=== PATIENT | male | born 1980 | race Caucasian/White ===

== ENCOUNTER 2022-12-24 00:12 | Emergency (ER) | payer BC ==
--- OUTSIDE RECORDS SUMMARY | 2022-12-24 00:23 | XMS REPORT | Continuity of Care Document ---
:1980 Author Organization [facility] t Address [address] [facility] [address] [place] [address] Care Team Providers Name Role Phone OSVALDO KING Primary Care Physician Unavailable Osvaldo King Attending Clinician Unavailable Johanna King Attending Clinician Unavailable Raegan KHAN, Celina Sparks Attending Clinician Unavailable LEON MANN Attending Clinician Unavailable Manny Anand MD Attending Clinician Ifeoma Espinoza DO Attending Clinician VICKY FIGUEROA Attending Clinician Unavailable Daphnie Garcia LVN Attending Clinician MARITO PINZON Attending Clinician Unavailable Lam Corrigan Attending Clinician Ninfa Sherman MD Attending Clinician Marito Pinzon MD Attending Clinician LAM NAVARRO Attending Clinician Unavailable Vicky Figueroa MD Attending Clinician Doctor Unassigned, [place] Attending Clinician Unavailable JOHNATHAN WALKER Attending Clinician Unavailable JOHNATHAN AWLKER Attending Clinician Unavailable NOVA GOMEZ Attending Clinician Unavailable Gomez MD, Nova M Attending Clinician EsquivelArabella ANP, Tamika Attending Clinician [phone] LITO BEAUCHAMP Attending Clinician Unavailable Favian ALCANTAR, Alice Attending Clinician Pepe HERRON, [place] Attending Clinician Maria L HERRON, Yvrose Attending Clinician YVROSE LISA Attending Clinician Unavailable Nils TABARES, [place] Attending Clinician MERCED DISLA Attending Clinician Unavailable CASE FUCHS Attending Clinician Unavailable Akila Amaya MD Attending Clinician Case Fuchs MD Attending Clinician ORLIN SEBASTIAN Attending Clinician Unavailable 2, [facility] Attending Clinician Unavailable [facility], [facility] Main Attending Clinician Unavailable Mayte ALCANTAR, Charlie Santos Attending Clinician Jose Attending Clinician Unavailable Neo Islas DO Attending Clinician Barron ALCANTAR, Samaria R Attending Clinician Irena Myles MD Attending Clinician IRENA MYLES Attending Clinician Unavailable Whitney BARKER Attending Clinician Unavailable Whitney Max Attending Clinician [facility] Attending Clinician Unavailable Sydney ALCANTAR, Velma Attending Clinician JAMES CANO Attending Clinician Unavailable James Cano MD Attending Clinician JOHN CARRANZA K.H. Attending Clinician Unavailable John Carranza MD K.H. Attending Clinician , [facility] Echo Room 1 - Attending Clinician Unavailable Grisel Arguelles MD Attending Clinician NIKOS DIAZ Attending Clinician Unavailable Nikos Diaz MD Attending Clinician Unknown, Attending Attending Clinician Unavailable Reinier KHAN, Celina Attending Clinician JESSICA GARNER Attending Clinician Unavailable Winnie ALCANTAR, Daphnie Pepper Attending Clinician [phone] Jessica Garner MD Attending Clinician Katya Cleary MD Attending Clinician Shaan Hassan MD Attending Clinician IFEOMA ESPINOZA Admitting Clinician Unavailable Ifeoma Espinoza DO Admitting Clinician MARITO PINZON Admitting Clinician Unavailable Marito Pinzon MD Admitting Clinician NOVA GOMEZ Admitting Clinician Unavailable CASE FUCHS Admitting Clinician Unavailable Case Fuchs MD Admitting Clinician Jose Admitting Clinician Unavailable Whitney BARKER Admitting Clinician Unavailable YVROSE LISA Admitting Clinician Unavailable NIKOS DIAZ Admitting Clinician Unavailable JESSICA GARNER Admitting Clinician Unavailable Jessica Garner MD Admitting Clinician Shaan Hassan MD Admitting Clinician Payers Payer Name Policy Type Policy Number Effective Date Expiration Date S oscar WONG BCBS BLUE [id number] 2018 ADVANTAGE O 00:00:00 [employer] Blue 6 [id number] [facility] Problems Condition Condition Condition Status Onset Resolution Last Treating Co mments Source Name Details Category Date Date Treatment Clinician Date Mixed Mixed Disease Active Univers hyperlipid hyperlipid 03-27 it y of emia emia 00:00: [place] 00 Medical Branch Abdominal Abdominal Disease Active Uni vers pain, pain, 03-27 it[place] of unspecifie [place]spec[place] d d 00 Medical abdominal abdominal Bran ch location location Acute Acute Disease Active Univers pancreatit pancreatit 4-14 it y of is without is without 00:[place] necrosis necrosis 00 Medica l or or Branch infection, infection, unspecifie unspecifie d d Chronic Chronic Disease Active 2020-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 0-21 ity of pancreatit pancreatit 00:[place]: [place] is [place] 00 Medical Branch Vitamin D Vitamin D Disease Active 2020-07 Uni vers deficiency deficiency 0-07 it y of 00:00: [place] 00 Medical Branch Fatigue, Fatigue, Disease Active 2019-07 Unive rs unspecifie unspecifie 0-02 it y of d type d type 00:00: [place] 00 Medical Branch Herpes Herpes Disease Active 2020- Univers zoster zoster 7-02 ity of without without 00:00: [place] complicati complicati 00 Me dical on on Branch Pericardia Pericardia Disease Active 2020- U nivers l effusion l effusion 3-20 it y of 00:00: [place] 00 [facility] Branch [facility] Disease Active 2020- Unive rs discharge discharge 3-20 ity of follow-up follow-up 00:[place] 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 3-20 ity of zoster zoster 00:00: [place] 00 Medical Branch Incidental Incidental Disease Active 2020-0 U nivers lung lung 3-20 ity of nodule, > nodule, > 00:00[place] 3mm and < 3mm and < 00 Medi jory 8mm 8mm Branch Chest pain Chest pain Disease Active 2020-0 U nivers in adult in adult 3-14 ity of 00:00: [place] 00 Medical Branch Pain of Pain of Disease Active 2019- Univers upper upper 0-07 ity of abdomen abdomen 00:00: [place] 00 Medical Branch Biliary Biliary Disease Active 2019 Univers sludge sludge 0-07 ity of 00:00: [place] 00 Medical Branch Continuous Continuous Disease Active 2019- U nivers dependence dependence 0-07 it y of on on 00:00: [place] cigarette cigarette 00 Medi jory smoking smoking Branch Nicotine Nicotine Disease Active 2019- Unive rs dependence dependence 9-30 it y of with with 00:00: [place] current current 00 Medical use use Branch Biliary Biliary Disease Active 2019- Univers disease disease 9-30 ity of with with 00:00: [place] obstructio obstructio 00 Me dical n n Branch Drug-induc Drug-induc Disease Active 2019- U nivers ed ed 9-30 ity of constipati constipati 00:[place]: [place] on on Medical Branch Nicotine Nicotine Disease Active Unive rs dependence dependence 04-20 it y of with with 00:00: [place] current current 00 Medical use use Branch Acute Acute Disease Active Univers pancreatit pancreatit 04-01 it y of is without is without 00:00: [place] infection infection 00 Medi jory or or Branch necrosis, necrosis, unspecifie unspecifie d d pancreatit pancreatit is type is type Obesity Obesity Disease Active Univers (BMI (BMI 9-11 ity of 30-39.9) 30-39.9) 00:00: [place] 00 Medical Branch [id number] Elevated Problem Comm on cholestero Spirit [facility] Chronic Problem Common pancreatit pancreatit Sp anu is is - [facility] Gout Gout Problem Common Spirit [facility] Gastroesop GERD Problem Commo n hageal (gastroeso Spirit reflux phageal - [facility] disease reflux St disease) [facility] Hypertrigl Hypertrigl Problem C ommon yceridemia yceridemia Sp anu - [facility] Chronic Chronic Problem Common pain pain Spirit [facility] [id number] Moderate Problem Common major Spirit depression [facility] Allergies, Adverse Reactions, Alerts Allergy Allergy Status Severity Reaction(s) Onset Inactive Treating Comm ents Source Name Type Date Date Clinician MORPHINE DRUG Active Low ITCHING Univers (PF) 03-28 ity of 00:00: [place] Medical [place] Morphine Propensi Active Rash Univer s (Pf) ty to 03-28 ity of adverse 00:00: [place] reaction 00 Medical s Branch NO KNOWN Drug Active Univers ALLERGIE Class ity of S [facility] Social History Social Habit Start Date Stop Date Quantity Comments Source Sex Assigned At Common Sp anu - [facility] History of Passive smoker University of tobacco use [facility] Alcohol intake 2022-11-04 2022-11-04 Ex-drinker University of 00:00:00 00:00:00 (finding) [facility] Exposure to 2022-10-24 2022-11-03 Not sure [facility] SARS-CoV-2 00:00:00 16:59:00 [facility] (event) Branch Tobacco use and 2022-11-03 2022-11-03 Smokeless tobacco Un iversity of exposure 00:00:00 00:00:00 non-user [facility] Smoking Status Start Date Stop Date Source Light Tobacco Smoker Edis Díaz Smokes tobacco daily 2022-11-03 00:00:00 Univers ity of [facility] Medications Ordered Filled Start Stop Current Ordering Indication Dosage Frequency Signature Comments Components Source Medication Medication Date Date Medication? Clinician (SIG) Name Name FENTanyl PF Yes 50ug 50 mcg, Uni vers (SUBLIMAZE 4-16 Slow IV ity of (PF)) 14:24: Push, [place] injection 07 Q3HPRN, Medical 50 mcg Starting Branch on [place] 11/04/22 at 0924, Until Discontinu ed, Routine, Pain (scale 7-10) fenofibrate Yes 134mg 134 mg, Un fanny micronized 4-16 Oral, ity of (LOFIBRA) 14:00: DAILY, [place] capsule 134 00 First dose Me dical mg on [facility] 11/04/22 at 0900, Until Discontinu ed, Routine enoxaparin Yes 40mg 40 mg, Unive rs (LOVENOX) 4-16 Subcutaneo ity of injection 14:00: [place], DAILY, [place] 40 mg 00 First dose Medical on [facility] 11/04/22 at 0900, Until Discontinu ed, Routine D10W 0.45% 0 Yes 1000mL at 125 Uni vers NaCl (1/2 4-16 mL/hr, IV ity o f NS) IV 13:00: Infusion, [place] infusion 00 CONTINUOUS Medic al 1,000 mL , Starting Branc h on [place] 11/04/22 at 0800, Until Discontinu ed, Routine LOVAZA 0 Yes 2g 2 g, Oral, Unive rs (omega-3-ac 4-16 BID, First it y of id ethyl 13:00: dose on [place] esters) 00 [place] Medical capsule 2 g 11/04/22 at Br anch 0800, Until Discontinu ed, Routine HYDROcodone 0 2022- No 1{tbl} Take 1 U nivers -acetaminop 4-16 04-16 tablet by it y of hen 5-325 11:57: 00:00 mouth [place] mg tablet 41 :00 every 6 Medical (six) Branch hours as needed. Taken as needed for pancreatic pain HYDROmorpho 2022-0 2022- No 1mg 1 mg, Slow Univers ne 11-04 04-16 IV Push, ity of (DILAUDID) 11:30: 13:24 Q3HPRN, [place] as injection 1 00 :31 Starting Medi jory mg on [facility] 11/04/22 at 0630, Until [place] 11/04/22 at 0824, Routine, Pain (scale 7-10)
U se approved by (Faculty): INTENSIVE CARE UNIT insulin Yes .1U/kg/ 0.1 Univers regular in 4-16 h Units/kg/h ity of 0.9 % NaCl 10:15: r ?90.9 kg [place] (MYXREDLIN) 00 (9.09 Medical 100 mL/hr), IV Branch unit/100 mL Infusion, (1 unit/mL) CONTINUOUS RTU IV , Starting infusion on [place] 11/04/[address] insulin infusion at 0.1 u/kg/hr and keep fixed at that rate. Hold insulin infusion x 1 hour and NHO if BG < 140 mg/dL for instructio ns to increase dextrose fluids. Restart once BG >/= 140 mg/dL
glucagon Yes 1mg 1 mg, Univers (GLUCAGEN 11-04 Intramuscu ity of DIAGNOSTIC 09:14: lar, PRN, [place] KIT) 31 Starting Medical injection 1 on [facility] mg 11/04/22 at 0414, Until Discontinu ed, PILLO, Blood Glucose < or = 70 mg/dL and patient is NPO, unable to swallow or has mental changes. dextrose 50 0 Yes 25mL 25 mL, Univ ers % in water 16 Slow IV ity of (D50W) 09:14: Push, PRN, [place] injection 31 Starting Medica l 25 mL on [facility] 11/04/22 at 0414, Until Discontinu ed, PILLO, Blood Glucose < or = 70 mg/dL and patient is NPO, unable to swallow or has mental status changes. D10W 0.45% 2022-0 2023- No at 125 Univ ers NaCl 11-04-16 mL/hr, IV ity of (1/2NS) IV 08:00: 07:21 Infusion, [place] infusion 00 :00 ONCE, 1 Medical dose, On Branch [place] 11/04/22 at 0300 HYDROmorpho 2022- No 1mg 1 mg, Slow Univers ne 11-04 IV Push, ity of (DILAUDID) 07:30: 06:51 ONCE, 1 [place] as injection 1 00 :00 dose, On Medi jory mg Sun Branch 11/04/22 at 0230, Routine
Use approved by (Faculty): INTENSIVE CARE UNIT D5W 0.45% 2022- No 1000mL at 125 Uni vers NaCl 11-04 mL/hr, ity of (1/2NS) IV 05:15: 07:21 1,000 mL, [place] infusion 00 :00 IV Medical 1,000 mL Infusion, Branch ONCE, 1 dose, On [place] 11/04/22 at 0015, Routine insulin 2022- No .1U/kg/ 0.1 Univer s regular in 11-04 h Units/kg/h it y of 0.9 % NaCl 05:12: 09:18 r ?93 kg [place] (MYXREDLIN) 00 :23 (9.3 Medical 100 mL/hr), IV Branch unit/100 mL Infusion, (1 unit/mL) TITRATE, RTU IV Parameters infusion in Admin. Instr., Starting on [place] 11/04/22 at 0012
PL EASE USE NORMOGLYCE YAMILA
diphenhydrA Yes 25mg 25 mg, Univ ers MINE 11-04 Intravenou ity of (BENADRYL) 04:24: s, Q4HPRN, [place] injection 22 Starting Medica l 25 mg on Sat Branch 11/03/22 at 2324, Until Discontinu ed, Routine, Itching HYDROmorpho 2022- No 1mg 1 mg, Slow Univers ne 11-04 IV Push, ity of (DILAUDID) 04:24: 11:29 Q4HPRN, [place] as injection 1 14 :06 Starting Medi jory mg on [facility] Branch 11/03/22 at 2324, Until [place] 11/04/22 at 0629, Routine, Pain (scale 7-10)
U se approved by (Faculty): INTENS[facility] CARE UNIT ketorolac 2022-0 Yes 15mg 15 mg, Univer s (TORADOL) 11-04 Intramuscu ity of injection 04:17: lar, [place] 15 mg 35 Q6HPRN, Medical Starting Branch on 11/03/22 at 2317, Until Discontinu ed, Routine, Pain (scale 4-6) dextrose 2022-0 Yes 250mL 250 mL, IV Un fanny 10% (D10W) 11-04 Infusion, ity of bolus 04:12: PRN - SEE [place] infusion 08 INSTRUCTIO Medic al 250 mL NS, Branch Administer over 60 Minutes, Other, If blood glucose is < or = 70 mg/dL and patient is unable to swallow or has mental status changes, Starting on 11/03/22 at 2312
If blood glucose is < or = 70 mg/dL and patient is unable to swallow or has mental status changes (Give glucagon order if patient needs fluid restrictio n): IF IV access available: Dextrose 10%. 1. 125 mL (? bag) of D10W IV infusion - equivalent to 12.5 g dextrose 2. Blood glucose - draw blood glucose 15 minutes after D10W Administra tion. 3. If blood glucose is < 80 mg/dL, repeat.
glucagon 0 Yes 1mg 1 mg, Univers (GLUCAGEN 11-04 Intramuscu ity of DIAGNOSTIC 04:12: [place], PRN, [place] KIT) 00 Starting Medical injection 1 on Sat Branch mg 11/03/22 at 2312, Until Discontinu ed, PILLO, Blood Glucose < or = 70 mg/dL and patient is NPO, unable to swallow or has mental changes. ketorolac 0 2022- No 30mg 30 mg, Unive rs (TORADOL) 11-04 Slow IV ity of injection 03:00: 02:13 Push, [place] 30 mg 00 :00 ONCE, 1 Medical dose, On Branch 11/03/22 at 2200, PILLO FENTanyl PF 2022-0 2022- No 100ug 100 mcg, Univers (SUBLIMAZE 11-04 Slow IV ity o f (PF)) 01:45: 00:51 [place], [place] injection 00 :00 ONCE, 1 Medical 100 mcg dose, On Branch 11/03/22 at 2045, STAT iopamidol 2022- No [id number] 80mL 80 mL, U nivers (ISOVUE 11-04 Intravenou ity o f 370-500 mL) 01:05: 01:30 s, ONCE, 1 [place] injection 00 :00 dose, On Medica l 80 mL Sat Branch 11/03/22 at 2030, Routine FENTanyl PF 2022- No 75ug 75 mcg, Un fanny (SUBLIMAZE 11-04 Slow IV ity o f (PF)) 00:45: 23:51 [place], [place] injection 00 :00 ONCE, 1 Medical 75 mcg dose, On Branch 11/03/22 at 1945, Routine maalox:diph No 15mL 15 mL, Uni vers enhydrAMINE 11-04 Oral, ity of :lidocaine 00:00: 23:58 ONCE, 1 [place] as 2 % viscous 00 :00 dose, On Medi jory 1:1:1 Sat [place] ([facility] 11/03/22 at [facility]) 1900, IPLLO oral suspension 15 mL NaCl 0.9% 2022- No 1000mL at 999 Uni vers (NS) bolus 11-03-15 mL/hr, ity of infusion 23:15: 23:47 1,000 mL, [place] as 1,000 mL 00 :00 IV Medical Infusion, Branch ONCE, 1 dose, On 11/03/22 at 1815, STAT metoclopram 2022- No 10mg 10 mg, Uni vers heidi HCl 11-03 Slow IV ity of (REGLAN) 22:30: 22:40 Push, [place] injection 00 :00 ONCE, 1 Medical 10 mg dose, On Branch 11/03/22 at 1730, PILLO rosuvastati Yes 40mg 40 mg, Univ ers n (CRESTOR) 9-08 Oral, QHS, it y of tablet 40 02:00: First dose [place] mg 00 on Wed Medical 03/28/22 at Branch 2100, Until Discontinu ed, Routine morphine ER 2021-0 Yes 15mg 15 mg, Univ ers (MS CONTIN) 03-28 Oral, ity of 12 hr 20:30: Q12H, [place] tablet 15 00 First dose Medi jory mg on Sat [place] 03/28/22 at 1530, Until Discontinu ed, Routine lactated 2021-0 Yes 1000mL at 150 Unive rs ringers IV 9-07 mL/hr, ity of infusion 15:00: 1,000 mL, [place] 1,000 mL 00 IV Medical Infusion, [place] CONTINUOUS , Starting on Sat03/28/22 at 1000, Until Discontinu ed, Routine buPROPion 2021-0 Yes 100mg 100 mg, Univ ers (WELLBUTRIN 03-28 Oral, BID, it y of ) tablet 14:30: First dose [place] as 100 mg 00 on [facility] 03/28/22 at Branch 0930, Until Discontinu ed, Routine pantoprazol 2021-0 Yes 40mg 40 mg, Univ ers e 03-28 Oral, ity of (PROTONIX) 14:00: DAILY, [place] EC tablet 00 First dose Medi jory 40 mg on Sat [place] 03/28/22 at 0900, Until Discontinu ed, Routine nicotine 2021-0 Yes 1{patch 1 Patch, Un fanny (NICODERM) 03-28 } Topical, ity o f 21 mg/24 hr 14:00: Administer [place] patch 1 00 over 24 Medical Patch Hours, [place] DAILY, First dose on Sat03/28/22 at 0900, Until Discontinu ed, Routine fenofibrate 2021-0 Yes 134mg 134 mg, Un fanny micronized 03-28 Oral, ity of (LOFIBRA) 14:00: DAILY, [place] capsule 134 00 First dose Me dical mg on Sat [place] 03/28/22 at 0900, Until Discontinu ed, Routine ergocalcife 202-0 Yes [id number] 50,000 Un fanny rol 07 Units, ity of (vitamin 14:00: Oral, [place] d2) 00 QWEEKLY, Medical (CALCIFEROL First dose Br anch ) capsule on Sat 50,000 03/28/22 at Units 0900, Until Discontinu ed, Routine docusate 2021-0 Yes 100mg 100 mg, Unive rs (COLACE) 03-28 Oral, ity of capsule 100 14:00: DAILY, [place] mg 00 First dose Medical on Sat Branch 03/28/22 at 0900, Until Discontinu ed, Routine enoxaparin Yes 40mg 40 mg, Unive rs (LOVENOX) 03-28 Subcutaneo ity of injection 14:00: [place], DAILY, [place] 40 mg 00 First dose Medical on Sat Branch 03/28/22 at 0900, Until Discontinu ed, Routine diphenhydrA Yes 25mg 25 mg, Univ ers MINE 03-28 Oral, ity of (BENADRYL) 13:57: Q6HPRN, [place] tablet 25 47 Starting Medica l mg on Sat Branch 03/28/22 at 0857, Until Discontinu ed, Routine, Mild Rash, Itching FENTanyl PF Yes 50ug 50 mcg, Uni vers (SUBLIMAZE 03-28 Slow IV ity of (PF)) 13:57: Push, [place] injection 36 Q4HPRN, Medical 50 mcg Starting Branch on Sat03/28/22 at 0857, Until Discontinu ed, Routine, Pain (scale 7-10) lipase-prot 2021- No 1{capsu 1 capsule, Univers ease-amylas 03-28 le} Oral, TID it y of e 13:00: 12:59 MEALS, 9 [place] (PANCREAZE) 00 :00 doses, Medica l 16,800-56,8 First dose Br anch 00- 98,400 on Sat03/28/22 at capsule 1 0800, Last capsule dose on Sat03/30/22 at 1700, Routine methylpredn 2021- No 60mg 60 mg, Uni vers isolone sod 03-28 Intravenou i ty of succ 09:00: 08:12 s, ONCE, 1 [place] (SOLU-MEDRO 00 :00 dose, On Medi jory L) Sat03/28/22 Branch injection at 0400, 2 60 mg mL piperacilli 2021- No 3.375g 3.375 g, Univers n-tazobacta 03-28 IV ity of m (ZOSYN) 05:30: 05:29 Piggyback, [place] 3.375 g in 00 :00 Q8H ABX, 9 Med ical NaCl 0.9% doses, Branch (NS) 50 mL First dose MINI-BAG on Sat03/28/22 at 0030, Last dose on Sat03/30/22 at 1630, Administer over 4 Hours, 50 mL
Reas on for Anti-Infec tive: Documented Infection< br>Docu mented Infection Site: Abdominal< br>Duratio n of Therapy: 10 days insulin 2021- No 2U/h 2 Units/hr Uni vers regular in 03-28 (2 mL/hr), it y of 0.9 % NaCl 04:59: 11:58 IV [place] (MYXREDLIN) 19 :19 Infusion, Med ical 100 TITRATE, Branch unit/100 mL Parameters (1 unit/mL) in Admin. RTU IV Instr., infusion Starting on Sat03/27/22 at 2359, For 7 hours
P LEASE USE NORMOGLYCE YAMILA CALCULATOR &nbs p;For Patients WITHOUT ESRD: &nbs p;INITIA TION OF INSULIN DRIP:&nb sp; I f two consecutiv e blood glucose levels (BG) are at or above 180 mg/dL: begin continuous intravenou s infusion of regular Insulin (100 units/100 mL NS) at the following rate: as follows:&n bsp; 1 unit/hr (1 mL/hr.) if initial BG between 180 and 220 mg/dL OR 2 units/hr (2 mL/hr.) if initial BG above 220 mg/dL. &nbs p;Check BG at least every hour until three consecutiv e BG measuremen ts remain in the 140- 180 mg/dL range; BG monitoring may then change to every 2 hours if patient is otherwise stable. Go back to closer BG monitoring as soon as condition warrants. &nbs p; INSULIN RATE ADJUSTMENT INSTRUCTIO NS (to keep BG in the 140- 180 mg/dL range) &n bsp;FOR BLOOD GLUCOSE LESS THAN OR EQUAL THAN 70 MG/DL: Stop insulin infusion, notify ICU warehouse shift supervisor, and treat using hypoglycem ia protocol. Once BG &n bsp;greate r than 80 mg/dL start monitoring glucose every hour. Restart Insulin infusion at HALF of prior rate only when TWO consecutiv e BG levels 1 hour apart are at or above 180 mg/dL. &nbs p;FOR BLOOD GLUCOSE BETWEEN 71-139 MG/DL:&nbs p; St op insulin and continue to check BG every hour.&nbsp ; Res tart insulin infusion at HALF of prior rate once BG is above 140 mg/dL.&nbs p; FO R BLOOD GLUCOSE BETWEEN 140-180 MG/DL: Monitor BG hourly; may recheck BG in 2 hours if BG has been stable within this range for THREE consecutiv e readings.& nbsp;&nbsp ;If BG is stable (+/- 20 mg/dL change) at 140-180 mg/dL, no insulin rate change is needed.&nb sp; If BG hourly levels decreasing by more than 20 mg/dL: DECREASE insulin rate by 1.0 unit/hr. If BG hourly levels increasing by more than 20 mg/dL: INCREASE insulin rate by 0.5 unit/hr.&n bsp; FOR BLOOD GLUCOSE ABOVE 180 MG/DL: Monitor BG hourly. If BG falls by less than 40 mg/dL from previous measure, increase insulin rate by 1 unit an hour if BG is between 180 and 220 mg/dL and by 2 units an hour if BG is above 220 mg/dL. Recheck BG in 1 hour.&nbsp ; If BG falls by 40 mg/dL or more from previous measure, then no rate change is needed.&nb sp; N otify ICU Undertaker Assistant if BG remains above 220 mg/dL for longer than 4 hours despite treatment.
D5W 0.9% 2021- No IV Univers NaCl (NS) 1 03-28 Infusion, it y of L + KCL 20 04:15: 13:59 at 125 [place] mEq 00 :07 mL/hr, Medical CONTINUOUS Branch , Starting on Sat03/27/22 at 2315, Until Sat03/28/22 at 0859, Routine glucagon Yes 1mg 1 mg, Univers (GLUCAGEN 03-28 Intramuscu ity of DIAGNOSTIC 03:59: [place], PRN, [place] KIT) 19 Starting Medical injection 1 on e Branch mg 03/27/22 at 2259, Until Discontinu ed, PILLO, Blood Glucose < or = 70 mg/dL and patient is unable to swallow or has mental changes. dextrose 50 2021- Yes 25mL 25 mL, Univ ers % in water 03-28 Slow IV ity of (D50W) 03:59: Push, PRN, [place] injection 19 Starting Medica l 25 mL on e Branch 03/27/22 at 2259, Until Discontinu ed, PILLO, Blood Glucose < or = 70 mg/dL and patient is unable to swallow or has mental status changes. ondansetron Yes 4mg 4 mg, Slow Univers (ZOFRAN 03-28 IV Push, ity of (PF)) 03:56: Q6HPRN, [place] injection 4 38 Starting Medi jory mg on [facility] Branch 03/27/22 at 2256, Until Discontinu ed, Routine, Nausea and Vomiting (N/V) HYDROcodone 2021- No 1{tbl} 1 tablet, Univers -acetaminop 03-28 Oral, ity of hen (NORCO 03:56: 03:55 Q4HPRN, [place] as 5) 5-325 mg 25 :25 Starting Medi jory tablet 1 on [facility] tablet 03/27/22 at 2256, Until Maryann 03/29/22 at 2255, Routine, Pain (scale 4-6) morpHINE (4 2021-2021- No 4mg 4 mg, Slow Univers mg/mL) 03-28 IV Push, ity of injection 4 03:56: 13:59 Q4HPRN, [place] mg 11 :07 Starting Medical on Branch 03/27/22 at 2256, Until 03/28/22 at 0859, Routine, Pain (scale 7-10) acetaminoph 2021- Yes 650mg 650 mg, Un fanny en 03-28 Oral, ity of (TYLENOL) 03:55: Q6HPRN, [place] tablet 650 44 Starting Medic al mg on [facility] Branch 03/27/22 at 2255, Until Discontinu ed, Routine, Pain (scale 1-3) ondansetron 2021- No 4mg 4 mg, Slow Univers (ZOFRAN 03-28 IV Push, ity of (PF)) 01:01: 01:02 ONCE, 1 [place] injection 4 00 :00 dose, On Medi jory mg 03/27/22 Branch at 2014, PILLO morpHINE (4 2021- No 4mg 4 mg, Slow Univers mg/mL) 03-28 IV Push, ity of injection 4 01:01: 01:02 ONCE, 1 [place] mg 00 :00 dose, On Medical [facility] 03/27/22 Branch at 2014, STAT iopamidol 2021- No [id number] 65mL 65 mL, U nivers (ISOVUE 03-27 Intravenou ity o f 370-500 mL) 23:15: 23:15 s, ONCE, 1 [place] injection 00 :00 dose, On Medica l 65 mL 03/27/22 Branch at 1815, Routine morpHINE (4 2021- No 4mg 4 mg, Slow Univers mg/mL) 03-27 IV Push, ity of injection 4 22:15: 22:05 ONCE, 1 [place] mg 00 :[place] dose, On Medical [facility] 03/27/22 Branch at 1715, STAT ketorolac 2021- No 30mg 30 mg, Unive rs (TORADOL) 03-27 Slow IV ity of injection 21:45: 20:42 Push, [place] 30 mg 00 :00 ONCE, 1 Medical dose, On Branch [facility] 03/27/22 at 1645, PILLO ondansetron 2021- No 4mg 4 mg, Slow Univers (ZOFRAN 03-27 IV Push, ity of (PF)) 20:45: 20:42 ONCE, 1 [place] injection 4 00 :00 dose, On Medi jory mg [facility] 03/27/22 Branch at 1545, PILLO rosuvastati Yes [id number] 40mg Take 1 Univers n 40 mg 03-27 tablet by ity of tablet 00:00: mouth at [place] 00 bedtime. Medical Branch rosuvastati Yes [id number] 40mg Take 1 Univers n 40 mg 9-06 tablet by ity of tablet 00:00: mouth at [place] [address] bedtime. Medical Branch rosuvastati Yes [id number] 40mg Take 1 Univers n 40 mg 9-06 tablet by ity of tablet 00:00: mouth at [place] 00 bedtime. Medical Branch rosuvastati 2022- No [id number] 40mg Take 1 Univers n 40 mg 9-06 04-16 tablet by ity of tablet 00:00: 00:00 mouth at [place] 00 :00 bedtime. Medical Branch icosapent Yes [id number] TAKE 2 U nivers ethyL 1 7-30 CAPSULES ity of gram 00:00: BY MOUTH [place] capsule 00 TWICE Medical DAILY WITH Branch FOOD. SWALLOW WHOLE AND DO NOT CHEW OR OPEN OR DISSOLVE OR CRUSH icosapent Yes [id number] TAKE 2 U nivers ethyL 1 7-30 CAPSULES ity of gram 00:00: BY MOUTH [place] capsule 00 TWICE Medical DAILY WITH Branch FOOD. SWALLOW WHOLE AND DO NOT CHEW OR OPEN OR DISSOLVE OR CRUSH icosapent Yes [id number] TAKE 2 U nivers ethyL 1 7-30 CAPSULES ity of gram 00:00: BY MOUTH [place] capsule 00 TWICE Medical DAILY WITH Branch FOOD. SWALLOW WHOLE AND DO NOT CHEW OR OPEN OR DISSOLVE OR CRUSH icosapent 2022- No [id number] TAKE 2 Univers ethyL 1 7-30 04-16 CAPSULES ity of gram 00:00: 00:00 BY MOUTH [place] capsule 00 :00 TWICE Medical DAILY WITH Branch FOOD. SWALLOW WHOLE AND DO NOT CHEW OR OPEN OR DISSOLVE OR CRUSH Econazole Econazole 2021- No 1{appli BID Econazole Nitrate 1 % Nitrate 1 % 01-23 cation} Nitrate 1 00:00: 00:00 % 00 :00 Acetaminoph Acetaminoph 2021- No 1{table TID Acetaminop en-Codeine en-Codeine 01-05 t_as_ne hen-Codein 300-30 MG 300-30 MG 00:00: 00:00 eded} e 300-30 00 :00 MG DULoxetine DULoxetine 2022-0 No 1{capsu QD DULoxetine HCl 20 MG HCl 20 MG 6-15 le} HCl 20 MG 00:00: 00 DULoxetine DULoxetine 2021-0 No 1{capsu QD DULoxetine HCl 20 MG HCl 20 MG 6-15 le} HCl 20 MG 00:00: 00 DULoxetine DULoxetine 2021-0 No 1{capsu QD DULoxetine HCl 20 MG HCl 20 MG 6-15 le} HCl 20 MG 00:00: 00 DULoxetine DULoxetine 2021-0 No 1{capsu QD DULoxetine HCl 20 MG HCl 20 MG 6-15 le} HCl 20 MG 00:00: 00 Acetaminoph Acetaminoph 2021-0 202- No 1{table TID Acetaminop en-Codeine en-Codeine 12-21 t_as_ne hen-Codein 300-30 MG 300-30 MG 00:00: 00:00 eded} e 300-30 00 :00 MG Acetaminoph Acetaminoph 202- No 1{table TID Acetaminop en-Codeine en-Codeine 12-21 t_as_ne hen-Codein 300-30 MG 300-30 MG 00:00: 00:00 eded} e 300-30 00 :00 MG ergocalcife 2020-07 Yes [id number] Take 1 Univers rol, 0-07 capsule by ity of vitamin d2, 00:00: mouth [place] 1,250 mcg 00 weekly. Medical (50,000 Branch unit) capsule ergocalcife 2020-07 Yes [id number] Take 1 Univers rol, 0-07 capsule by ity of vitamin d2, 00:00: mouth [place] 1,250 mcg 00 weekly. Medical (50,000 Branch unit) capsule ergocalcife 2020-07 Yes [id number] Take 1 Univers rol, 0-07 capsule by ity of vitamin d2, 00:00: mouth [place] 1,250 mcg 00 weekly. Medical (50,000 Branch unit) capsule ergocalcife 2020-07 Yes [id number] Take 1 Univers rol, 0-07 capsule by ity of vitamin d2, 00:00: mouth [place] 1,250 mcg 00 weekly. Medical (50,000 Branch unit) capsule ergocalcife 2020-07- No [id number] Take 1 Univers rol, 0-07 04-16 capsule by ity of vitamin d2, 00:00: 00:00 [place] 1,250 [place]cg 00 :00 weekly. Medical (50,000 Branch unit) capsule buPROPion Yes [id number] 100mg Take 1 Univers SR 9-29 tablet by ity of (WELLBUTRIN 00:00: mouth 2 [place] SR) 100 mg 00 (two) Medical SR tablet times Branch daily. lipase-prot Yes [id number] 3000U Take 1 Univers ease-amylas 9-29 capsule by it y of e (CREON) 00:00: mouth 3 [place] 3,000-9,500 00 (three) Medic al - 15,000 times Branch unit daily with capsule meals as needed (Abdominal pain). pantoprazol Yes [id number] 40mg Take 1 Univers e 40 mg EC 9-29 tablet by ity of tablet 00:00: mouth [place] 00 daily. Medical Branch fenofibrate Yes [id number] 134mg Take 1 Univers micronized 9-29 capsule by ity of 134 mg 00:00: mouth [place] capsule 00 daily. Medical Branch nicotine 14 Yes [id number] 1{patch Apply 1 Univers mg/24 hr 9-29 } Patch to ity of patch 00:00: area(s) [place] 00 every 24 Medical (twenty-fo Branch ur) hours. Apply 21mg patch daily x 6 weeks; then apply 14mf patch daily x 2 weeks; then apply 7mg patch daily x 2 weeks. Stop smoking on initiation of therapy nicotine 21 Yes [id number] 1{patch Apply 1 Univers mg/24 hr 9-29 } Patch to ity of patch 00:00: area(s) [place] 00 daily. Medical Apply 21mg Branch patch daily x 6 weeks; then apply 14mg patch daily x 2 weeks; then apply 7mg patch daily x 2 weeks. Stop smoking on initiation of therapy nicotine 7 Yes [id number] 1{patch Apply 1 Univers mg/24 hr 9-29 } Patch to ity of patch 00:00: area(s) [place] 00 every 24 Medical (twenty-fo Branch ur) hours. Apply 21mg patch daily x 6 weeks; then apply 14mg patch daily x 2 weeks; then apply 7mg patch daily x 2 weeks. Stop smoking on initiation of therapy buPROPion Yes [id number] 100mg Take 1 Univers SR 9-29 tablet by ity of (WELLBUTRIN 00:00: mouth 2 [place] SR) 100 mg 00 (two) Medical SR tablet times Branch daily. lipase-prot Yes [id number] 3000U Take 1 Univers ease-amylas 9-29 capsule by it y of e (CREON) 00:00: mouth 3 [place] 3,000-9,500 00 (three) Medic al - 15,000 times Branch unit daily with capsule meals as needed (Abdominal pain). pantoprazol Yes [id number] 40mg Take 1 Univers e 40 mg EC 9-29 tablet by ity of tablet 00:00: mouth [place] 00 daily. Medical Branch fenofibrate Yes [id number] 134mg Take 1 Univers micronized 9-29 capsule by ity of 134 mg 00:00: mouth [place] capsule 00 daily. Medical Branch nicotine 21 Yes [id number] 1{patch Apply 1 Univers mg/24 hr 9-29 } Patch to ity of patch 00:00: area(s) [place] 00 daily. Medical Apply 21mg Branch patch daily x 6 weeks; then apply 14mg patch daily x 2 weeks; then apply 7mg patch daily x 2 weeks. Stop smoking on initiation of therapy buPROPion Yes [id number] 100mg Take 1 Univers SR 9-29 tablet by ity of (WELLBUTRIN 00:00: mouth 2 [place] SR) 100 mg 00 (two) Medical SR tablet times Branch daily. lipase-prot Yes [id number] 3000U Take 1 Univers ease-amylas 9-29 capsule by it y of e (CREON) 00:00: mouth 3 [place] 3,000-9,500 00 (three) Medic al - 15,000 times Branch unit daily with capsule meals as needed (Abdominal pain). pantoprazol Yes [id number] 40mg Take 1 Univers e 40 mg EC 9-29 tablet by ity of tablet 00:00: mouth [place] 00 daily. Medical Branch fenofibrate Yes [id number] 134mg Take 1 Univers micronized 9-29 capsule by ity of 134 mg 00:00: mouth [place] capsule 00 daily. Medical Branch nicotine 21 Yes [id number] 1{patch Apply 1 Univers mg/24 hr 9-29 } Patch to ity of patch 00:00: area(s) [place] 00 daily. Medical Apply 21mg Branch patch daily x 6 weeks; then apply 14mg patch daily x 2 weeks; then apply 7mg patch daily x 2 weeks. Stop smoking on initiation of therapy buPROPion Yes [id number] 100mg Take 1 Univers SR 9-29 tablet by ity of (WELLBUTRIN 00:00: mouth 2 [place] SR) 100 mg 00 (two) Medical SR tablet times Branch daily. lipase-prot Yes [id number] 3000U Take 1 Univers ease-amylas 9-29 capsule by it y of e (CREON) 00:00: mouth 3 [place] 3,000-9,500 00 (three) Medic al - 15,000 times Branch unit daily with capsule meals as needed (Abdominal pain). pantoprazol Yes [id number] 40mg Take 1 Univers e 40 mg EC 9-29 tablet by ity of tablet 00:00: mouth [place] 00 daily. Medical Branch fenofibrate Yes [id number] 134mg Take 1 Univers micronized 9-29 capsule by ity of 134 mg 00:00: mouth [place] capsule 00 daily. Medical Branch nicotine 21 Yes [id number] 1{patch Apply 1 Univers mg/24 hr 9-29 } Patch to ity of patch 00:00: area(s) [place] 00 daily. Medical Apply 21mg Branch patch daily x 6 weeks; then apply 14mg patch daily x 2 weeks; then apply 7mg patch daily x 2 weeks. Stop smoking on initiation of therapy buPROPion 2022- No [id number] 100mg Take 1 Univers SR 9-29 04-16 tablet by ity of (WELLBUTRIN 00:00: 00:00 mouth 2 [place] SR) 100 mg 00 :00 (two) Medical SR tablet times Branch daily. lipase-prot 2022- No [id number] 3000U Take 1 Univers ease-amylas 9-29 04-16 capsule by i ty of e (CREON) 00:00: 00:00 mouth 3 [place] 3,000-9,500 00 :00 (three) Medic al - 15,000 times Branch unit daily with capsule meals as needed (Abdominal pain). pantoprazol 2022- No [id number] 40mg Take 1 Univers e 40 mg EC 04-19 tablet by ity of tablet 00:00: 00:00 mouth [place] 00 :00 daily. Medical Branch fenofibrate 2022- No [id number] 134mg Take 1 Univers micronized 04-19 capsule by it y of 134 mg 00:00: 00:00 mouth [place] capsule 00 :00 daily. Medical Branch nicotine 21 2022- No [id number] 1{patch Apply 1 Univers mg/24 hr 04-19 } Patch to ity of patch 00:00: 00:00 [facility](s) [place] 00 :00 daily. Medical Apply 21mg Branch patch daily x 6 weeks; then apply 14mg patch daily x 2 weeks; then apply 7mg patch daily x 2 weeks. Stop smoking on initiation of therapy atorvastati 2021- No [id number] 80mg Take 1 Univers n 80 mg 04-19 tablet by ity of tablet 00:00: 00:00 mouth at [place] 00 :00 bedtime. Medical Branch nicotine 14 2021- No [id number] 1{patch Apply 1 Univers mg/24 hr 04-19 } Patch to ity of patch 00:00: 00:00 [facility](s) [place] 00 :00 every 24 Medical (twenty-fo Branch ur) hours. Apply 21mg patch daily x 6 weeks; then apply 14mf patch daily x 2 weeks; then apply 7mg patch daily x 2 weeks. Stop smoking on initiation of therapy nicotine 7 2021- No [id number] 1{patch Apply 1 Univers mg/24 hr 04-19 } Patch to ity of patch 00:00: 00:00 [facility](s) [place] 00 :00 every 24 Medical (twenty-fo Branch ur) hours. Apply 21mg patch daily x 6 weeks; then apply 14mg patch daily x 2 weeks; then apply 7mg patch daily x 2 weeks. Stop smoking on initiation of therapy ibuprofen ibuprofen No 1 TID ibuprofen [place] 800 mg 800 mg 800 mg da tablet Take tablet Take tablet Medical 1 tablet 3 1 tablet 3 Take 1 G roup times a day times a day tablet 3 by oral by oral times a route. route. day by oral route. Icosapent Icosapent No 2{capsu BID Icosapent Ethyl 1 GM Ethyl 1 GM les_wit Ethyl 1 GM h_meals } Creon Creon No TID Creon [id number] [phone] UNIT UNIT UNIT DULoxetine DULoxetine No 1{capsu QD DULoxetine HCl 20 MG HCl 20 MG le} HCl 20 MG Fenofibrate Fenofibrate No 1{capsu QD Fenofibrat 134 MG 134 MG le_with e 134 MG _a_meal } Icosapent Icosapent No 2{capsu BID Icosapent Ethyl 1 GM Ethyl 1 GM les_wit Ethyl 1 GM h_meals } Atorvastati Atorvastati No 1{table QD Atorvastat n Calcium n Calcium t} in Calcium 80 MG 80 MG 80 MG Pantoprazol Pantoprazol No 1{table QD Pantoprazo e Sodium 40 e Sodium 40 t} le Sodium MG MG 40 MG Atorvastati Atorvastati No 1{table QD Atorvastat n Calcium n Calcium t} in Calcium 80 MG 80 MG 80 MG Pantoprazol Pantoprazol No 1{table QD Pantoprazo e Sodium 40 e Sodium 40 t} le Sodium MG MG 40 MG Fenofibrate Fenofibrate No 1{capsu QD Fenofibrat 134 MG 134 MG le_with e 134 MG _a_meal } silver silver No silver [place] sulfadiazin sulfadiazin sulfadiazi da e 1 % e 1 % ne 1 % Medical topical topical topical Group cream APPLY cream APPLY cream A 1/16 INCH A 1/16 INCH APPLY A (1.5 MM) (1.5 MM) 1/16 INCH THICK LAYER THICK LAYER (1.5 MM) TO ENTIRE TO ENTIRE THICK BURN AREA BURN AREA LAYER TO BY BY ENTIRE TOPICALROUT TOPICALROUT BURN AREA E 2 TIMES E 2 TIMES BY PER DAY PER DAY TOPICALROU TE 2 TIMES PER DAY Icosapent Icosapent No 2{capsu BID Icosapent Ethyl 1 GM Ethyl 1 GM les_wit Ethyl 1 GM h_meals } Creon Creon No TID Creon [phone] UNIT UNIT UNIT DULoxetine DULoxetine No 1{capsu QD DULoxetine HCl 20 MG HCl 20 MG le} HCl 20 MG Atorvastati Atorvastati No 1{table QD Atorvastat n Calcium n Calcium t} in Calcium 80 MG 80 MG 80 MG Pantoprazol Pantoprazol No 1{table QD Pantoprazo e Sodium 40 e Sodium 40 t} le Sodium MG MG 40 MG Fenofibrate Fenofibrate No 1{capsu QD Fenofibrat 134 MG 134 MG le_with e 134 MG _a_meal } Icosapent Icosapent No 2{capsu BID Icosapent Ethyl 1 GM Ethyl 1 GM les_wit Ethyl 1 GM h_meals } Creon Creon No TID Creon [phone] UNIT UNIT UNIT DULoxetine DULoxetine No 1{capsu QD DULoxetine HCl 20 MG HCl 20 MG le} HCl 20 MG Atorvastati Atorvastati No 1{table QD Atorvastat n Calcium n Calcium t} in Calcium 80 MG 80 MG 80 MG Pantoprazol Pantoprazol No 1{table QD Pantoprazo e Sodium 40 e Sodium 40 t} le Sodium MG MG 40 MG Fenofibrate Fenofibrate No 1{capsu QD Fenofibrat 134 MG 134 MG le_with e 134 MG _a_meal } Icosapent Icosapent No 2{capsu BID Icosapent Ethyl 1 GM Ethyl 1 GM les_wit Ethyl 1 GM h_meals } Creon Creon No TID Creon [phone] UNIT UNIT UNIT DULoxetine DULoxetine No 1{capsu QD DULoxetine HCl 20 MG HCl 20 MG le} HCl 20 MG Pantoprazol Pantoprazol No 1{table QD Pantoprazo e Sodium 40 e Sodium 40 t} le Sodium MG MG 40 MG DULoxetine DULoxetine No 1{capsu QD DULoxetine HCl 40 MG HCl 40 MG le} HCl 40 MG Creon Creon No TID Creon [phone] UNIT UNIT UNIT Icosapent Icosapent No 2{capsu BID Icosapent Ethyl 1 GM Ethyl 1 GM les_wit Ethyl 1 GM h_meals } Fenofibrate Fenofibrate No 1{capsu QD Fenofibrat 134 MG 134 MG le_with e 134 MG _a_meal } Atorvastati Atorvastati No 1{table QD Atorvastat n Calcium n Calcium t} in Calcium 80 MG 80 MG 80 MG Atorvastati Atorvastati No 1{table QD Atorvastat n Calcium n Calcium t} in Calcium 80 MG 80 MG 80 MG Pantoprazol Pantoprazol No 1{table QD Pantoprazo e Sodium 40 e Sodium 40 t} le Sodium MG MG 40 MG Creon Creon No Creon [phone] UNIT UNIT UNIT Fenofibrate Fenofibrate No 1{capsu QD Fenofibrat 134 MG 134 MG le_with e 134 MG _a_meal } Pantoprazol Pantoprazol No 1{table QD Pantoprazo e Sodium 40 e Sodium 40 t} le Sodium MG MG 40 MG Fenofibrate Fenofibrate No 1{capsu QD Fenofibrat 134 MG 134 MG le_with e 134 MG _a_meal } Creon Creon No Creon [phone] UNIT UNIT UNIT Atorvastati Atorvastati No 1{table QD Atorvastat n Calcium n Calcium t} in Calcium 80 MG 80 MG 80 MG Pantoprazol Pantoprazol No 1{table QD Pantoprazo e Sodium 40 e Sodium 40 t} le Sodium MG MG 40 MG Fenofibrate Fenofibrate No 1{capsu QD Fenofibrat 134 MG 134 MG le_with e 134 MG _a_meal } Creon Creon No Creon [phone] UNIT UNIT UNIT Atorvastati Atorvastati No 1{table QD Atorvastat n Calcium n Calcium t} in Calcium 80 MG 80 MG 80 MG Pantoprazol Pantoprazol No 1{table QD Pantoprazo e Sodium 40 e Sodium 40 t} le Sodium MG MG 40 MG Fenofibrate Fenofibrate No 1{capsu QD Fenofibrat 134 MG 134 MG le_with e 134 MG _a_meal } Creon Creon No Creon [phone] UNIT UNIT UNIT Atorvastati Atorvastati No 1{table QD Atorvastat n Calcium n Calcium t} in Calcium 80 MG 80 MG 80 MG Creon Creon No Creon [phone] UNIT UNIT UNIT Pantoprazol Pantoprazol No 1{table QD Pantoprazo e Sodium 40 e Sodium 40 t} le Sodium MG MG 40 MG Icosapent Icosapent No 2{capsu BID Icosapent Ethyl 1 GM Ethyl 1 GM les_wit Ethyl 1 GM h_meals } Fenofibrate Fenofibrate No 1{capsu QD Fenofibrat 134 MG 134 MG le_with e 134 MG _a_meal } Atorvastati Atorvastati No 1{table QD Atorvastat n Calcium n Calcium t} in Calcium 80 MG 80 MG 80 MG Creon Creon No Creon [phone] UNIT UNIT UNIT Pantoprazol Pantoprazol No 1{table QD Pantoprazo e Sodium 40 e Sodium 40 t} le Sodium MG MG 40 MG Icosapent Icosapent No 2{capsu BID Icosapent Ethyl 1 GM Ethyl 1 GM les_wit Ethyl 1 GM h_meals } Fenofibrate Fenofibrate No 1{capsu QD Fenofibrat 134 MG 134 MG le_with e 134 MG _a_meal } Atorvastati Atorvastati No 1{table QD Atorvastat n Calcium n Calcium t} in Calcium 80 MG 80 MG 80 MG fenofibrate fenofibrate No fenofibrat [facility] Creon Creon No Creon [phone] UNIT UNIT UNIT Pantoprazol Pantoprazol No 1{table QD Pantoprazo e Sodium 40 e Sodium 40 t} le Sodium MG MG 40 MG Icosapent Icosapent No 2{capsu BID Icosapent Ethyl 1 GM Ethyl 1 GM les_wit Ethyl 1 GM h_meals } Fenofibrate Fenofibrate No 1{capsu QD Fenofibrat 134 MG 134 MG le_with e 134 MG _a_meal } Atorvastati Atorvastati No 1{table QD Atorvastat n Calcium n Calcium t} in Calcium 80 MG 80 MG 80 MG Fenofibrate Fenofibrate No 1{capsu QD Fenofibrat 134 MG 134 MG le_with e 134 MG _a_meal } Pantoprazol Pantoprazol No 1{table QD Pantoprazo e Sodium 40 e Sodium 40 t} le Sodium MG MG 40 MG Atorvastati Atorvastati No 1{table QD Atorvastat n Calcium n Calcium t} in Calcium 80 MG 80 MG 80 MG Creon Creon No Creon [phone] UNIT UNIT UNIT Immunizations Ordered Filled Immunization Date Status Comments [facility] e Immunization Name Name Pneumococcal 2019-04-05 Completed [place] o f Polysaccharide, 00:00:00 [place] Med ical PPSV23 (PNEUMOVAX) Branch Pneumococcal 2019-04-05 Completed [place] o f Polysaccharide, 00:00:00 [place] Med ical PPSV23 (PNEUMOVAX) Branch Pneumococcal 2019-04-05 Completed [place] o f Polysaccharide, 00:00:00 [place] Med ical PPSV23 (PNEUMOVAX) Branch Pneumococcal 2019-04-05 Completed [place] o f Polysaccharide, 00:00:00 [place] Med ical PPSV23 (PNEUMOVAX) Branch Pneumococcal 2019-04-05 Completed [place] o f Polysaccharide, 00:00:00 [place] Med ical PPSV23 (PNEUMOVAX) Branch Pneumococcal 2019-04-05 Completed [place] o f Polysaccharide, 00:00:00 [place] Med ical PPSV23 (PNEUMOVAX) Branch Vital Signs Vital Name Observation Time Observation Value Comments Source Systolic blood 2022-11-04 15:00:00 111 [facility] Diastolic blood 2022-11-04 15:00:00 87 mm[Hg] [facility] Heart rate 2022-11-04 15:00:00 75 /min [facility] Respiratory rate 2022-11-04 15:00:00 20 /min [facility] Oxygen saturation in 2022-11-04 15:00:00 94 /min [facility] Arterial blood by [facility] [place] [facility] Pulse oximetry Branch Body temperature 2022-11-04 12:03:00 35.89 [place] [facility] Body weight 2022-11-04 09:06:00 90.946 kg [facility] BMI 2022-11-04 09:06:00 29.61 kg/m2 [facility] Body height 2022-11-03 22:01:00 175.3 cm [facility] height 2022-05-16 14:00:00 69 [in_i] [facility] weight 2022-05-16 14:00:00 205 [lb_av] [facility] bmi 2022-05-16 14:00:00 30.27 kg/m2 [facility] - [facility] Systolic blood 2022-03-29 15:00:00 107 mm[Hg] Univer sity of pressure [facility] Diastolic blood 2022-03-29 15:00:00 65 mm[Hg] Unive rsity of [facility] Heart rate 2022-03-29 15:00:00 68 /min Universi ty of [facility] Respiratory rate 2022-03-29 15:00:00 13 /min Univ ersity of [facility] Oxygen saturation in 2022-03-29 15:00:00 97 /min University of Arterial blood by [facility] [place] [facility] Pulse oximetry Branch Body temperature 2022-03-29 14:36:00 36.28 [place] Univ ersity of [facility] Body weight 2022-03-29 08:34:00 91.989 kg Universi ty of [facility] BMI 2022-03-29 08:34:00 29.95 kg/m2 Universi ty of [facility] Body height 2022-03-28 01:50:00 175.3 cm [facility] [place] [facility] [place] Systolic blood 2022-03-27 14:31:00 131 mm[Hg] Univer sity of [facility] Diastolic blood 2022-03-27 14:31:00 85 mm[Hg] Unive rsity of pressure [facility] Heart rate 2022-03-27 14:31:00 81 /min Universi ty of [facility] Body height 2022-03-27 14:31:00 175.3 cm Universi ty of [facility] Body weight 2022-03-27 14:31:00 92.534 kg [facility] [place] [facility] [place] BMI 2022-03-27 14:31:00 30.13 kg/m2 Universi ty of [facility] Oxygen saturation in 2022-03-27 14:31:00 96 /min University of Arterial blood by [facility] [place] [facility] Pulse oximetry Branch height 2022-01-03 15:00:00 69.00 [in_i] [facility] weight 2022-01-03 15:00:00 203.6 [lb_av] Common [facility] temperature 2022-01-03 15:00:00 98.3 [degF] [facility] bmi 2022-01-03 15:00:00 30.06 kg/m2 [facility] oximetry 2022-01-03 15:00:00 98 % [facility] respiratory rate 2022-01-03 15:00:00 16 /min Comm on [facility] blood pressure 2022-01-03 15:00:00 136 mm[Hg] Common [facility] - systolic [facility] blood pressure 2022-01-03 15:00:00 78 mm[Hg] [facility] - diastolic [facility] height 2021-12-13 09:20:00 69.00 [in_i] [facility] weight 2021-12-13 09:20:00 207.8 [lb_av] [facility] temperature 2021-12-13 09:20:00 97.5 [degF] [facility] bmi 2021-12-13 09:20:00 30.68 kg/m2 [facility] oximetry 2021-12-13 09:20:00 98 % [facility] respiratory rate 2021-12-13 09:20:00 17 /min Comm on [facility] blood pressure 2021-12-13 09:20:00 132 mm[Hg] Common [facility] systolic [facility] blood pressure 2021-12-13 09:20:00 77 mm[Hg] Common [facility] diastolic [facility] Body Weight 2021-02-09 00:00:00 3344 [oz_av] [facility] BP Diastolic 2021-02-09 00:00:00 83 mm[Hg] [facility] BP Systolic 2021-02-09 00:00:00 127 mm[Hg] [facility] Procedures Procedure Date / Time Performing Clinician Source Performed POCT GLUCOSE (AUTOMATED) 2022-11-04 14:31:00 Leon Mann [facility] POCT GLUCOSE (AUTOMATED) 2022-11-04 13:37:00 Leon Mann [place] [facility] POCT GLUCOSE (AUTOMATED) 2022-11-04 13:20:00 Winosme Mannhosh [place] [facility] POCT GLUCOSE (AUTOMATED) 2022-11-04 12:28:00 Leon Mann [place] [facility] POCT GLUCOSE (AUTOMATED) 2022-11-04 12:01:00 Leon Mann [place] [facility] POCT GLUCOSE (AUTOMATED) 2022-11-04 10:28:00 Leon Mann [place] [facility] GLYCOSYLATED HEMOGLOBIN 2022-11-04 10:24:00 Johnathan [facility] (A1C) [facility] Branch TRIGLYCERIDES 2022-11-04 10:23:00 Johnathan [facility] BASIC METABOLIC PANEL 2022-11-04 10:23:00 Johnathan [facility] (NA, K, CL, CO2, GLUCOSE, Medica l Branch BUN, CREATININE, CA) POCT GLUCOSE (AUTOMATED) 2022-11-04 09:40:00 Leon Mann [place] [facility] POCT GLUCOSE (AUTOMATED) 2022-11-04 08:01:00 Leon Mann [place] [facility] POCT GLUCOSE (AUTOMATED) 2022-11-04 06:55:00 Leon Mann [place] [facility] POCT GLUCOSE (AUTOMATED) 2022-11-04 06:05:00 Leon Mann [place] [facility] POCT GLUCOSE (AUTOMATED) 2022-11-04 05:08:00 Leon Mann [place] [facility] CT ABDOMEN PELVIS W 2022-11-04 01:18:30 Manny Anand [facility] CONTRAST Medical Branch LIPASE 2022-11-03 22:38:00 Manny Anand [facility] COMP. METABOLIC PANEL 2022-11-03 22:38:00 Manny Anand [facility] ([id number]) [facility] LIPID PANEL (03050)(TOTAL 2022-11-03 22:38:00 Manny Anand [facility] CHOLESTEROL, [facility] Branch TRIGLYCERIDES, HDL) ETHANOL 2022-11-03 22:38:00 Manny Anand [place] [facility] CBC WITH DIFF 2022-11-03 22:38:00 Manny Anand [facility] URINALYSIS 2022-11-03 22:38:00 Manny Anand [facility] LOW-DENSITY LIPOPROTEIN, 2022-11-03 22:38:00 Manny Anand [facility] DIRECT [facility] URINE DRUG (IMMUNOASSAY) 2022-11-03 22:38:00 Manny Anand [facility] DRUG [facility] nch SCREEN W/O REFLEX CONSENT/REFUSAL FOR 2022-11-03 21:53:03 Doctor Unassigned, [facility] DIAGNOSIS AND TREATMENT [place] [facility] POCT GLUCOSE (AUTOMATED) 2022-03-29 01:28:00 Ninfa Sherman [facility] LIPASE 2022-03-28 15:06:00 Ninfa Sherman [facility] MAGNESIUM 2022-03-28 15:06:00 Ninfa Sherman [facility] BASIC METABOLIC PANEL 2022-03-28 15:06:00 Ninfa Sherman [facility] (NA, K, CL, CO2, GLUCOSE, Medica l Branch BUN, CREATININE, CA) LIPID PANEL (85014)(TOTAL 2022-03-28 15:06:00 Ninfa Sherman [facility] CHOLESTEROL, [facility] TRIGLYCERIDES, HDL) POCT GLUCOSE (AUTOMATED) 2022-03-28 14:12:00 Ninfa Sherman [facility] POCT GLUCOSE (AUTOMATED) 2022-03-28 13:26:00 [facility]UCOSE (AUTOMATED) 2022-03-28 11:59:00 Ninfa Sherman [facility] POCT GLUCOSE (AUTOMATED) 2022-03-28 11:09:00 Ninfa Sherman [facility] POCT GLUCOSE (AUTOMATED) 2022-03-28 10:01:00 Ninfa Sherman [facility] CBC WITH DIFF 2022-03-28 09:05:00 Ninfa Sherman [facility] POCT GLUCOSE (AUTOMATED) 2022-03-28 09:04:00 Ninfa Sherman [facility] POCT GLUCOSE (AUTOMATED) 2022-03-28 07:58:00 Ninfa Sherman [facility] POCT GLUCOSE (AUTOMATED) 2022-03-28 06:53:00 Ninfa Sherman [facility] POCT GLUCOSE (AUTOMATED) 2022-03-28 06:02:00 Ninfa Sherman [facility] POCT GLUCOSE (AUTOMATED) 2022-03-28 04:12:00 Ninfa Sherman [facility] COVID-19 (ID NOW RAPID 2022-03-28 00:53:00 Lam Navarro [facility] TESTING) Medical Branch LAB ONLY COVID 2022-03-28 00:53:00 Lam Navarro [facility] CT ABDOMEN PELVIS W 2022-03-27 22:21:13 Lam Navarro [facility] CONTRAST Medical Branch AMYLASE 2022-03-27 20:18:00 Lam Navarro [facility] LIPASE 2022-03-27 20:18:00 Lam Navarro [facility] COMP. METABOLIC PANEL 2022-03-27 20:18:00 Lam Navarro [facility] ([id number]) Medical Branch LIPID PANEL (29955)(TOTAL 2022-03-27 20:18:00 Marito Pinzon [facility] CHOLESTEROL, [facility] TRIGLYCERIDES, HDL) CBC WITH DIFF 2022-03-27 20:18:00 Lam Navarro [facility] URINALYSIS 2022-03-27 20:18:00 Lam Navarro [facility] LOW-DENSITY LIPOPROTEIN, 2022-03-27 20:18:00 Marito Pinzon [facility] [place] CONSENT/REFUSAL FOR 2022-03-27 19:44:35 Doctor Unassigned, [facility] DIAGNOSIS AND TREATMENT [place] [facility] POCT HEMOGLOBIN A1C TEST 2022-03-27 14:56:00 HenryVicky Dixie [facility] REFERRAL- 2022-03-19 05:01:00 Doctor Unassalaina, [facility] REQUEST/RESPONSE [place] [facility] [place] Plan of Care Planned Activity Planned Date Details Comments Source Instructions Edis ramsey Group Encounters Start End Encounter Admission Attending Care Care Encounter Source Date/Time Date/Time Type Type Clinicians Facility Department ID 2022-11-01 Outpatient King, STLMLC STLMLC [id number] Common 11:26:01 Osvaldo [facility] 2022-09-04 Outpatient King, STLMLC STLMLC [id number] Common 08:18:00 Osvaldo [address] [facility] 2022-03-19 Outpatient King, STLMLC STLMLC [id number] Common 12:21:01 Osvaldo [facility] 2022-03-01 Outpatient King, STLMLC STLMLC [id number] Common 14:06:03 Osvaldo [facility] 2022-01-04 Outpatient King, STLMLC STLMLC [id number] Common 15:05:02 Osvaldo [facility] 2022-01-03 Outpatient King, STLMLC STLMLC [id number] Common 11:07:02 Osvaldo [facility] 2021-12-28 Outpatient King, STLMLC STLMLC [id number] Common 13:01:02 Avnee [facility] 2021-12-25 Outpatient King, STLMLC STLMLC [id number] Common 16:52:01 Avnee [facility] 2021-12-19 Outpatient King, STLMLC STLMLC [id number] Common 12:00:04 Avnee [facility] 2021-12-13 Outpatient King, STLMLC STLMLC [id number] Common 08:21:02 Avnee [facility] - [facility] 2021-05-22 Emergency [facility] [id number] Univers 16:16:24 ity of [facility] 2021-05-20 Emergency [facility] [id number] Univers 13:03:51 ity of [facility] 2021-05-20 Emergency [facility] [id number] Univers 01:22:26 ity of [facility] 2021-05-18 Emergency [facility] [id number] Univers 20:47:26 ity of [facility] 2021-05-18 Emergency [facility] [id number] Univers 14:22:20 ity of [facility] 2021-05-18 Emergency [facility] [id number] Univers 13:55:04 ity of [facility] 2022-11-06 2022-11-06 Transition PELON Carlin 1.2.840.114 [id number] Univers 00:00:00 00:00:00 of Care Celina MOSHER 350.1.13.10 i ty of [place] 4.2.7.2.686 [facility] [id number] [facility] 403 Branch 2022-11-03 2022-11-04 Inpatient X JOHNATHAN [facility] [id number] Univers 17:02:00 11:57:00 LEON nash o f [facility] 2022-11-03 2022-11-04 [facility] Manny Anand [facility] 1.2.840.1 [id number] Univers 17:02:00 11:57:00 Encounter Leon Mann [id number] ity of Ifeoma Espinoza 4.2.7.2.686 [facility] [id number] [facility] 080 Branch 2022-09-25 2022-09-25 Outpatient Chelsea FIGUEROA [facility] [id number] Univers 14:00:00 14:00:00 VICKY ity of [facility] 2022-05-16 2022-05-16 OFFICE STLMLC STLMLC [id number] Co mmon 00:00:00 00:00:00 VISIT EST Spir it PT LEVEL 3 - [facility] 2022-05-07 2022-05-07 (TEL) STLMLC STLC [id number] Co mmon 00:00:00 00:00:00 Spirit - [facility] 2022-03-30 2022-03-30 Transition PELON Garcia 1.2.840.114 [id number] Univers 00:00:00 00:00:00 of Care Daphnie MOSHER 350.1.13.10 ity of [place] [id number] [facility] 403 Branch 2022-03-27 2022-03-29 [facility] JULIO CESAR [id number] Univers 14:42:00 11:08:00 [facility] 2022-03-27 2022-03-29 Hospital Lam Navarro [facility] 1.2.840.11 [id number] Univers 14:42:00 11:08:00 Encounter Ninfa Sherman 350.1.13. 10 ity of Marito Pinzon 4.2.7.2.686 [facility] [id number] [facility] 080 Branch 2022-03-27 2022-03-27 Emergency X DION [facility] ERT [id number] Univers 14:42:00 14:42:00 [facility] 2022-03-27 2022-03-27 [facility] [id number] Univers 09:30:00 10:22:22 [facility] 2022-03-27 2022-03-27 Office [facility] 1.2.840.114 [id number] Univers 09:30:00 10:22:22 Visit [facility] 350.1.13.10 it y of [place] 4.2.7.2.686 Gopal as JUSTIN?BLEA [id number] Mn melanie ORTIZ [address] [place] [address] MEDICAL OFFICE BUILDING 2022-03-20 2022-03-20 [facility] [id number] Univers 14:00:00 14:00:00 [facility] 2022-03-19 2022-03-19 Orders Doctor RIP 1.2.840.114 [id number] Univers 00:00:00 00:00:00 Only Unassigned, REJI 350.1.13.10 ity of [place] [facility] 4.2.7.2.686 Gopal as [phone] [facility] 009 Branch 2022-03-09 2022-03-09 (TEL) STLMLC STLMLC [id number] Co mmon 00:00:00 00:00:00 [facility] 2022-03-08 2022-03-08 OFFICE STLMLC STLMLC [id number] Co mmon 00:00:00 00:00:00 VISIT EST Spir it PT LEVEL 3 [facility] 2022-02-01 2022-02-01 Outpatient R JOHNATHAN WALKER [facility] 1 [id number] Univers 14:00:00 14:00:00 JOHNATHAN WALKER [facility] 2022-01-23 2022-01-23 OFFICE STLMLC STLMLC [id number] Co mmon 00:00:00 00:00:00 VISIT EST Spir it PT LEVEL 3 [facility] 2022-01-16 2022-01-16 Outpatient R PATRICIA [facility] [id number] Univers 16:06:47 23:59:00 NOVA ity [facility] 2022-01-16 2022-01-16 [facility] 1.2.840.114 [id number] Univers 16:06:47 23:59:00 Encounter Nova LARA 350.1.13.10 ity of [place] 4.2.7.2.686 [facility] [id number] [facility] 801 Branch 2022-01-16 2022-01-16 Orders Doctor RIP 1.2.840.114 [id number] Univers 00:00:00 00:00:00 Only Unassigned, REJI 350.1.13.10 it[place] of [place] [facility] 4.2.7.2.686 Gopal as [id number] [facility] 009 Branch 2022-01-05 2022-01-05 (TEL) STLMLC STLMLC [id number] Co mmon 00:00:00 00:00:00 [facility] 2022-01-04 2022-01-04 (TEL) STLMLC STLMLC [id number] Co mmon 00:00:00 00:00:00 [facility] 2022-01-03 2022-01-03 OFFICE STLMLC STLMLC [id number] Co mmon 00:00:00 00:00:00 VISIT EST Spir it PT LEVEL 3 - [facility] 2022-01-03 2022-01-03 (TEL) STLMLC STLMLC [id number] Co mmon 00:00:00 00:00:00 [facility] 2021-12-21 2021-12-21 (TEL) STLMLC STLMLC [id number] Co mmon 00:00:00 00:00:00 [facility] 2021-12-15 2021-12-15 (TEL) STLMLC STLMLC [id number] Co mmon 00:00:00 00:00:00 [facility] 2021-12-14 2021-12-14 (TEL) STLMLC STLMLC [id number] Co mmon 00:00:00 00:00:00 [facility] 2021-12-13 2021-12-13 OFFICE STLMLC STLMLC [id number] Co mmon 00:00:00 00:00:00 VISIT NEW Spir it PT LEVEL 4 - [facility] 2021-12-08 2021-12-08 [facility] 1.2.840.114 [id number] Univers 00:00:00 00:00:00 ise, SPECIAL[facility].1.13.10 [facility] 4.2.7.2.686 [facility] AT [phone] [address] 2021-12-07 2021-12-07 Outpatient Chelsea BEAUCHAMP [facility] [id number] Univers 16:30:00 16:30:00 LITO nash [facility] 2021-12-07 2021-12-07 Transition PELON Carlin 1.2.840.114 [id number] Univers 00:00:00 00:00:00 of Care Celina GARCIAY 350.1.13.10 i ty of [place] [id number] [facility] 403 Branch 2021-12-04 2021-12-06 [facility] Alice Ballesteros [facility] 1.2.840. 114 [id number] Univers 18:19:00 12:34:00 Encounter Israel Cantu 350.1.13.10 ity of Marito Pinzon [facility] 4.2.7.2.686 [facility] [id number] [facility] 080 Branch 2021-11-22 2021-11-22 Telephone [facility] 1.2.840.114 [id number] Univers 00:00:00 00:00:00 Yvrose LARA 350.1.13.10 i ty of [facility] 4..7.2.[place] [phone] [address] 2021-11-21 2021-11-21 Outpatient R [facility] [id number] Univers 13:00:00 13:00:00 YVROSE nash of [facility] 2021-11-16 2021-11-16 Telephone [facility] 1.2.840.114 [id number] Univers 00:00:00 00:00:00 Yvrose LARA 350.1.13.10 i ty of [place] [phone] Mn dicoh NAL [address] [place] [address] 2021-11-09 2021-11-09 Telephone [facility] 1.2.840.114 [id number] Univers 00:00:00 00:00:00 Merced LARA 350.1.13.10 ity of [place] [phone] Mn dical NAL [address] [place] [address] 2021-11-09 2021-11-09 Telephone [facility] 1.2.840.114 [id number] Univers 00:00:00 00:00:00 Merced LARA 350.1.13.10 ity of [place] 4.2.7.2.[place] [phone] Mn dical NAL 044 [facility] 2021-11-07 2021-11-07 Outpatient R SHAY DISLAADRIANA [facility] [id number] Univers 08:30:00 09:06:20 FAN [facility]ac[facility]Bela [facility] 2021-11-07 2021-11-07 Office Nils [facility] 1.2.840.114 [id number] Univers 08:30:00 09:06:20 Visit Merced LARA 350.1.13.10 ity of [facility] 4.2.7.2.686 [place] [id number] Mn dicoh NAL 044 [facility] 2021-11-06 2021-11-06 Transition Jose ROBERTCheri 1.2.840.114 [id number] Univers 00:00:00 00:00:00 of Care Daphnie MOSHER 350.1.13.10 ity of [place].2.[place] [id number] [facility] 403 Branch 2021-11-02 2021-11-03 Inpatient X JEF [facility] [id number] Univers 01:58:00 12:36:00 [facility] 2021-11-02 2021-11-03 Hospital Navarro Lam [facility] 1.2.840.11 [id number] Univers 01:58:00 12:36:00 Encounter Akila Amaya S JANE 350.1.13.1 0 ity of Case FuchsDANYELLE 4.2.7.2.686 [facility] [id number] [facility] 080 Branch 2021-08-16 2021-08-16 Outpatient R MARIA L [facility] [id number] Univers 16:00:00 16:00:00 [facility] 2021-06-27 2021-06-27 Outpatient R ROMULO [facility] [id number] Univers 15:00:00 15:00:00 ORLIN ity of [facility] 2021-06-08 2021-06-08 Orders Doctor RIP 1.2.840.114 [id number] Univers 00:00:00 00:00:00 Only Unassigned, REJI 350.1.13.10 ity of [place] [facility] 4.2.7.2.686 Gopal as [id number] [facility] 009 [place] 2021-05-12 2021-05-12 [facility] 1.2.840.114 [id number] Univers 10:00:00 23:59:00 Encounter Yvrose Lara 350.1.13.10 ity of [place].2.[place] [phone] [facility] 801 [place] 2021-05-12 2021-05-12 Outpatient R [facility] [id number] Univers 00:00:00 00:00:00 YVROSE nash [facility] 2021-05-11 2021-05-11 Warp Clamper 2, Adc Lab [facility] 1.2.840.114 [id number] Univers 16:05:35 16:20:35 Visit Yrvose Lisa 350.1.13.10 ity of [place].2.[place] [phone] Mn dical nal 353 [facility] 2021-05-11 2021-05-11 Outpatient R [facility] [id number] Univers 15:00:00 16:05:47 YVROSE nash [facility] 2021-05-11 2021-05-11 Office [facility] 1.2.840.114 [id number] Univers 14:48:22 16:05:47 Visit Yvrose LARA 350.1.13.10 i ty of [place] 4.2.7.2.[place] [phone] Mn dical NAL 044 [facility] 2021-05-08 2021-05-08 Telephone [facility] 1.2.840.114 [id number] Univers 00:00:00 00:00:00 Yvrose Lara 350.1.13.10 i ty of [place].7.2.[place] [phone] Mn dical nal 044 [facility] 2021-04-27 2021-04-27 [facility] 1.2.840.114 [id number] Univers 16:51:04 23:59:00 Encounter Yvrose Lara 350.1.13.10 ity of [place] 4.2.7.2.686 [place] [phone] [address] 2021-04-27 2021-04-27 [facility] [id number] Univers 09:40:00 09:40:00 YVROSE nash [facility] 2021-04-27 2021-04-27 [facility] 1.2.840.114 [id number] [facility] 08:13:23 08:33:23 ne Visit Yvrose Lara 350.1.13.10 ity [facility] 4.2.7.2.686 [place] [phone] Mn dical nal 044 [facility] 2021-04-25 2021-04-25 Outpatient R [facility] [id number] Univers 00:00:00 00:00:00 YVROSE saad [facility] 2021-04-19 2021-04-19 Warp Clamper Misty, [facility] Lab Main [facility] 1.2.8 40.114 [id number] Univers 12:17:42 12:32:42 Visit Yvrose Lisa 350.1.13.10 ity [facility] 4.2.7.2.[place] [phone] Mn dical nal 353 [facility] 2021-04-19 2021-04-19 [facility] 1.2.840.114 [id number] Univers 08:21:57 10:35:17 ne Visit Yvrose Lara 350.1.13.10 ity of [place] 4.2.7.2.[place] [id number] Mn dical nal 044 [facility] 2021-04-19 2021-04-19 Outpatient R [facility] [id number] Univers 08:00:00 08:00:00 YVROSE nash [facility] 2021-04-19 2021-04-19 Telephone Maria [facility] 1.2.840.114 [id number] [facility] 00:00:00 00:00:00 [facility] 350.1.13.10 it y of [place] 4.2.7.2.686 Gopal as Justin?Blea [id number] Mn dical [address] Medical Office Building 2021-03-07 2021-03-07 Emergency [facility] 1.2.840.114 [id number] [facility] 18:09:00 18:10:00 Charlie Lara 350.1.13.10 ity of [place] 4.2.7.2.686 [place] [phone] [address] 2021-02-09 2021-02-09 Terrie Norman_Clifford [facility] [place] [facility] [id number] 21 [place] 00:00:00 00:00:00 Jeanmaria alejandra Randall 0722 félix Norman [facility] Medical COOKING SHOW HOST: [address], [place] [address] , Ph. 2020-10-06 2020-10-06 Patient [facility] 1.2.840.114 [id number] Univers 00:00:00 00:00:00 [facility] 350.1.13.10 i ty of [facility] 4.2.7.2.686 [place] [id number] Mn sanchez[address] 2020-07-27 2020-07-27 Outpatient [facility] [id number] [facility] 13:20:00 13:20:00 YVROSE nash [facility] 2020-07-13 2020-07-13 Emergency [facility] 1.2.982.195 [id number] [facility] 17:28:00 18:56:00 Samaria Lara 350.1.13.10 i ty of [place] 4.2.7.2.686 [place] [phone] [address] 2020-06-01 2020-06-01 Outpatient R [facility] [id number] Univers 18:00:00 18:00:00 ity of [facility] 2020-05-18 2020-05-18 Office Shameka [facility] 1.2.840.114 [id number] Univers 12:41:47 13:11:47 Visit [facility] 350.1.13.10 it y of Nic Lara 4.2.7.2.686 Gopal as Professio [phone] [facility] 044 [place] Office [facility] 2020-05-18 2020-05-18 Outpatient R SHAMEKA [facility] [id number] Univers 13:00:00 13:00:00 IRENA ity [facility] 2020-05-17 2020-05-17 Emergency X Whitney BARKER [facility] ERT [id number] Univers 14:10:00 17:08:00 ity of [facility] 2020-05-17 2020-05-17 Emergency Whitney Barker [facility] 1.2.840.114 [id number] Univers 14:10:00 17:08:00 Tamika [place] 350.1.13.10 i ty of [place] 4.2.7.2.686 [place] [id number] [address] 2020-05-17 2020-05-17 Urgent Provider, [facility] 1.2.840.114 [id number] Univers 12:44:42 13:55:10 Care Sydney [facility] 350.1.13.10 ity of [place] 4.2.7.2.686 Gopal as Professio [phone] [facility] 044 [place] Office [facility] 2020-05-17 2020-05-17 Outpatient R [facility] [id number] Univers 13:20:00 13:20:00 ity of [facility] 2020-05-17 2020-05-17 Outpatient R [facility] [id number] Univers 13:20:00 13:20:00 ity of [facility] 2020-05-10 2020-05-10 [facility] [id number] Univers 10:30:00 10:30:00 [facility] 2020-05-09 2020-05-09 Telephone Maria L [facility] 1.2.840.114 [id number] Univers 00:00:00 00:00:00 Yvrose Lara 350.1.13.10 i ty of [place] 4.[place].7.2.[place] [phone] Mn dical nal 044 [facility] 2020-05-09 2020-05-09 Telephone [facility] 1.2.039.424 [id number] Univers 00:00:00 00:00:00 James BERMUDEZ 350.1.13.10 ity A[place].2.7.2.686 [place] [phone] [facility] AND [address] [facility] 2020-04-28 2020-04-28 Outpatient R TERE [facility] [id number] Univers 11:00:00 11:00:00 SENDIL ity [facility] 2020-04-28 2020-04-28 Telephone [facility] 1.2.005.606 [id number] Univers 00:00:00 00:00:00 Sendil Sam Lara 350.1.13.10 ity [place] 4.2.7.2.[place] [phone] Mn dical nal 059 [facility] 2020-04-25 2020-04-25 Outpatient R [facility] [id number] Univers 10:15:00 10:15:00 ity of [facility] 2020-04-25 2020-04-25 Warp Clamper 2, Adc Lab [facility] 1.2.840.114 [id number] Univers 09:48:38 10:03:38 Visit Yvrose Lisa 350.1.13.10 ity [place] 4.2.[place].2.686 [place] [phone] Mn dical nal 353 [facility] 2020-04-22 2020-04-22 Outpatient R MARIA L [facility] [id number] Univers 09:00:00 09:00:00 YVROSE itchriss [facility] 2020-04-22 2020-04-22 Telemedici Maria [facility] 1.2.840.114 [id number] Univers 08:14:42 08:34:42 ne Visit Yvrose Lara 350.1.13.10 ity of [place] 4.[place].2.[place] [phone] [address] 2020-02-04 2020-02-04 Telephone [facility] 1.2.840.114 [id number] Univers 00:00:00 00:00:00 Yvrose Lara 350.1.13.10 i ty of [place] 4.[place].2.[place] [phone] [address] 2020-02-03 2020-02-03 Outpatient R [facility] [id number] Univers 07:49:33 23:59:00 YVROSE nash [facility] 2020-02-03 2020-02-03 [facility] 1.2.840.114 [id number] Univers 07:49:00 23:59:00 Encounter Yvrose Lara [id number] [id number] [phone] [address] 2020-02-03 2020-02-03 Outpatient R [facility] [id number] Univers 00:00:00 00:00:00 YVROSE nash [facility] 2020-01-21 2020-01-21 [facility] [id number] Univers 12:13:59 12:43:38 Visit Yvrose Lara [id number] [id number] [phone] [address] 2020-01-21 2020-01-21 Outpatient R [facility] [id number] Univers 12:40:00 12:40:00 YVROSE nash [facility] 2019-12-23 2019-12-29 Laboratory Pc, Adc Echo Room 1 - [facility] 1 .2.840.114 [id number] Univers 14:51:12 08:06:18 Only Grisel Arguelles [id number] [id number] [phone] Mn dical nal [address] 2019-12-23 2019-12-23 Outpatient R [facility] [id number] Univers 15:00:00 15:00:00 ity of [facility] 2019-12-22 2019-12-22 [facility] [facility] [id number] Univers 09:30:00 09:30:00 SENDIL ity of [facility] 2019-12-11 2019-12-11 Telephone [facility] 1.2.840.114 [id number] Univers 00:00:00 00:00:00 [facility] [id number] it y of [place] 4.2.7.2.686 [facility] Professio [phone] [address] Office Building One 2019-12-01 2019-12-02 Emergency X GUIDO [facility] ERT [id number] Univers 21:07:33 00:17:00 NIKOS ity [facility] 2019-12-01 2019-12-02 [facility] [id number] Univers 21:07:33 00:17:00 Nikos Lara 350.1.13.10 i ty of [place] 4.2.7.2.686 [facility] [phone] [facility] 084 Branch 2019-10-09 2019-11-19 [facility]ici [facility] 1.2.840.114 [id number] Univers 09:01:20 10:45:42 ne Visit Yvrose Lara 350.1.13.10 ity of [place] 4.2.7.2.68[facility] Professio [phone] Mn dical nal [address] [facility] 2019-10-29 2019-10-29 Telephone [facility] 1.2.840.114 [id number] Univers 00:00:00 00:00:00 [facility] 350.1.13.10 ity of [place] 4.2.7.2.686 [facility] [phone] [facility] Primary & 059 Branch Specialty Care 2019-10-26 2019-10-26 Telephone [facility] [id number] Univers 00:00:00 00:00:00 James BERMUDEZ 350.1.13.10 ity [place] [phone] [facility] AND CRUZ 011 Branch DIABETES CLINIC 2019-10-22 2019-10-22 Refseven [facility] 1.2.840.114 [id number] Univers 00:00:00 00:00:00 Yvrose Lara 350.1.13.10 [place] ty [place] [phone] Mn dical formerly [facility] 044 [facility] 2019-10-22 2019-10-22 Refill Sapna Lisa 1.2.840.114 [id number] Univers 00:00:00 00:00:00 Yvrose Robles 350.1.13.10 it y of [facility] 4.2.7.2.686 Gopal as [phone] [facility] 092 Branch 2019-10-16 2019-10-16 Telephone [facility] [id number] Univers 00:00:00 00:00:00 James BERMUDEZ 350.1.13.10 ity [place] [phone] [facility] [address] DIABETES CLINIC 2019-10-14 2019-10-14 [facility] [id number] Univers 09:00:00 09:00:00 JAMES ity [facility] 2019-10-14 2019-10-14 Telemedici [facility] 1.2.840.114 [id number] Univers 08:08:41 08:38:41 ne Visit James BERMUDEZ 350.1.13.10 ity [place] [phone] [facility] [address] DIABETES CLINIC 2019-10-14 2019-10-14 Telephone [facility] [id number] Univers 00:00:00 00:00:00 James KNOTTPEC 350.1.13.10 ity [place] [phone] [facility] [place] [address] Branch DIABETES CLINIC 2019-10-09 2019-10-09 Outpatient R SONYACHARANDELMA [facility] [id number] Univers 09:20:00 09:20:00 PETER ity of [facility] 2019-10-06 2019-10-06 Transition [place] 1.2.840.114 [id number] Univers 00:00:00 00:00:00 of Care Celina Mosher 350.1.13.10 it y of [place].2.[place] [phone] [facility] 403 Branch 2019-10-03 2019-10-05 Outpatient X KOLBY [facility] [id number] Univers 09:42:25 15:24:00 JESSICA shepherdy o f [facility] 2019-10-03 2019-10-05 Emergency Daphnie Zhou 1 .2.840.114 [id number] Univers 09:42:25 15:24:00 Jessica Garner 350.1.13.10 ity of [facility] 4.2.7.2.686 Gopal as [phone] [facility] 0[address] Branch 2019-09-30 2019-09-30 Emergency Whitney Barker [facility] 1.2.840.114 [id number] Univers 16:49:23 18:17:00 Tamika Lara 350.1.13.10 i ty of [place].2.[place] [phone] [facility] 084 Branch 2019-09-30 2019-09-30 Orders Doctor RIP 1.2.840.114 [id number] Univers 00:00:00 00:00:00 Only Unassigned, REJI 350.1.13.10 ity of [place] [facility] 4.2.7.2.686 Gopal as [phone] [facility] 009 Branch 2019-04-08 2019-04-08 Telephone Evin [facility] 1.2.840.114 [id number] Univers 00:00:00 00:00:00 Katya Lara 350.1.13.10 i ty of [place] [phone] Mn dical nal [address] Building 2019 2019 Transition [place] 1.2.840.114 [id number] Univers 00:00:00 00:00:00 of Care Daphnie Mosher 350.1.13.10 ity of [place] [phone] [facility] 403 Branch 2019-04-01 2019-04-05 [facility] Akila Amaya [facility] 1.2.840. 114 [id number] [facility] 04:01:42 11:59:00 Encounter Shaan Hassan 350.1.13.10 ity of [place] 4.2.7.2.686 [facility] [phone] [facility] [address] Results Test Description Test Time Test Comments Results Result Comments Source LOW-DENSITY LIPOPROTEIN, DIRECT 2022-11-04 16:56:14 Test Item Value Reference Range Interpretation Comme nts dLDL Chol (test code = 52683-3) 61 mg/dL <=130 Lab Interpretation (test code = 67090-2) Normal [facility] GLUCOSE (AUTOMATED)2022-11-04 14:32:40 Test Item Value Reference Range Interpretation Comments POCT GLU (test code = 8468517444) 95 mg/dL 70-110 Lab Interpretation (test code = Normal 09862-6) [facility] GLUCOSE (AUTOMATED)2022-11-04 13:38:56 Test Item Value Reference Range Interpretation Comments POCT GLU (test code = 7885704144) 121 mg/dL 70-110 H Lab Interpretation (test code = Abnormal 12084-1) [facility] GLUCOSE (AUTOMATED)2022-11-04 13:22:32 Test Item Value Reference Range Interpretation Comments POCT GLU (test code = 4805095645) 67 mg/dL 70-110 L Lab Interpretation (test code = Abnormal 42089-8) [facility] GLUCOSE (AUTOMATED)2022-11-04 12:29:17 Test Item Value Reference Range Interpretation Comments POCT GLU (test code = 7944705018) 174 mg/dL 70-110 H Lab Interpretation (test code = Abnormal 62851-1) [facility] GLUCOSE (AUTOMATED)2022-11-04 12:03:42 Test Item Value Reference Range Interpretation Comments POCT GLU (test code = 8512007999) 59 mg/dL 70-110 L Lab Interpretation (test code = Abnormal 82311-6) [facility] GLUCOSE (AUTOMATED)2022-11-04 10:30:11 Test Item Value Reference Range Interpretation Comments POCT GLU (test code = 7619714015) 69 mg/dL 70-110 L Lab Interpretation (test code = Abnormal 37690-8) [facility] GLUCOSE (AUTOMATED)2022-11-04 09:41:51 Test Item Value Reference Range Interpretation Comments POCT GLU (test code = 4968937534) 105 mg/dL 70-110 Lab Interpretation (test code = Normal 41284-8) [facility] GLUCOSE (AUTOMATED)2022-11-04 08:02:21 Test Item Value Reference Range Interpretation Comments POCT GLU (test code = 2736620711) 56 mg/dL 70-110 L Lab Interpretation (test code = Abnormal 22466-7) [facility] GLUCOSE (AUTOMATED)2022-11-04 06:56:54 Test Item Value Reference Range Interpretation Comments POCT GLU (test code = 0757868004) 84 mg/dL 70-110 Lab Interpretation (test code = Normal 72947-9) [facility] GLUCOSE (AUTOMATED)2022-11-04 06:06:41 Test Item Value Reference Range Interpretation Comments POCT GLU (test code = 5262624594) 123 mg/dL 70-110 H Lab Interpretation (test code = Abnormal 10581-8) [facility] GLUCOSE (AUTOMATED)2022-11-04 05:09:45 Test Item Value Reference Range Interpretation Comments POCT GLU (test code = 5126896127) 92 mg/dL 70-110 Lab Interpretation (test code = Normal 10350-1) [facility]10)(TOTAL CHOLESTEROL, TRIGLYCERIDES, HDL)2022-11-04 04:00:19 Test Item Value Reference Range Interpretation Comments CHOL (test code = 296 mg/dL 120-200 H 8643116546) HDL (test code = 27 mg/dL >=40 L 2166570833) HDLC RATIO (test code = 11.0 <=5.0 H 3173396356) TRIG (test code = 1526 mg/dL 30-170 H 4300968766) LDL CHOL (test code = Unable to calculate 72466-7) LDL due to elev ated triglyceride le daniele greater than 40 0 mg/dL. VLDL (test code = Unable to calculate 1661862802) VLDL due to asha vated triglyceride le daniele greater than 71 0 mg/dL. Lab Interpretation Abnormal (test code = 80556-8) [facility] 23:23:05 ALCOHOL<10mg/dL11/03/2022 6:23 PM [facility]<10 Axjvzqav85-755 Toxic>100 Depression of RADIO OFFICER>400 [facility]ABOLIC PANEL (06003) 2022-11-03 23:17:48 Test Item Value Reference Range Interpretation Comments NA (test code = 140 mmol/L 135-145 0987100501) K (test code = 4.4 mmol/L 3.5-5.0 0091139152) CL (test code = 106 mmol/L 98-108 6791430527) CO2 TOTAL (test code = 23 mmol/L 23-31 4612376274) AGAP (test code = 11 2-16 5679804655) BUN (test code = 13 mg/dL 7-23 8724182182) GLUCOSE (test code = 118 mg/dL 70-110 H 0578492489) CREATININE (test code = 0.65 mg/dL 0.60-1.25 6931607306) TOTAL BILI (test code = 0.9 mg/dL 0.1-1.4 1220326661) CALCIUM (test code = 9.4 mg/dL 8.6-10.6 0347884795) T PROTEIN (test code = 7.6 g/dL 6.3-8.2 0628723212) ALBUMIN (test code = 4.4 g/dL 3.5-5.0 6271980102) ALK PHOS (test code = 92 U/L 34-122 6543442394) ALTv (test code = 30 U/L 5-50 1742-6) AST(SGOT) (test code = 26 U/L 13-40 7392995047) eGFR (test code = 134.1 mL/min/1.73m2 2037633817) ALIREZA (test code = ALIREZA) Association of Glomerular Filtration Rate (GFR) and Staging of Kidney Disease* + --+ --+ ------+| GFR (mL/min/1.73 m2) ?| With Kidney Damage ?| ?Without Kidney Damage+ --------+ --------+ +| ?>90 ?| ?Stage one ?| ? Normal ?+ ---+ ---+ -------+| ?60-89 ?| ?Stage two ?| ? Decreased GFR ? + --+ --+ ------+| ?30-59 ?| ?Stage three ?| ? Stage three ? + --+ --+ ------+| ?15-29 ?| ?Stage four ? | ? Stage four ?+ ---+ ---+ -------+| ?<15 (or dialysis) ? ?| ?Stage five ? | ? Stage five ?+ ---+ ---+ -------+ *Each stage assumes the associated GFR level has been in effect for at least three months. ?Stages 1 to 5, with or without kidney disease, indicate chronic kidney disease. Notes: Determination of stages one and two (with eGFR >59mL/min/1.73 m2) requires estimation of kidney damage for at least three months as defined by structural or functional abnormalities of the kidney, manifested by either:Pathological abnormalities or Markers of kidney damage (including abnormalities in the composition of the blood or urine or abnormalities in imaging tests). Lab Interpretation Abnormal (test code = 06319-6) [facility] 23:17:28 Test Item Value Reference Range Interpretation Comments LIPASE (test code = 8834141971) 176 U/L 0-220 Lab Interpretation (test code = Normal 19598-0) [facility] WITH [id number] 22:53:24 Test Item Value Reference Range Interpretation Comments WBC (test code = 10.57 See_Comment [Automated 7562-2) message] The sy stem which generated this result transmitted reference range : 4.20 - 10.70 10*3/?L. The reference range was not used to interpret this result as normal/abnormal . RBC (test code = 4.75 See_Comment [Automated 069-1) message] The sy stem which generated this result transmitted reference range : 4.26 - 5.52 10*6/?L. The reference range was not used to interpret this result as normal/abnormal . HGB (test code = 15.5 g/dL 12.2-16.4 718-7) HCT (test code = 44.5 % 38.4-49.3 4544-3) MCV (test code = 93.7 fL 81.7-95.6 787-2) MCH (test code = 32.6 pg 26.1-32.7 785-6) MCHC (test code = 34.8 g/dL 31.2-35.0 786-4) RDW-SD (test code = 45.3 fL 38.5-51.6 24391-5) RDW-CV (test code = 13.2 % 12.1-15.4 788-0) PLT (test code = 290 See_Comment [Automated 777-3) message] The sy stem which generated this result transmitted reference range : 150 - 328 10*3/ ?L. The reference r kelvin was not used to interpret this result as normal/abnormal . MPV (test code = 9.9 fL 9.8-13.0 35620-9) NRBC/100 WBC (test 0.0 See_Comment [Automat ed code = 8391705468) message] The system which generated this result transmitted reference range : 0.0 - 10.0 /100 WBCs. The refer ence range was not u sed to interpret th is result as normal/abnormal . NRBC x10^3 (test code See_Comment [Auto mated = 8561480987) message] The s ystem which generated this result transmitted reference range : 10*3/?L. The reference range was not used to interpret this result as normal/abnormal . GRAN MAT (NEUT) % 59.9 % (test code = 770-8) IMM GRAN % (test code 0.90 % = 9612773178) LYMPH % (test code = 29.6 % 736-9) MONO % (test code = 6.1 % 5905-5) EOS % (test code = 3.0 % 713-8) BASO % (test code = 0.5 % 706-2) GRAN MAT x10^3(ANC) 6.33 10*3/uL 1.99-6.95 (test code = 5542596219) IMM GRAN x10^3 (test 0.09 10*3/uL 0.00-0.06 H code = 1130937168) LYMPH x10^3 (test code 3.13 10*3/uL 1.09-3.23 = 731-0) MONO x10^3 (test code 0.65 10*3/uL 0.36-1.02 = 742-7) EOS x10^3 (test code = 0.32 10*3/uL 0.06-0.53 711-2) BASO x10^3 (test code 0.05 10*3/uL 0.01-0.09 = 704-7) Lab Interpretation Abnormal (test code = 25388-0) [facility]2022-03-29 01:44:51 Test Item Value Reference Range Interpretation Comments POCT GLU (test code = 4468620844) 127 mg/dL 70-110 H Lab Interpretation (test code = Abnormal 74939-9) [facility] PAN[facility] (68871)(TOTAL CHOLESTEROL, TRIGLYCERIDES, HDL)2022-03-28 15:24:23 Test Item Value Reference Range Interpretation Comments CHOL (test code = 257 mg/dL 120-200 H 7936866353) HDL (test code = 30 mg/dL See_Comment L [Automated message] 2330421198) The system Ping4 generated this result transmit kami reference range : >=40. The refer ence range was not u sed to interpret th is result as normal/abnormal . HDLC RATIO (test code = See_Comment H [Au tomated message] 6370750190) The system Ping[employer] generated this result transmit kami reference range : <=5.0. The refe rence range was not u sed to interpret th is result as normal/abnormal . TRIG (test code = 393 mg/dL 30-170 H 4346853799) LDL CHOL (test code = 148 mg/dL See_Comment [Auto mated message] 18079-4) The system Ping[employer] generated this result transmit kami reference range : <=160. The refe rence range was not u sed to interpret th is result as normal/abnormal . VLDL (test code = 79 mg/dL 5-60 H 7042538436) Lab Interpretation (test Abnormal code = 57084-7) [facility] HospitalMagnesium [id number] 15:24:03 Test Item Value Reference Range Interpretation Comments MAGNESIUM (test code = 4378864132) 1.7 mg/dL 1.7-2.4 Lab Interpretation (test code = Normal 01924-5) [facility] (NA, K, CL, CO2, GLUCOSE, BUN, CREATININE, CA)2022-03-28 15:24:03 Test Item Value Reference Range Interpretation Comments NA (test code = 139 mmol/L 135-145 0758206444) K (test code = 4.4 mmol/L 3.5-5 4010025576) CL (test code = 108 mmol/L 98-108 0744761211) CO2 TOTAL (test code = 24 mmol/L 23-31 5386623658) AGAP (test code = 2-16 3999257921) BUN (test code = 16 mg/dL 7-23 0897196348) GLUCOSE (test code = 151 mg/dL 70-110 H 2093566865) CREATININE (test code = 0.74 mg/dL 0.6-1.25 1508351964) CALCIUM (test code = 8.9 mg/dL 8.6-10.6 1478753873) eGFR (test code = mL/min/1.73m2 4169889100) ALIREZA (test code = ALIREZA) Association of Glomerular Filtration Rate (GFR) and Staging of Kidney Disease* + --+ --+ ------+| GFR (mL/min/1.73 m2) ?| With Kidney Damage ?| ?Without Kidney Damage+ --------+ --------+ +| ?>90 ?| ?Stage one ?| ? Normal ?+ ---+ ---+ -------+| ?60-89 ?| ?Stage two ?| ? Decreased GFR ? + --+ --+ ------+| ?30-59 ?| ?Stage three ?| ? Stage three ? + --+ --+ ------+| ?15-29 ?| ?Stage four ? | ? Stage four ?+ ---+ ---+ -------+| ?<15 (or dialysis) ? ?| ?Stage five ? | ? Stage five ?+ ---+ ---+ -------+ *Each stage assumes the associated GFR level has been in effect for at least three months. ?Stages 1 to 5, with or without kidney disease, indicate chronic kidney disease. Notes: Determination of stages one and two (with eGFR >59mL/min/1.73 m2) requires estimation of kidney damage for at least three months as defined by structural or functional abnormalities of the kidney, manifested by either:Pathological abnormalities or Markers of kidney damage (including abnormalities in the composition of the blood or urine or abnormalities in imaging tests). Lab Interpretation Abnormal (test code = 29607-2) [facility] 15:23:03 Test Item Value Reference Range Interpretation Comments LIPASE (test code = 0957105243) 542 U/L 0-220 H Lab Interpretation (test code = Abnormal 15061-2) [facility] GLUCOSE (AUTOMATED)2022-03-28 14:14:53 Test Item Value Reference Range Interpretation Comments POCT GLU (test code = 3138272364) 158 mg/dL 70-110 H Lab Interpretation (test code = Abnormal 46993-5) [facility] GLUCOSE (AUTOMATED)2022-03-28 13:30:12 Test Item Value Reference Range Interpretation Comments POCT GLU (test code = 2378464279) 142 mg/dL 70-110 H Lab Interpretation (test code = Abnormal 39954-2) [facility] GLUCOSE (AUTOMATED)2022-03-28 12:03:24 Test Item Value Reference Range Interpretation Comments POCT GLU (test code = 5660487344) 126 mg/dL 70-110 H Lab Interpretation (test code = Abnormal 22261-8) [facility] GLUCOSE (AUTOMATED)2022-03-28 12:01:22 Test Item Value Reference Range Interpretation Comments POCT GLU (test code = 8847394205) 153 mg/dL 70-110 H Lab Interpretation (test code = Abnormal 34743-6) [facility] GLUCOSE (AUTOMATED)2022-03-28 10:06:41 Test Item Value Reference Range Interpretation Comments POCT GLU (test code = 6306492548) 129 mg/dL 70-110 H Lab Interpretation (test code = Abnormal 32369-8) [facility] GLUCOSE (AUTOMATED)2022-03-28 09:19:53 Test Item Value Reference Range Interpretation Comments POCT GLU (test code = 4930304922) 96 mg/dL 70-110 Lab Interpretation (test code = Normal 25259-4) [facility] GLUCOSE (AUTOMATED)2022-03-28 09:07:06 Test Item Value Reference Range Interpretation Comments POCT GLU (test code = 7030914497) 100 mg/dL 70-110 Lab Interpretation (test code = Normal 79721-2) [facility] GLUCOSE (AUTOMATED)2022-03-28 08:03:00 Test Item Value Reference Range Interpretation Comments POCT GLU (test code = 3828724779) 84 mg/dL 70-110 Lab Interpretation (test code = Normal 54090-6) [facility]ITY LIPOPROTEIN, [id number] 07:07:47 Test Item Value Reference Range Interpretation Comments dLDL Chol (test code = 121 mg/dL See_Comment [Aut omated message] 46907-9) The system Ping4 generated this result transmit kami reference range : <=130. The refe rence range was not u sed to interpret th is result as normal/abnormal . Lab Interpretation (test Normal code = 79540-1) [facility] GLUCOSE (AUTOMATED)2022-03-28 06:55:56 Test Item Value Reference Range Interpretation Comments POCT GLU (test code = 3543733065) 85 mg/dL 70-110 Lab Interpretation (test code = Normal 46893-8) [facility] GLUCOSE (AUTOMATED)2022-03-28 04:19:10 Test Item Value Reference Range Interpretation Comments POCT GLU (test code = 3927619594) 108 mg/dL 70-110 Lab Interpretation (test code = Normal 46210-0) [facility] PAN[facility] (09354)(TOTAL CHOLESTEROL, TRIGLYCERIDES, HDL)2022-03-27 23:43:53 Test Item Value Reference Range Interpretation Comments CHOL (test code = 314 mg/dL 120-200 H 6334702230) HDL (test code = 30 mg/dL See_Comment L [Automated message] 1479875328) The system Ping4 generated this result transmitted ref erence range: >=40. Th e reference range was not used to int erpret this result as normal/abnormal . HDLC RATIO (test code = See_Comment H [Au tomated message] 4378780978) The system [facility] [place] generated this result transmitted ref erence range: <=5.0. T he reference range was not used to int erpret this result as normal/abnormal . TRIG (test code = 804 mg/dL 30-170 H 8765549793) LDL CHOL (test code = Unable to calculate 79602-3) LDL due to elev ated triglyceride le daniele greater than 40 0 mg/dL. VLDL (test code = Unable to calculate 9088316116) VLDL due to asha vated triglyceride le daniele greater than 71 0 mg/dL. Lab Interpretation Abnormal (test code = 97874-1) [facility] WITH [id number] 21:40:45 Test Item Value Reference Range Interpretation Comments WBC (test code = See_Comment H [Automated 6092-2) message] The system which generated this result transmit kami reference range : 4.20 - 10.70 10*3/?L. The reference range was not used to interpret this result as normal/abnormal . RBC (test code = See_Comment [Automated 989-8) message] The system which generated this result transmit kami reference range : 4.26 - 5.52 10*6/?L. The reference range was not used to interpret this result as normal/abnormal . HGB (test code = 16.0 g/dL 12.2-16.4 718-7) HCT (test code = 46.8 % 38.4-49.3 4544-3) MCV (test code = 90.3 fL 81.7-95.6 787-2) MCH (test code = 30.9 pg 26.1-32.7 785-6) MCHC (test code = 34.2 g/dL 31.2-35 786-4) RDW-SD (test code = 43.5 fL 38.5-51.6 09256-8) RDW-CV (test code = 13.0 % 12.1-15.4 788-0) PLT (test code = See_Comment [Automated 777-3) message] The system which generated this result transmit kami reference range : 150 - 328 10*3/ ?L. The reference range was not u sed to interpret th is result as normal/abnormal . MPV (test code = 10.2 fL 9.8-13 02435-1) NRBC/100 WBC (test See_Comment [Automat ed code = 6296673394) message] The system which generated this result transmit kami reference range : 0.0 - 10.0 /100 WBCs. The reference range was not used to interpret this result as normal/abnormal . NRBC x10^3 (test code See_Comment [Auto mated = 6211071079) message] The system which generated this result transmit kami reference range : 10*3/?L. The reference range was not used to interpret this result as normal/abnormal . GRAN MAT (NEUT) % 63.3 % (test code = 770-8) IMM GRAN % (test code 0.60 % = 6914913008) LYMPH % (test code = 27.7 % 736-9) MONO % (test code = 6.5 % 5905-5) EOS % (test code = 1.5 % 713-8) BASO % (test code = 0.4 % 706-2) GRAN MAT x10^3(ANC) 10.15 10*3/uL 1.99-6.95 H (test code = 4016092581) IMM GRAN x10^3 (test 0.10 10*3/uL 0-0.06 H code = 8609565424) LYMPH x10^3 (test code 4.44 10*3/uL 1.09-3.23 H = 731-0) MONO x10^3 (test code 1.05 10*3/uL 0.36-1.02 H = 742-7) EOS x10^3 (test code = 0.24 10*3/uL 0.06-0.53 711-2) BASO x10^3 (test code 0.07 10*3/uL 0.01-0.09 = 704-7) Lab Interpretation Abnormal (test code = 06938-2) [facility] 21:28:41 Test Item Value Reference Range Interpretation Comments ZULAY (test code = 6071160463) 129 U/L 35-110 H Lab Interpretation (test code = Abnormal 14546-7) [facility]OLIC PAN[facility] (39992)2022-03-27 20:58:34 Test Item Value Reference Range Interpretation Comments NA (test code = 140 mmol/L 135-145 2547311591) K (test code = 4.0 mmol/L 3.5-5 2585745271) CL (test code = 108 mmol/L 98-108 4633419263) CO2 TOTAL (test code = 20 mmol/L 23-31 L 3895344278) AGAP (test code = 2-16 1764003374) BUN (test code = 14 mg/dL 7-23 3030402283) GLUCOSE (test code = 120 mg/dL 70-110 H 5414272353) CREATININE (test code = 0.86 mg/dL 0.6-1.25 7393779505) TOTAL BILI (test code = 1.0 mg/dL 0.1-1.5 6969291653) CALCIUM (test code = 9.9 mg/dL 8.6-10.6 8859203817) T PROTEIN (test code = 7.9 g/dL 6.3-8.2 1981905536) ALBUMIN (test code = 5.0 g/dL 3.5-5 9773121248) ALK PHOS (test code = 90 U/L 34-122 9683753076) ALTv (test code = 33 U/L 5-50 1742-6) AST(SGOT) (test code = 26 U/L 13-40 1344884239) eGFR (test code = mL/min/1.73m2 8527271289) ALIREZA (test code = ALIREZA) Association of Glomerular Filtration Rate (GFR) and Staging of Kidney Disease* + --+ --+ ------+| GFR (mL/min/1.73 m2) ?| With Kidney Damage ?| ?Without Kidney Damage+ --------+ --------+ +| ?>90 ?| ?Stage one ?| ? Normal ?+ ---+ ---+ -------+| ?60-89 ?| ?Stage two ?| ? Decreased GFR ? + --+ --+ ------+| ?30-59 ?| ?Stage three ?| ? Stage three ? + --+ --+ ------+| ?15-29 ?| ?Stage four ? | ? Stage four ?+ ---+ ---+ -------+| ?<15 (or dialysis) ? ?| ?Stage five ? | ? Stage five ?+ ---+ ---+ -------+ *Each stage assumes the associated GFR level has been in effect for at least three months. ?Stages 1 to 5, with or without kidney disease, indicate chronic kidney disease. Notes: Determination of stages one and two (with eGFR >59mL/min/1.73 m2) requires estimation of kidney damage for at least three months as defined by structural or functional abnormalities of the kidney, manifested by either:Pathological abnormalities or Markers of kidney damage (including abnormalities in the composition of the blood or urine or abnormalities in imaging tests). Lab Interpretation Abnormal (test code = 91235-3) [facility] Test Item Value Reference Range Interpretation Comments LIPASE (test code = 0425091750) 1142 U/L 0-220 H Lab Interpretation (test code = Abnormal 03721-9) [facility] [id number] 14:56:00 Test Item Value Reference Range Interpretation Comments POCT HBA1C (test code = 4548-4) 5.7 % 4-6 [facility]"
[2022-12-24 01:02] LABS: Absolute Lymphocytes (CBC) 2.9 K/uL (0.7-4.9); Hematocrit 44.5 % (39.6-49.0); Lymphocytes % 14.2 % (15.3-44.8); MCV 93.2 fL (80-100); MPV 8.4 fL (7.6-11.3); RBC Red Blood Cell Count 4.78 M/uL (4.33-5.43)
[2022-12-24] MEDS ORDERED: FAMOTIDINE 20 MG/2 ML VIAL IV ONE (01:22)
[2022-12-24] MEDS ORDERED: HALOPERIDOL LACT 5 MG/ML INJ ONE (01:22)
[2022-12-24] MEDS ORDERED: NA CHLORIDE 0.9% 1,000 ML ONE (01:22)
[2022-12-24] MEDS ORDERED: SIMETHICONE 80 MG TAB ONE (01:22)
[2022-12-24 01:46] LABS: ALT/SGPT 44 U/L (16-61); Albumin 3.8 g/dL (3.4-5.0); Alkaline Phosphatase 113 U/L (45-117); BUN Blood Urea Nitrogen 12 mg/dL (7-18); Bicarbonate 24 mEq/L (21-32); Bilirubin Total 0.4 mg/dL (0.2-1.0); Glomerular Filtration Rate 109 ml/min (=/>90); Glucose Level 125 mg/dL (74-106); Lipase 46 U/L (13-75); Protein, Total 7.8 g/dL (6.4-8.2); Sodium Level 138 mEq/L (136-145)
[2022-12-24 01:49] LABS: AST/SGOT 34 U/L (15-37); Potassium 4.4 mEq/L (3.5-5.1)
[2022-12-24 01:57] LABS: HDL Cholesterol 20 mg/dL (40-60)
[2022-12-24 02:09] LABS: LDL, Direct 75 mg/dL (100-129)
[2022-12-24] MEDS ORDERED: MORPHINE 4 MG/ML SYR ONE (02:47)
--- NOTE | 2022-12-24 03:35 | ER ---
Nurse's Notes [facility] Name: Danielito Sue Age: 42 yrs Sex: Male : 1980 Arrival Date: 12/24/2022 Time: 00:12 Bed 20 Private MD: Diagnosis: Abdominal pain, Generalized;Abdominal pain, unspecified Presentation: 12/24 00:30 Chief complaint: Patient states: States "my Pancrease is acting up again", c/o upper ll3 abdominal pain and nausea. Coronavirus screen: Vaccine status: Patient reports being unvaccinated. At this time, the client does not indicate any symptoms associated with coronavirus-19. Ebola Screen: No symptoms or risks identified at this time. Initial Sepsis Screen: Does the patient meet any 2 criteria? No. Patient's initial sepsis screen is negative. Does the patient have a suspected source of infection? No. Patient's initial sepsis screen is negative. Risk Assessment: Do you want to hurt yourself or someone else? Patient reports no desire to harm self or others. Onset of symptoms was December 23, 2022 at 12:00. 00:30 Method Of Arrival: Ambulatory ll3 00:30 Acuity: YUDITH 3 ll3 Triage Assessment: 00:34 General: Appears uncomfortable, Behavior is calm, cooperative. Pain: Complains of pain ll3 in right upper quadrant and left upper quadrant Pain does not radiate. Pain currently is 6 out of 10 on a pain scale. Pain began 1200 Is continuous. Neuro: Level of Consciousness is awake, alert, obeys commands, Oriented to person, place, time, situation. GI: Abdomen is round non-distended, Reports upper abdominal pain, nausea. Derm: Skin is pink, warm \\T\\ dry. Historical: - Allergies: 00:34 No Known Allergies; ll3 - Home Meds: 00:34 fenofibrate oral [Active]; Amitriptyline Oral [Active]; pantoprazole oral [Active]; ll3 01:33 atorvastatin oral [Active]; Creon oral [Active]; icosapent ethyl oral [Active]; ll3 - PSHx: 00:34 Appendectomy; Cholecystectomy; ll3 - Immunization history:: Client reports having NOT received the Covid vaccine. - Social history:: Smoking status: Patient reports the use of cigarette tobacco products, smokes one-half pack cigarettes per day. Screenin:[address] [facility] ED Fall Risk Assessment (Adult) History of falling in the last 3 months, ll3 including since admission No falls in past 3 months (0 pts) Confusion or Disorientation No (0 pts) Intoxicated or Sedated No (0 pts) Impaired Gait No (0 pts) Mobility Assist Device Used No (0 pt) Altered Elimination No (0 pt) Score/Fall Risk Level 0 - 2 = Low Risk Oriented to surroundings, Maintained a safe environment, Educated pt \\T\\ family on fall prevention, incl call for assistance when getting out of bed. Abuse screen: Denies threats or abuse. Denies injuries from another. Nutritional screening: No deficits noted. Tuberculosis screening: No symptoms or risk factors identified. Assessment: 00:34 General: See triage assessment. ll3 01:30 Reassessment: No changes from previously documented assessment. Patient and/or family ll3 updated on plan of care and expected duration. Pain level reassessed. Patient is alert, oriented x 3, equal unlabored respirations, skin warm/dry/pink. 02:40 Reassessment: No changes from previously documented assessment. Patient and/or family ll3 updated on plan of care and expected duration. Pain level reassessed. Patient is alert, oriented x 3, equal unlabored respirations, skin warm/dry/pink. C/o abdominal pain 6/10, ERP notified. Vital Signs: 00:30 BP 151 / 101; Pulse 82; Resp 17; Temp 98.2(O); Pulse Ox 100% on R/A; Weight 92.99 kg ll3 (R); Height 5 ft. 9 in. (R); Pain 6/10; 01:30 BP 134 / 85; Pulse 80; Resp 15; Pulse Ox 98% on R/A; ll3 03:06 BP 123 / 86; Pulse 76; Resp 13; Pulse Ox 99% on R/A; ll3 00:30 Body Mass Index 30.27 (92.99 kg, 175.26 cm) ll3 00:30 Pain Scale: Adult ll3 ED Course: 00:22 Patient arrived in ED. ag3 00:34 Triage completed. ll3 00:34 Arm band placed on Patient placed in an exam room, on a stretcher, on pulse oximetry. ll3 00:35 Xiomara Ramires FNP-C is PHCP. snw 00:35 Ezequiel Weinberg MD is Attending Physician. snw 00:57 CBC with Diff Sent. bc6 00:57 CMP Sent. bc6 01:01 Inserted saline lock: 20 gauge in right antecubital area, using aseptic technique. bc6 01:52 Patient has correct armband on for positive identification. Bed in low position. Call ll3 light in reach. Side rails up X 1. 01:52 No provider procedures requiring assistance completed. ll3 02:32 CT Abd/Pelvis - IV Contrast Only In Process Unspecified. EDMS 02:57 Add On-Lab Sent. sb4 03:46 IV discontinued, intact, bleeding controlled, No redness/swelling at site. Pressure ll3 dressing applied. Administered Medications: 01:24 Drug: Simethicone PO 240 mg Route: PO; ll3 02:38 Follow up: Response: No adverse reaction; No change in condition ll3 01:25 Drug: Haloperidol IVP 2.5 mg/50 mL 2.5 mg Route: IVP; Site: right antecubital; ll3 02:38 Follow up: Response: No adverse reaction; No change in condition ll3 01:25 Drug: NS 0.9% IV 1000 ml Route: IV; Rate: 1 bolus; Site: right antecubital; ll3 01:25 Drug: Famotidine IVP 20 mg Route: IVP; Site: right antecubital; ll3 02:38 Follow up: Response: No adverse reaction; No change in condition ll3 02:43 Drug: morphine IVP or IV 4 mg Route: IVP; Infused Over: 4 mins; Site: right antecubital;ll3 03:46 Follow up: Response: No adverse reaction; Marked relief of symptoms ll3 Medication: 03:46 VIS not applicable for this client. ll3 Outcome: 03:34 Discharge ordered by . kdr 03:46 Discharged to home ambulatory. ll3 03:46 Condition: stable 03:46 Discharge instructions given to patient, Instructed on discharge instructions, follow up and referral plans. Demonstrated understanding of instructions, follow-up care. 03:47 Patient left the ED. ll3 Signatures: Dispatcher [employer] EDMI Ezequiel Weinberg MD MD kdr Waters, Shelly, FNP-C CAROUSEL ATTENDANT-Emilw Osiris Johnson ag3 Linh Ulloa, RN RN ll3 Kelly Crane, RAÚL PAHeraclioC sb4 Kandice Molina bc6
--- NOTE | 2022-12-24 03:35 | EDPHYS ---
Physician Documentation [facility] Name: Danielito Sue Age: 42 yrs Sex: Male : 1980 Arrival Date: 12/24/2022 Time: 00:12 Bed 20 Private MD: ED Physician Ezequiel Weinberg HPI: 12/24 00:44 This 42 yrs old Male presents to ER via Ambulatory with complaints of Abdominal Pain. snw 00:44 The patient presents with abdominal pain in the upper abdomen. Onset: The snw symptoms/episode began/occurred suddenly, yesterday, at 14:00. The symptoms do not radiate. Associated signs and symptoms: Pertinent positives: anorexia, nausea. The symptoms are described as constant, shooting. Severity of pain: At its worst the pain was incapacitating. The patient has experienced similar episodes in the past, chronically, chronic pancreatitis, pt states he usually takes his regular medications and the pain is gone in 2 hours. Medications did nothing to help yesterday. The patient has not recently seen a physician. Historical: - Allergies: 00:34 No Known Allergies; ll3 - Home Meds: 00:34 fenofibrate oral [Active]; Amitriptyline Oral [Active]; pantoprazole oral [Active]; ll3 01:33 atorvastatin oral [Active]; Creon oral [Active]; icosapent ethyl oral [Active]; ll3 - PSHx: 00:34 Appendectomy; Cholecystectomy; ll3 - Immunization history:: Client reports having NOT received the Covid vaccine. - Social history:: Smoking status: Patient reports the use of cigarette tobacco products, smokes one-half pack cigarettes per day. ROS: 00:43 Constitutional: Negative for fever, chills, and weight loss, Eyes: Negative for injury, snw pain, redness, and discharge, ENT: Negative for injury, pain, and discharge, Neck: Negative for injury, pain, and swelling, Cardiovascular: Negative for chest pain, palpitations, and edema, Respiratory: Negative for shortness of breath, cough, wheezing, and pleuritic chest pain, Back: Negative for injury and pain, : Negative for injury, bleeding, discharge, and swelling, MS/Extremity: Negative for injury and deformity, Skin: Negative for injury, rash, and discoloration, Neuro: Negative for headache, weakness, numbness, tingling, and seizure, Psych: Negative for depression, anxiety, suicide ideation, homicidal ideation, and hallucinations. 00:43 Abdomen/GI: Positive for abdominal pain, of the "band around my upper abdomen, I have chronic pancreatitis". Exam: 00:42 Constitutional: This is a well developed, well nourished patient who is awake, alert, snw and in no acute distress. Head/Face: Normocephalic, atraumatic. Eyes: Pupils equal round and reactive to light, extra-ocular motions intact. Lids and lashes normal. Conjunctiva and sclera are non-icteric and not injected. Cornea within normal limits. Periorbital areas with no swelling, redness, or edema. ENT: Nares patent. No nasal discharge, no septal abnormalities noted. Tympanic membranes are normal and external auditory canals are clear. Oropharynx with no redness, swelling, or masses, exudates, or evidence of obstruction, uvula midline. Mucous membranes moist. Neck: Trachea midline, no thyromegaly or masses palpated, and no cervical lymphadenopathy. Supple, full range of motion without nuchal rigidity, or vertebral point tenderness. No Meningismus. Chest/axilla: Normal chest wall appearance and motion. Nontender with no deformity. No lesions are appreciated. Cardiovascular: Regular rate and rhythm with a normal S1 and S2. No gallops, murmurs, or rubs. Normal PMI, no JVD. No pulse deficits. Respiratory: Lungs have equal breath sounds bilaterally, clear to auscultation and percussion. No rales, rhonchi or wheezes noted. No increased work of breathing, no retractions or nasal flaring. Back: No spinal tenderness. No costovertebral tenderness. Full range of motion. Skin: Warm, dry with normal turgor. Normal color with no rashes, no lesions, and no evidence of cellulitis. MS/ Extremity: Pulses equal, no cyanosis. Neurovascular intact. Full, normal range of motion. Neuro: Awake and alert, GCS 15, oriented to person, place, time, and situation. Cranial nerves II-XII grossly intact. Motor strength 5/5 in all extremities. Sensory grossly intact. Cerebellar exam normal. Normal gait. Psych: Awake, alert, with orientation to person, place and time. Behavior, mood, and affect are within normal limits. 00:42 Abdomen/GI: Inspection: abdomen appears normal, Bowel sounds: normal, Palpation: moderate abdominal tenderness, in the right upper quadrant and left upper quadrant. Vital Signs: 00:30 BP 151 / 101; Pulse 82; Resp 17; Temp 98.2(O); Pulse Ox 100% on R/A; Weight 92.99 kg ll3 (R); Height 5 ft. 9 in. (R); Pain 6/10; 01:30 BP 134 / 85; Pulse 80; Resp 15; Pulse Ox 98% on R/A; ll3 03:06 BP 123 / 86; Pulse 76; Resp 13; Pulse Ox 99% on R/A; ll3 00:30 Body Mass Index 30.27 (92.99 kg, 175.26 cm) ll3 00:30 Pain Scale: Adult ll3 MDM: 00:37 Patient medically screened. snw 01:29 Differential diagnosis: gastroesophageal reflux disease, pancreatitis, Perf. Gastric snw Ulcer. 02:10 Data reviewed: vital signs, nurses notes, lab test result(s). I considered the snw following discharge prescriptions or medication management in the emergency department Medications were administered in the Emergency Department. See MAR. Counseling: I had a detailed discussion with the patient and/or guardian regarding: the historical points, exam findings, and any diagnostic results supporting the discharge/admit diagnosis, lab results. Awaiting: CT scan results. Transition of care: After a detail discussion of the patient's case, care is transferred to Ezequiel Weinberg MD. 12/24 00:42 Order name: CBC with Diff; Complete Time: 01:22 snw 12/24 03:26 Interpretation: Abnormal. kdr 12/24 00:42 Order name: CMP; Complete Time: 02:10 snw 12/24 00:42 Order name: Lipase; Complete Time: 02:10 snw 12/24 01:22 Order name: Add On-Lab; Complete Time: 02:57 snw 12/24 01:47 Order name: Lipid Profile; Complete Time: 02:10 EDMS 12/24 02:00 Order name: LDL, Direct; Complete Time: 02:10 EDMS 12/24 00:42 Order name: CT Abd/Pelvis - IV Contrast Only snw 12/24 00:42 Order name: IV Saline Lock; Complete Time: 00:57 snw 12/24 00:42 Order name: Labs collected and sent; Complete Time: 00:57 snw Administered Medications: 01:24 Drug: Simethicone PO 240 mg Route: PO; ll3 02:38 Follow up: Response: No adverse reaction; No change in condition ll3 01:25 Drug: Haloperidol IVP 2.5 mg/50 mL 2.5 mg Route: IVP; Site: right antecubital; ll3 02:38 Follow up: Response: No adverse reaction; No change in condition ll3 01:25 Drug: NS 0.9% IV 1000 ml Route: IV; Rate: 1 bolus; Site: right antecubital; ll3 01:25 Drug: Famotidine IVP 20 mg Route: IVP; Site: right antecubital; ll3 02:38 Follow up: Response: No adverse reaction; No change in condition 3 02:43 Drug: morphine IVP or IV 4 mg Route: IVP; Infused Over: 4 mins; Site: right antecubital;3 03:46 Follow up: Response: No adverse reaction; Marked relief of symptoms ll3 Disposition Summary: 12/24/22 03:34 Discharge Ordered Location: Home kdr Problem: an acute exacerbation kdr Symptoms: have improved kdr Condition: Stable kdr Diagnosis - Abdominal pain, Generalized kdr - Abdominal pain, unspecified kdr Followup: kdr - With: Private Physician - When: 2 - 3 days - Reason: If symptoms return, Further diagnostic work-up, Recheck today's complaints, Continuance of care, Re-evaluation by your physician Discharge Instructions: - Discharge Summary Sheet kdr - Abdominal Pain, Adult, [id number] kdr Forms: - Medication Reconciliation Form kdr - Thank You Letter kdr Signatures: Dispatcher [employer] [facility] Ezequiel Weinberg MD MD kdr Xiomara Ramires, SHOE PARTS CASER-C SHOE PARTS CASER-Linh Small RN RN ll3 Kelly Crane PA-C PAHeraclioC sb4
[2022-12-24 04:07] VITALS: TEMP 98.2
[2022-12-24 04:14] VITALS: BP 123/86; O2SAT 99
--- NOTE | 2022-12-24 16:19 | RAD REPORT ---
EXAM DESCRIPTION: CT - Abdomen Pelvis W Contrast - 12/24/2022 6:41 am CLINICAL HISTORY: The patient is 42 years old and is Male; ABD PAIN [facility] MAIN TECHNIQUE: Axial computed tomography images of the abdomen and pelvis with intravenous contrast. S agittal and coronal reformatted images were created and reviewed. This CT exam was performed using one or more of the following dose reduction techniques: automated exposure control, adjustment of t he mA and/or kV according to patient size, and/or use of iterative reconstruction technique. COMPARISON: No relevant prior studies available. FINDINGS: LUNG BASES: Unremarkable. No mass. No consolidation. ABDOMEN: LIVER: Mild hepatomegaly with hepatic steatosis. GALLBLADDER AND BILE DUCTS: Cholecystectomy. No ductal dilation. PANCREAS: Unremarkable. No mass. No ductal dilation. SPLEEN: Unremarkable. No splenomegaly. ADRENALS: Unremarkable. No mass. KIDNEYS AND URETERS: Tiny nonobstructive intrarenal stone in the superior pole of the left kidney. STOMACH AND BOWEL: Unremarkable. No obstruction. No mucosal thickening. PELVIS: APPENDIX: Presumed appendectomy, with surgical clips noted about the cecum. BLADDER: Unremarkable. No mass. REPRODUCTIVE: Unremarkable as visualized. ABDOMEN and PELVIS: INTRAPERITONEAL SPACE: Unremarkable. No free air. No significant fluid collection. BONES/JOINTS: No acute fracture. No dislocation. SOFT TISSUES: Unremarkable. VASCULATURE: Unremarkable. No abdominal aortic aneurysm. LYMPH NODES: Unremarkable. No enlarged lymph nodes. IMPRESSION: 1. No acute abnormality within the abdomen or pelvis. 2. Mild hepatomegaly with hepatic steatosis. 3. Tiny nonobstructive intrarenal stone in the superior pole of the left kidney. 4. Cholecystectomy and appendectomy. Electronically signed by: Ankit Wilkerson MD 12/24/2022 2:47 AM CDT Due to temporary technical issues with the PACS/Fluency reporting system, reports are being signed by the in house radiologist without review as a courtesy to ensure prompt reporting. The interpreting r adiologist is fully responsible for the content of the report.
== END 2022-12-24 03:47 | disposition home or self-care (01) ==
LOC: ER 00:12
DX: R10.84 Generalized abdominal pain (principal); F17.210 Nicotine dependence, cigarettes, uncomplicated
CPT/HCPCS: 85025; 36415; 83721; 80061; 83690; 80053; 74177; 96375; 96374; 99284; Q9967; J1630; J7030

== ENCOUNTER 2023-11-19 00:07 | Emergency (ER) | payer OTHER ==
--- OUTSIDE RECORDS SUMMARY | 2023-11-19 00:20 | XMS REPORT | Continuity of Care Document ---
Author Name Unknown Address [address] [facility] [address] [place] [address] [facility] Address [address] [facility] [address] [place] [address] Care Team Providers Care Web Consultant Name Role Phone Diana Vergara MD Primary Care Physician Diana Vergara Attending Clinician Unavailable Johanna Vergara Attending Clinician Unavailable CAMILA BROUSSARD Attending Clinician Unavailable CAMILA BROUSSARD Attending Clinician Unavailable Kurt KHAN, Margaret Horton Attending Clinician [phone] IFEOMA ESPINOZA Attending Clinician Unavailable Isidro Amaya MD Attending Clinician [phone] Ifeoma Espinoza DO Attending Clinician [phone] Case Fuchs MD Attending Clinician [phone] Ceasar Galan DO Attending Clinician [phone] Celina Carlin RN Attending Clinician Unavail able LEON EALRY Attending Clinician Unavailable Manny Anand MD Attending Clinician [phone] VICKY FIGUEROA Attending Clinician Unavailable Daphnie Garcia LVN Attending Clinician [phone] MARITO PINZON Attending Clinician Unavailable Lam Corrigan S Attending Clinician [phone] Lane HERRON, Ninfa Erickson Attending Clinician [phone] Marito Pinzon MD Attending Clinician [phone] LAM NAVARRO S Attending Clinician Unavailable Henry HERRON, Vicky Attending Clinician [phone] Doctor Unassigned, Dahlen Attending Clinician U navailable AARON, JOHNATHAN Attending Clinician Unavailable AARON, JOHNATHAN Attending Clinician Unavailable NOVA GOMEZ M Attending Clinician Unavailabl e Willa HERRON, Nova Horton Attending Clinician [phone] Tamika Tello Attending Clinician LITO BEAUCHAMP Attending Clinician Unavailable Alice Claire Attending Clinician [phone] Israel Cantu MD Attending Clinician [phone] Yvrose Lisa MD Attending Clinician [phone] YVROSE LISA Attending Clinician Unavailable Merced Disla NP Attending Clinician [phone] MERCED DISLA Attending Clinician Unavailab CASE Castañeda Attending Clinician Unavailable ORLIN SEBASTIAN Attending Clinician Unavailabl e 2, [facility] Attending Clinician Unavailable Pob, [facility] Main Attending Clinician Unavailabl e Mayte ALCANTAR, Charlie Santos Attending Clinician [phone] Jose Attending Clinician Unavailable Neo Islas DO Attending Clinician [phone] Barron ALCANTAR, Samaria Tran Attending Clinician [phone] Irena Myles MD Attending Clinician + [phone] IRENA MYLES Attending Clinician Whitney Bragg Attending Clinician Unavailable Whitney Max Attending Clinician [phone] Provider, [facility] Attending Clinician Un available Velma Swenson Attending Clinician [phone] JAMES CANO Attending Clinician Unavailmendy Cano MD, James Vallecillo Attending Clinician JOHN CARRANZA Attending Clinician Unavailmendy Carranza MD, John Vargas Attending Clinician + [phone] , [facility] Room 1 - Attending Clinician Ekaterina Arguelles MD, Saulchantal Attending Clinician [phone] NIKOS DIAZ Attending Clinician Unavailable Nikos Diaz MD Attending Clinician [phone] Unknown, Attending Attending Clinician Unavailab vane Hills RN, Celina Attending Clinician [phone] JESSICA GARNER Attending Clinician Unavailable Daphnie Hudson Attending Clinician + Jessica Garner MD Attending Clinician [phone] Katya Cleary MD Attending Clinician [phone] Shaan Hassan MD Attending Clinician [phone] CASE FUCHS Admitting Clinician Unavailable Case Fuchs MD Admitting Clinician [phone] IFEOMA ESPINOZA Admitting Clinician Unavailable Ifeoma Espinoza DO Admitting Clinician [phone] MARITO PINZON Admitting Clinician Unavailable Marito Pinzon MD Admitting Clinician [phone] NOVA GOMEZ Admitting Clinician Unavailkevin Garcia Admitting Clinician Unavailable Whitney BARKER Admitting Clinician Unavailable YVROSE LISA Admitting Clinician Unavailable NIKOS DIAZ Admitting Clinician Unavailable JESSICA GARNER Admitting Clinician Unavailable Jessica Garner MD Admitting Clinician [phone] Shaan Hassan MD Admitting Clinician [phone] Payers Payer Name Policy Type Policy Number Effective Date Expirati on Date Source HIM [facility] BLUE ADVANTAGE [facility] [id number] 2018 00:00:00 [employer] GENERIC [id number] 2023 00:00:00 [employer] [place] [address] [id number] [facility] Blue Cross Blue Shield O 6 [id number] [facility] Problems Condition Name Condition Details Condition Category Status Onset Date Resolution Date Last Treatment Date Treating Clinician Comments Source Mixed hyperlipid emia Mixed hyperlipid emia Disease Active 03-27 00:00: 00 [facility] Abdominal pain, unspecifie d abdominal location Abdominal pain, unspecifie d abdominal location Disease Active 03-27 00:00: 00 [facility] Acute pancreatit is without necrosis or infection, unspecifie d Acute pancreatit is without necrosis or infection, unspecifie d Disease Active 4-14 00:00: 00 [facility] Chronic recurrent pancreatit is Chronic recurrent pancreatit is Disease Active 2020-07 0-21 00:00: 00 [facility] Vitamin D deficiency Vitamin D deficiency Disease Active 2020-07 0- 00:00: 00 [facility] Fatigue, unspecifie d type Fatigue, unspecifie d type Disease Active 2019-07 0-02 00:00: 00 [facility] Herpes zoster without complicati on Herpes zoster without complicati on Disease Active 7-02 00:00: 00 [facility] Pericardia l effusion Pericardia l effusion Disease Active 3-20 00:00: 00 [facility] Hospital discharge follow-up Hospital discharge follow-up Disease Active 3-20 00:00: 00 [facility] Trigeminal herpes zoster Trigeminal herpes zoster Disease Active 3-20 00:00: 00 [facility] Incidental lung nodule, > 3mm and < 8mm Incidental lung nodule, > 3mm and < 8mm Disease Active 3-20 00:00: 00 [facility] Chest pain in adult Chest pain in adult Disease Active 3-14 00:00: 00 [facility] Pain of upper abdomen Pain of upper abdomen Disease Active 2018-07 0-07 00:00: 00 [facility] Biliary sludge Biliary sludge Disease Active 2018-07 0-07 00:00: 00 [facility] Continuous dependence on cigarette smoking Continuous dependence on cigarette smoking Disease Active 2018-07 00:00: 00 [facility] Nicotine dependence with current use Nicotine dependence with current use Disease Active 04-20 00:00: 00 [facility] Biliary disease with obstructio n Biliary disease with obstructio n Disease Active 04-20 00:00: 00 [facility] Drug-induc ed constipati on Drug-induc ed constipati on Disease Active 04-20 00:00: 00 [facility] Nicotine dependence with current use Nicotine dependence with current use Disease Active 04-20 00:00: 00 [facility] Acute pancreatit is without infection or necrosis, unspecifie d pancreatit is type Acute pancreatit is without infection or necrosis, unspecifie d pancreatit is type Disease Active 04-01 00:00: 00 [facility] Obesity (BMI 30-39.9) Obesity (BMI 30-39.9) Disease Active 04-01 00:00: 00 [facility] [id number] Elevated cholestero l with elevated triglyceri yao Problem [facility] [id number] PTSD (post-trau matic stress disorder) Problem [facility] [id number] Primary insomnia Problem [facility] Chronic pancreatit is Chronic pancreatit is Problem [facility] Gout Gout Problem [facility] Gastroesop hageal reflux disease GERD (gastroeso phageal reflux disease) Problem [facility] Hypertrigl yceridemia Hypertrigl yceridemia Problem [facility] Chronic pain Chronic pain Problem [facility] [id number] Moderate major depression Problem [facility] Allergies, Adverse Reactions, Alerts Allergy Name Allergy Type Status Severity Reaction(s) Onset Date Inactive Date Treating Clinician Comments Source MORPHINE (PF) DRUG Active Low ITCHING 03-28 00:00: 00 [facility] Morphine (Pf) Propensi ty to adverse reaction s Active Rash 03-28 00:00: 00 [facility] NO KNOWN ALLERGIE S Drug Class Active [facility] Social History Social Habit Start Date Stop Date Quantity Comments Source History of tobacco use Passive smoker [facility] Alcohol intake 2023-11-18 00:00:00 2023-11-18 00:00:00 Ex-drinker (finding) [facility] Cigarettes smoked current (pack per day) - Reported 2023-04-22 00:00:00 2023-04-22 00:00:00 [facility] Cigarette pack-years 2023-04-22 00:00:00 2023-04-22 00:00:00 [facility] Tobacco use and exposure 2023-04-22 00:00:00 2023-04-22 00:00:00 Smokeless tobacco non-user [facility] Exposure to SARS-CoV-2 (event) 2022-10-24 00:00:00 2022-11-03 16:59:00 Not sure [facility] History of Social function 2020-02-22 00:00:00 2020-02-22 00:00:00 [facility] Smoking Status Start Date Stop Date Source Light Tobacco Smoker [facility] Never Smoker [facility] Smokes tobacco daily 2023-04-22 00:00:00 [facility] Medications Ordered Medication Name Filled Medication Name Start Date Stop Date Current Medication? Ordering Clinician Indication Dosage Frequency Signature (SIG) Comments Components Source ketorolac (TORADOL) injection 15 mg 11-18 00:30: 00 11-18 00:09 :00 No 15mg 15 mg, Slow IV Push, ONCE, 1 dose, On Sat11/18/23 at 1930, PILLO [facility] iopamidol (ISOVUE 370-500 mL) injection 80 mL 11-18 00:00: 00 11-18 00:00 :00 No [id number] 80mL 80 mL, Intravenou s, ONCE, 1 dose, On Sat11/18/23 at 1900, Routine [facility] NaCl 0.9% (NS) bolus infusion 1,000 mL 11-17 22:30: 00 11-18 00:20 :00 No 1000mL at 999 mL/hr, 1,000 mL, IV Infusion, ONCE, 1 dose, On Sat11/18/23 at 1730, PILLO [facility] ondansetron 4 mg disintegrat ing tablet 11-17 00:00: 00 11-30 04:59 :00 Yes [id number] 4mg Take 1 tablet by mouth every 8 (eight) hours as needed for Nausea and Vomiting (N/V) for up to 12 days. [facility] Ambien 10 MG Ambien 10 MG 10-22 00:00: 00 No 1{table t_at_be dtime_a s_neede d} QD Ambien 10 MG Ambien 5 MG Ambien 5 MG 10-09 00:00: 00 No 1{table t_at_be dtime_a s_neede d} QD Ambien 5 MG Ambien 5 MG Ambien 5 MG 10-09 00:00: 00 No 1{table t_at_be dtime_a s_neede d} QD Ambien 5 MG traZODone HCl 50 MG traZODone HCl 50 MG -11 00:00: 00 No 1{table t_at_be dtime_a s_neede d} QD traZODone HCl 50 MG traZODone HCl 50 MG traZODone HCl 50 MG 3-11 00:00: 00 No 1{table t_at_be dtime_a s_neede d} QD traZODone HCl 50 MG traZODone HCl 50 MG traZODone HCl 50 MG 2023- 3-11 00:00: 00 No 1{table t_at_be dtime_a s_neede d} QD traZODone HCl 50 MG LOVAZA (omega-3-ac id ethyl esters) capsule 2 g 2 15:30: 00 Yes 2g 2 g, Oral, DAILY, First dose on Sat08/28/23 at 0930, Until Discontinu ed, Routine [facility] sennosides (SENOKOT) tablet 8.6 mg 08-28 15:00: 00 Yes 8.6mg 8.6 mg, Oral, DAILY, First dose on Sat08/28/23 at 0900, Until Discontinu ed, Routine [facility] docusate (COLACE) capsule 100 mg 08-28 15:00: 00 Yes 100mg 100 mg, Oral, DAILY, First dose on Sat08/28/23 at 0900, Until Discontinu ed, Routine [facility] FENOFIBRATE ORAL 08-28 13:46: 04 Yes 1{capsu le} Take 1 capsule by mouth in the morning. [facility] lipase/prot ease/amylas e (CREON ORAL) 08-28 13:46: 04 Yes 2{capsu le} Take 2 capsules by mouth in the morning and 2 capsules at noon and 2 capsules in the evening. Take with meals. [facility] atorvastati n calcium (ATORVASTAT IN ORAL) 08-28 13:46: 04 Yes 80mg Take 80 mg by mouth at bedtime. [facility] pantoprazol e (PROTONIX) 40 mg EC tablet 08-28 13:46: 04 Yes 40mg Take 1 tablet by mouth in the morning. [facility] icosapent ethyL 1 gram capsule 08-28 13:46: 04 Yes 1g Take 1 capsule by mouth in the morning and 1 capsule in the evening. [facility] atorvastati n (LIPITOR) tablet 80 mg 08-28 03:00: 00 Yes 80mg 80 mg, Oral, QHS, First dose on Sat08/27/23 at 2100, Until Discontinu ed [facility] enoxaparin (LOVENOX) injection 40 mg 08-27 23:00: 00 Yes 40mg 40 mg, Subcutaneo us, DAILY, First dose on Sat08/27/23 at 1700, Until Discontinu ed, Routine [facility] morpHINE 30 mg/30 mL (fixed dose) [employer] injection 08-27 18:30: 00 Yes Patient Bolus Dose: 0.5 mg
Lock out Interval: 10 Minutes
Basal Rate: 0 mg/hr
F our Hour Dose Limit: 10 mg
Intr avenous, 30 mL, CONTINUOUS , Starting on Sat08/27/23 at 1230, Until Discontinu ed [facility] D10W 0.45% NaCl (1/2 NS) IV infusion 1,000 mL 08-27 17:30: 00 08-28 15:15 :36 No 1000mL at 200 mL/hr, IV Infusion, CONTINUOUS , Starting on Sat08/27/23 at 1130, Until Sat08/28/23 at 0915, Routine [facility] naloxone (NARCAN) injection 0.4 mg 08-27 17:21: 59 Yes .4mg 0.4 mg, Slow IV Push, PRN, Starting on Sat08/27/23 at 1121, Until Discontinu ed, Routine, Sedation/R espiratory Depression [facility] FENTanyl 1000 mcg/100 mL 0.9% NaCl [employer] 08-27 15:30: 00 08-27 17:22 :51 No Patient Bolus Dose: 10 mcg
Loc kout Interval: 7 Minutes
Basal Rate: 0 mcg/hr
Four Hour Dose Limit: 120 mcg
IV Infusion, 100 mL, CONTINUOUS , Starting on Sat08/27/23 at 0930, Until Sat08/27/23 at 1122 [facility] pantoprazol e (PROTONIX) EC tablet 40 mg 08-27 15:00: 00 Yes 40mg 40 mg, Oral, DAILY, First dose on Sat08/27/23 at 0900, Until Discontinu ed, Routine [facility] fenofibrate micronized (LOFIBRA) capsule 134 mg 08-27 15:00: 00 Yes 134mg 134 mg, Oral, DAILY, First dose on Sat08/27/23 at 0900, Until Discontinu ed [facility] D10W 0.45% NaCl (1/2 NS) IV infusion 1,000 mL 08-27 14:30: 00 08-27 17:23 :13 No 1000mL at 150 mL/hr, IV Infusion, CONTINUOUS , Starting on Sat08/27/23 at 0830, Until Sat08/27/23 at 1123, Routine [facility] ketorolac (TORADOL) injection 30 mg 08-27 14:20: 04 08-30 14:19 :04 Yes 30mg 30 mg, Slow IV Push, Q8HPRN, Starting on Sat08/27/23 at 0820, Until Sat08/30/23 at 0819, Routine, Alternate with [place] for pain scale 1-3 [facility] naloxone (NARCAN) injection 0.4 mg 08-27 14:18: 28 Yes .4mg 0.4 mg, Slow IV Push, PRN, Starting on Sat08/27/23 at 0818, Until Discontinu ed, Routine, Sedation/R espiratory Depression [facility] lipase-prot ease-amylas e (CREON) 12,000-38,0 00 -60,000 unit capsule 2 capsule 08-27 14:00: 00 Yes 2{capsu le} 2 capsule, Oral, TID MEALS, First dose on Sat08/27/23 at 0800, Until Discontinu ed [facility] HYDROmorpho ne (DILAUDID) injection 1 mg 08-27 11:42: 22 08-27 14:20 :30 No 1mg 1 mg, Slow IV Push, Q4HPRN, Starting on Sat08/27/23 at 0542, Until Sat08/27/23 at 0820, Routine, Pain (scale 7-10)
U se approved by (Faculty): ADC PROVIDER [facility] D10W 0.45% NaCl (1/2NS) IV infusion 08-27 11:00: 00 08-27 13:21 :47 No IV Infusion, at 125 mL/hr, CONTINUOUS , Starting on Sat08/27/23 at 0500, Until Sat08/27/23 at 0721, Routine [facility] FENTanyl PF (SUBLIMAZE (PF)) injection 50 mcg 08-27 10:15: 00 08-27 11:42 :50 No 50ug 50 mcg, Slow IV Push, Q4HPRN, Starting on Sat08/27/23 at 0415, Until Sat08/27/23 at 0542, Routine, Pain (scale 7-10) [facility] HYDROcodone -acetaminop hen (NORCO) 10-325 mg tablet 1 tablet 08-27 10:14: 58 Yes 1{tbl} 1 tablet, Oral, Q6HPRN, Starting on Sat08/27/23 at 0414, Until Discontinu ed, Routine, Pain (scale 4-6) [facility] ketorolac (TORADOL) injection 15 mg 08-27 09:45: 00 08-27 08:54 :00 No 15mg 15 mg, Slow IV Push, ONCE, 1 dose, On Sat08/27/23 at 0345, Routine [facility] FENTanyl PF (SUBLIMAZE (PF)) injection 25 mcg 08-27 08:51: 15 08-27 10:15 :08 No 25ug 25 mcg, Slow IV Push, PRN, Starting on Sat08/27/23 at 0251, Until Sat08/27/23 at 0415, Routine, Pain (scale 7-10) [facility] D5W 0.45% NaCl (1/2NS) IV infusion 1,000 mL 08-27 08:45: 00 08-27 10:17 :06 No 1000mL at 125 mL/hr, 1,000 mL, IV Infusion, CONTINUOUS , Starting on Sat08/27/23 at 0245, Until Sat08/27/23 at 0417, Routine [facility] insulin regular human (HUMULIN R) 100 Units in D5W 100 mL infusion 08-27 08:35: 47 08-28 15:15 :36 No 5U/h 5 Units/hr (5 mL/hr), IV Infusion, TITRATE, Parameters in Admin. Instr., Starting on Sat08/27/23 at 0235
PL EASE USE NORMOGLYCE YAMILA CALCULATOR &nbs p;For Patients [...] mL/hr.) if initial BG above 220 mg/dL. &amp ;nbsp;Chec k BG at least every hour until three [...] MG/DL: Stop insulin infusion, notify ICU warehouse operations associate, and treat using hypoglycem ia protocol. Once BG &n bsp;greate r than 80 mg/dL start monitoring glucose every hour. Restart Insulin infusion at HALF of prior rate only when TWO consecutiv e BG levels 1 hour apart are at or above 180 mg/dL. &nbs p;FOR BLOOD GLUCOSE BETWEEN 71-139 MG/DL:&nbs p;&nbs p;Stop insulin and continue to check BG every [...] than 20 mg/dL: DECREASE insulin rate by 1 unit/hr. If BG hourly levels increasing by [...] change is needed.&nb sp; N otify ICU Casting Machine Operator Helper if BG remains above 220 mg/dL for longer than 4 hours despite treatment.
[facility] glucagon (GLUCAGEN DIAGNOSTIC KIT) injection 1 mg 08-27 07:32: 33 Yes 1mg 1 mg, Intramuscu lar, PRN, Starting on Sat08/27/23 at 0132, Until Discontinu ed, PILLO, Blood Glucose < or = 70 mg/dL and patient is NPO, unable to swallow or has mental changes. [facility] dextrose 50 % in water (D50W) injection 25 mL 08-27 07:32: 33 Yes 25mL 25 mL, Slow IV Push, PRN, Starting on Sat08/27/23 at 0132, Until Discontinu ed, PILLO, Blood Glucose < or = 70 mg/dL and patient is NPO, unable to swallow or has mental status changes. [facility] iopamidol (ISOVUE 370-500 mL) injection 100 mL 08-27 07:30: 00 08-27 07:30 :00 No [id number] 100mL 100 mL, Intravenou s, ONCE, 1 dose, On Sat08/27/23 at 0130, Routine [facility] morpHINE (4 mg/mL) injection 4 mg 08-27 06:30: 00 08-27 06:24 :00 No 4mg 4 mg, Slow IV Push, ONCE, 1 dose, On Sat08/27/23 at 0030, STAT [facility] NaCl 0.9% (NS) IV infusion 1,000 mL 08-27 06:15: 00 08-27 07:38 :01 No 1000mL at 999 mL/hr, Intravenou s, CONTINUOUS , Starting on Sat08/27/23 at 0015, Until Sat08/27/23 at 0138, Routine [facility] ondansetron (ZOFRAN (PF)) injection 4 mg 08-27 05:15: 00 08-27 05:09 :00 No 4mg 4 mg, Slow IV Push, ONCE, 1 dose, On Sat08/26/23 at 2315, PILLO [facility] morpHINE (4 mg/mL) injection 4 mg 08-27 05:15: 00 08-27 05:11 :00 No 4mg 4 mg, Slow IV Push, ONCE, 1 dose, On Sat08/26/23 at 2315, STAT [facility] Escitalopra m Oxalate 5 MG Escitalopra m Oxalate 5 MG 2022-07 012 00:00: 00 No 1{table t} QD Escitalopr am Oxalate 5 MG Escitalopra m Oxalate 5 MG Escitalopra m Oxalate 5 MG 2022-07 0-12 00:00: 00 No 1{table t} QD Escitalopr am Oxalate 5 MG Escitalopra m Oxalate 5 MG Escitalopra m Oxalate 5 MG 2022-07 0-12 00:00: 00 No 1{table t} QD Escitalopr am Oxalate 5 MG Escitalopra m Oxalate 5 MG Escitalopra m Oxalate 5 MG 2022-07 0-12 00:00: 00 No 1{table t} QD Escitalopr am Oxalate 5 MG FENOFIBRATE ORAL 2022-07 0 14:53: 41 Yes 1{capsu le} Take 1 capsule by mouth in the morning. [facility] LOVAZA, omega-3-aci d ethyl esters, 1 gram capsule 2022-07 0 00:00: 00 05-25 04:59 :00 No [id number] 2g Take 2 capsules by mouth in the morning and 2 capsules in the evening. Do all this for 30 days. [facility] D10W 0.45% NaCl (1/2 NS) IV infusion 1,000 mL 2022-07 21:00: 00 Yes 1000mL at 100 mL/hr, IV Infusion, CONTINUOUS , Starting on Sat04/23/23 at 1600, Until Discontinu ed, Routine [facility] fenofibrate micronized (LOFIBRA) capsule 134 mg 2022-07 14:00: 00 Yes 134mg 134 mg, Oral, DAILY, First dose on Sat04/23/23 at 0900, Until Discontinu ed, Routine [facility] magnesium sulfate in water 2 gram/50 mL (4 %) infusion 2 g 2022-07 13:45: 00 04-23 19:44 :00 No 2g 2 g, IV Piggyback, Administer over 60 Minutes, ONCE, 1 dose, On Sat04/23/23 at 0845, PILLO [facility] potassium chloride in water 10 mEq/100 mL RTU 10 mEq 2022-07 13:15: 00 04-23 17:48 :00 No 10meq 10 mEq, IV Piggyback, Q1H, 4 doses, First dose on Sat04/23/23 at 0815, Last dose on Sat04/23/23 at 1100, Administer over 60 Minutes, 100 mL [facility] ketorolac (TORADOL) injection 15 mg 2022-07 09:42: 13 04-25 09:41 :13 No 15mg 15 mg, Slow IV Push, PRN, Starting on Sat04/23/23 at 0442, Until Maryann 04/25/23 at 0441, Routine, Pain (scale 7-10) [facility] nicotine (NICODERM) 14 mg/24 hr patch 1 Patch 2022-07 01:30: 00 Yes 1{patch } 1 Patch, Topical, Administer over 24 Hours, Q24H, First dose on Sat04/22/23 at 2030, Until Discontinu ed, Routine [facility] D10W 0.45% NaCl (1/2 NS) IV infusion 1,000 mL 2022-07 01:30: 00 04-23 20:55 :36 No 1000mL at 150 mL/hr, IV Infusion, CONTINUOUS , Starting on Sat04/22/23 at 2030, Until Sat04/23/23 at 1555, Routine [facility] potassium chloride in water 10 mEq/100 mL RTU 10 mEq 2022-07 01:15: 00 04-23 08:43 :00 No 10meq 10 mEq, IV Piggyback, Q1H, 4 doses, First dose on Sat04/22/23 at 2015, Last dose on Sat04/22/23 at 2300, Administer over 60 Minutes, 100 mL [facility] LOVA[facility] (omega-3-ac id ethyl esters) capsule 2 g 2022-07 01:00: 00 Yes 2g 2 g, Oral, BID, First dose on Sat04/22/23 at 2000, Until Discontinu ed, Routine [facility] D10W 0.45% NaCl (1/2 NS) IV infusion 1,000 mL 2022-07 00:15: 00 04-23 01:22 :18 No 1000mL at 100 mL/hr, IV Infusion, CONTINUOUS , Starting on Sat04/22/23 at 1915, Until Sat04/22/23 at 2021, Routine [facility] FENTanyl PF (SUBLIMAZE (PF)) injection 50 mcg 2022-07 00:00: 00 04-22 22:56 :00 No 50ug 50 mcg, Slow IV Push, ONCE, 1 dose, On Sat04/22/23 at 1900, [facility]ine [facility] morpHINE 30 mg/30 mL (fixed dose) [employer] injection 2022-07 23:45: 00 Yes Patient Bolus Dose: 0.5 mg
Lock out Interval: 10 Minutes
Basal Rate: 0 mg/hr
F our Hour Dose Limit: 12 mg
Intr avenous, 30 mL, CONTINUOUS , Starting on Sat04/22/23 at 1845, Until Discontinu ed [facility] naloxone (NARCAN) injection 0.1 mg 2022-07 22:43: 29 Yes .1mg 0.1 mg, Slow IV Push, SEE-INSTRU CTIONS, Starting on Sat04/22/23 at 1743, Until Discontinu ed, Routine [facility] enoxaparin (LOVENOX) injection 40 mg 2022-07 22:00: 00 Yes 40mg 40 mg, Subcutaneo us, DAILY, First dose on Sat04/22/23 at 1700, Until Discontinu ed, Routine [facility] D5W 0.45% NaCl (1/2NS) 1 L + KCL 20 mEq 2022-07 22:00: 00 04-22 22:45 :53 No IV Infusion, at 150 mL/hr, CONTINUOUS , Starting on Sat04/22/23 at 1700, Until Sat04/22/23 at 1745, Routine [facility] insulin regular in 0.9 % NaCl (MYXREDLIN) 100 unit/100 mL (1 unit/mL) RTU IV infusion 2022-07 21:30: 00 04-23 15:13 :11 No .1U/kg/ h 0.1 Units/kg/h r ?93 kg (9.3 mL/hr), IV Infusion, CONTINUOUS , Starting on Sat04/22/[address] insulin infusion at 0.1 u/kg/hr and keep fixed at that rate. Hold insulin infusion x 1 hour and NHO if BG < 140 mg/dL for instructio ns to increase dextrose fluids. Restart once BG >/= 140 mg/dL
[facility] ketorolac (TORADOL) injection 30 mg 2022-07 20:29: 15 04-25 20:28 :15 No 30mg 30 mg, Slow IV Push, Q8HPRN, Starting on Sat04/22/23 at 1529, Until Maryann 04/25/23 at 1528, Routine, breakthrou gh pain [facility] FENTanyl PF (SUBLIMAZE (PF)) injection 50 mcg 2022-07 20:25: 59 04-22 23:51 :46 No 50ug 50 mcg, Slow IV Push, Q3HPRN, Starting on Sat04/22/23 at 1525, Until Sat04/22/23 at 1851, Routine, Pain (scale 7-10) [facility] glucagon (GLUCAGEN DIAGNOSTIC KIT) injection 1 mg 2022-07 20:20: 59 Yes 1mg 1 mg, Intramuscu lar, PRN, Starting on Sat04/22/23 at 1520, Until Discontinu ed, PILLO, Blood Glucose < or = 70 mg/dL and patient is NPO, unable to swallow or has mental changes. [facility] dextrose 50 % in water (D50W) injection 25 mL 2022-07 20:20: 59 Yes 25mL 25 mL, Slow IV Push, PRN, Starting on Sat04/22/23 at 1520, Until Discontinu ed, PILLO, Blood Glucose < or = 70 mg/dL and patient is NPO, unable to swallow or has mental status changes. [facility] NaCl 0.9% (NS) bolus infusion 2022-07 19:30: 00 04-22 20:31 :00 No 15mL/kg /h 15 mL/kg/hr ?93 kg (1,395 mL/hr), IV Infusion, ONCE, 1 dose, On Sat04/22/23 at 1430, STAT [facility] NaCl 0.9% (NS) bolus infusion 500 mL 2022-07 17:15: 00 04-22 20:15 :00 No 500mL at 999 mL/hr, 500 mL, IV Infusion, ONCE, 1 dose, On Sat04/22/23 at 1215, STAT [facility] FENTanyl PF (SUBLIMAZE (PF)) injection 50 mcg 2022-07 17:15: 00 04-22 18:23 :00 No 50ug 50 mcg, Slow IV Push, ONCE, 1 dose, On Sat04/22/23 at 1215, Routine [facility] FENTanyl PF (SUBLIMAZE (PF)) injection 50 mcg 4-16 14:24: 07 Yes 50ug 50 mcg, Slow IV Push, Q3HPRN, Starting on Sat11/04/22 at 0924, Until Discontinu ed, Routine, Pain (scale 7-10) [facility] fenofibrate micronized (LOFIBRA) capsule 134 mg 11-04 14:00: 00 Yes 134mg 134 mg, Oral, DAILY, First dose on Sat11/04/22 at 0900, Until Discontinu ed, Routine [facility] enoxaparin (LOVENOX) injection 40 mg 11-04 14:00: 00 Yes 40mg 40 mg, Subcutaneo us, DAILY, First dose on Sat11/04/22 at 0900, Until Discontinu ed, Routine [facility] D10W 0.45% NaCl (1/2 NS) IV infusion 1,000 mL 11-04 13:00: 00 Yes 1000mL at 125 mL/hr, IV Infusion, CONTINUOUS , Starting on Sat11/04/22 at 0800, Until Discontinu ed, Routine [facility] LOVAZA (omega-3-ac id ethyl esters) capsule 2 g 11-04 13:00: 00 Yes 2g 2 g, Oral, BID, First dose on Sat11/04/22 at 0800, Until Discontinu ed, Routine [facility] HYDROmorpho ne (DILAUDID) injection 1 mg 11-04 11:30: 00 11-04 13:24 :31 No 1mg 1 mg, Slow IV Push, Q3HPRN, Starting on Sat11/04/22 at 0630, Until Sat11/04/22 at 0824, Routine, Pain (scale 7-10)
U se approved by (Faculty): INT[facility]ARE [facility] insulin regular in 0.9 % NaCl (MYXREDLIN) 100 unit/100 mL (1 unit/mL) RTU IV infusion 11-04 10:15: 00 Yes .1U/kg/ h 0.1 Units/kg/h r ?90.9 kg (9.09 mL/hr), IV Infusion, CONTINUOUS , Starting on Sat11/04/[address] insulin infusion at 0.1 u/kg/hr and keep fixed at that rate. Hold insulin infusion x 1 hour and NHO if BG < 140 mg/dL for instructio ns to increase dextrose fluids. Restart once BG >/= 140 mg/dL
[facility] glucagon (GLUCAGEN DIAGNOSTIC KIT) injection 1 mg 11-04 09:14: 31 Yes 1mg 1 mg, Intramuscu lar, PRN, Starting on Sat11/04/22 at 0414, Until Discontinu ed, PILLO, Blood Glucose < or = 70 mg/dL and patient is NPO, unable to swallow or has mental changes. [facility] dextrose 50 % in water (D50W) injection 25 mL 11-04 09:14: 31 Yes 25mL 25 mL, Slow IV Push, PRN, Starting on Sat11/04/22 at 0414, Until Discontinu ed, PILLO, Blood Glucose < or = 70 mg/dL and patient is NPO, unable to swallow or has mental status changes. [facility] D10W 0.45% NaCl (1/2NS) IV infusion 11-04 08:00: 00 11-04 07:21 :00 No at 125 mL/hr, IV Infusion, ONCE, 1 dose, On Sat11/04/22 at 0300 [facility] HYDROmorpho ne (DILAUDID) injection 1 mg 11-04 07:30: 00 11-04 06:51 :00 No 1mg 1 mg, Slow IV Push, ONCE, 1 dose, On Sat11/04/22 at 0230, Routine
Use approved by (Faculty): INTENSIVE CARE UNIT [facility] D5W 0.45% NaCl (1/2NS) IV infusion 1,000 mL 11-04 05:15: 00 11-04 07:21 :00 No 1000mL at 125 mL/hr, 1,000 mL, IV Infusion, ONCE, 1 dose, On Sat11/04/22 at 0015, Routine [facility] insulin regular in 0.9 % NaCl (MYXREDLIN) 100 unit/100 mL (1 unit/mL) RTU IV infusion 11-04 05:12: 00 11-04 09:18 :23 No .1U/kg/ h 0.1 Units/kg/h r ?93 kg (9.3 mL/hr), IV Infusion, TITRATE, Parameters in Admin. Instr., Starting on 11/04/22 at 0012
PL EASE USE NORMOGLYCE YAMILA
[facility] diphenhydrA MINE (BENADRYL) injection 25 mg 11-04 04:24: 22 Yes 25mg 25 mg, Intravenou s, Q4HPRN, Starting on 11/03/22 at 2324, Until Discontinu ed, Routine, Itching [facility] HYDROmorpho ne (DILAUDID) injection 1 mg 11-04 04:24: 14 11-04 11:29 :06 No 1mg 1 mg, Slow IV Push, Q4HPRN, Starting on 11/03/22 at 2324, Until 11/04/22 at 0629, Routine, Pain (scale 7-10)
U se approved by (Faculty): INTENSIVE CARE UNIT [facility] ketorolac (TORADOL) injection 15 mg 11-04 04:17: 35 Yes 15mg 15 mg, Intramuscu lar, Q6HPRN, Starting on 11/03/22 at 2317, Until Discontinu ed, Routine, Pain (scale 4-6) [facility] dextrose 10% (D10W) bolus infusion 250 mL 11-04 04:12: 08 Yes 250mL 250 mL, IV Infusion, PRN - SEE INSTRUCTIO NS, Administer over 60 Minutes, Other, If blood [...] blood glucose is < 80 mg/dL, repeat.
[facility] glucagon (GLUCAGEN DIAGNOSTIC KIT) injection 1 mg 11-04 04:12: 00 Yes 1mg 1 mg, Intramuscu lar, PRN, Starting on 11/03/22 at 2312, Until Discontinu ed, PILLO, Blood Glucose < or = 70 mg/dL and patient is NPO, unable to swallow or has mental changes. [facility] ketorolac (TORADOL) injection 30 mg 11-04 03:00: 00 11-04 02:13 :00 No 30mg 30 mg, Slow IV Push, ONCE, 1 dose, On 11/03/22 at 2200, PILLO [facility] FENTanyl PF (SUBLIMAZE (PF)) injection 100 mcg 11-04 01:45: 00 11-04 00:51 :00 No 100ug 100 mcg, Slow IV Push, ONCE, 1 dose, On 11/03/22 at 2045, STAT [facility] iopamidol (ISOVUE 370-500 mL) injection 80 mL 11-04 01:05: 00 11-04 01:30 :00 No [id number] 80mL 80 mL, Intravenou s, ONCE, 1 dose, On 11/03/22 at 2030, Routine [facility] FENTanyl PF (SUBLIMAZE (PF)) injection 75 mcg 11-04 00:45: 00 11-03 23:51 :00 No 75ug 75 mcg, Slow IV Push, ONCE, 1 dose, On 11/03/22 at 1945, Routine [facility] maalox:diph enhydrAMINE :lidocaine 2 % viscous 1:1:1 (FIRST-MOUT HWASH BLM) oral suspension 15 mL 11-04 00:00: 00 11-03 23:58 :00 No 15mL 15 mL, Oral, ONCE, 1 dose, On 4/15/23 at 1900, PILLO [facility] NaCl 0.9% (NS) bolus infusion 1,000 mL 11-03 23:15: 00 11-03 23:47 :00 No 1000mL at 999 mL/hr, 1,000 mL, IV Infusion, ONCE, 1 dose, On 11/03/22 at 1815, STAT [facility] metoclopram heidi HCl (REGLAN) injection 10 mg 11-03 22:30: 00 11-03 22:40 :00 No 10mg 10 mg, Slow IV Push, ONCE, 1 dose, On 11/03/22 at 1730, PILLO [facility] rosuvastati n (CRESTOR) tablet 40 mg 03-29 02:00: 00 Yes 40mg 40 mg, Oral, QHS, First dose on Sat03/28/22 at 2100, Until Discontinu ed, Routine [facility] morphine ER (MS CONTIN) 12 hr tablet 15 mg 03-28 20:30: 00 Yes 15mg 15 mg, Oral, Q12H, First dose on Sat03/28/22 at 1530, Until Discontinu ed, Routine [facility] lactated ringers IV infusion 1,000 mL 03-28 15:00: 00 Yes 1000mL at 150 mL/hr, 1,000 mL, IV Infusion, CONTINUOUS , Starting on Sat03/28/22 at 1000, Until Discontinu ed, Routine [facility] buPROPion (WELLBUTRIN ) tablet 100 mg 03-28 14:30: 00 Yes 100mg 100 mg, Oral, BID, First dose on Sat03/28/22 at 0930, Until Discontinu ed, Routine [facility] pantoprazol e (PROTONIX) EC tablet 40 mg 03-28 14:00: 00 Yes 40mg 40 mg, Oral, DAILY, First dose on Sat03/28/22 at 0900, Until Discontinu ed, [facility] (NIC[facility]ER[facility] 21 mg/24 hr patch 1 Patch 03-28 14:00: 00 Yes 1{patch } 1 Patch, Topical, Administer over 24 Hours, DAILY, First dose on Sat03/28/22 at 0900, Until Discontinu ed, Routine [facility] fenofibrate micronized (LOFIBRA) capsule 134 mg 03-28 14:00: 00 Yes 134mg 134 mg, Oral, DAILY, First dose on Sat03/28/22 at 0900, Until Discontinu ed, Routine [facility] ergocalcife rol (vitamin d2) (CALCIFEROL ) capsule 50,000 Units 03-28 14:00: 00 Yes [id number] 50,000 Units, Oral, QWEEKLY, First dose on Sat03/28/22 at 0900, Until Discontinu ed, Routine [facility] docusate (COLACE) capsule 100 mg 03-28 14:00: 00 Yes 100mg 100 mg, Oral, DAILY, First dose on Sat03/28/22 at 0900, Until Discontinu ed, Routine [facility] enoxaparin (LOVENOX) injection 40 mg 03-28 14:00: 00 Yes 40mg 40 mg, Subcutaneo us, DAILY, First dose on Sat03/28/22 at 0900, Until Discontinu ed, Routine [facility] diphenhydrA MINE (BENADRYL) tablet 25 mg 03-28 13:57: 47 Yes 25mg 25 mg, Oral, Q6HPRN, Starting on Sat03/28/22 at 0857, Until Discontinu ed, Routine, Mild Rash, Itching [facility] FENTanyl PF (SUBLIMAZE (PF)) injection 50 mcg 03-28 13:57: 36 Yes 50ug 50 mcg, Slow IV Push, Q4HPRN, Starting on Sat03/28/22 at 0857, Until Discontinu ed, Routine, Pain (scale 7-10) [facility] lipase-prot ease-amylas e (PANCREAZE) 16,800-56,8 00- 98,400 unit capsule 1 capsule 03-28 13:00: 00 03-31 12:59 :00 No 1{capsu le} 1 capsule, Oral, TID MEALS, 9 doses, First dose on Sat03/28/22 at 0800, Last dose on Sat03/30/22 at 1700, Routine [facility] methylpredn isolone sod succ (SOLU-MEDRO L) injection 60 mg 03-28 09:00: 00 03-28 08:12 :00 No 60mg 60 mg, Intravenou s, ONCE, 1 dose, On Sat03/28/22 at 0400, 2 mL [facility] piperacilli n-tazobacta m (ZOSYN) 3.375 g in NaCl 0.9% (NS) 50 mL MINI-BAG 03-28 05:30: 00 03-31 05:29 :00 No 3.375g 3.375 g, IV Piggyback, Q8H ABX, 9 doses, First dose on Sat03/28/22 at 0030, Last dose on Sat03/30/22 at 1630, Administer over 4 Hours, 50 mL
Reas on for Anti-Infec tive: Documented Infection< br>Documen kami Infection Site: Abdominal< br>Duratio n of Therapy: 10 days [facility] insulin regular in 0.9 % NaCl (MYXREDLIN) 100 unit/100 mL (1 unit/mL) RTU IV infusion 03-28 04:59: 19 03-28 11:58 :19 No 2U/h 2 Units/hr (2 mL/hr), IV Infusion, TITRATE, Parameters in Admin. Instr., Starting on Sat03/27/22 at 2359, For 7 [...] MG/DL: Stop insulin infusion, notify ICU warehouse operations associate, and treat using hypoglycem ia protocol. Once BG &n bsp;greate r than 80 mg/dL start monitoring glucose every hour. Restart Insulin infusion at HALF of prior rate only when TWO consecutiv e BG levels 1 hour apart are at or above 180 mg/dL. &nbs p;FOR BLOOD GLUCOSE BETWEEN 71-139 MG/DL:&amp ;nbsp;&nbs p;Stop insulin and continue to check BG every [...] change is needed.&nb sp; N otify ICU Casting Machine Operator Helper if BG remains above 220 mg/dL for longer than 4 hours despite treatment.
[facility] D5W 0.9% NaCl (NS) 1 L + KCL 20 mEq 03-28 04:15: 00 03-28 13:59 :07 No IV Infusion, at 125 mL/hr, CONTINUOUS , Starting on Sat03/27/22 at 2315, Until Sat03/28/22 at 0859, Routine [facility] glucagon (GLUCAGEN DIAGNOSTIC KIT) injection 1 mg 03-28 03:59: 19 Yes 1mg 1 mg, Intramuscu lar, PRN, Starting on Sat03/27/22 at 2259, Until Discontinu ed, PILLO, Blood Glucose < or = 70 mg/dL and patient is unable to swallow or has mental changes. [facility] dextrose 50 % in water (D50W) injection 25 mL 03-28 03:59: 19 Yes 25mL 25 mL, Slow IV Push, PRN, Starting on Sat03/27/22 at 2259, Until Discontinu ed, PILLO, Blood Glucose < or = 70 mg/dL and patient is unable to swallow or has mental status changes. [facility] ondansetron (ZOFRAN (PF)) injection 4 mg 03-28 03:56: 38 Yes 4mg 4 mg, Slow IV Push, Q6HPRN, Starting on Sat03/27/22 at 2256, Until Discontinu ed, Routine, Nausea and Vomiting (N/V) [facility] morpHINE (4 mg/mL) injection 4 mg 03-28 03:56: 11 03-28 13:59 :07 No 4mg 4 mg, Slow IV Push, Q4HPRN, Starting on Sat03/27/22 at 2256, Until Sat03/28/22 at 0859, Routine, Pain (scale 7-10) [facility] acetaminoph en (TYLENOL) tablet 650 mg 03-28 03:55: 44 Yes 650mg 650 mg, Oral, Q6HPRN, Starting on Sat03/27/22 at 2255, Until Discontinu ed, Routine, Pain (scale 1-3) [facility] ondansetron (ZOFRAN (PF)) injection 4 mg 03-28 01:01: 00 03-28 01:02 :00 No 4mg 4 mg, Slow IV Push, ONCE, 1 dose, On Sat03/27/22 at 2014, PILLO [facility] morpHINE (4 mg/mL) injection 4 mg 03-28 01:01: 00 03-28 01:02 :00 No 4mg 4 mg, Slow IV Push, ONCE, 1 dose, On Sat03/27/22 at 2014, STAT [facility] iopamidol (ISOVUE 370-500 mL) injection 65 mL 03-27 23:15: 00 03-27 23:15 :00 No [id number] 65mL 65 mL, Intravenou s, ONCE, 1 dose, On Sat03/27/22 at 1815, Routine [facility] morpHINE (4 mg/mL) injection 4 mg 03-27 22:15: 00 03-27 22:05 :00 No 4mg 4 mg, Slow IV Push, ONCE, 1 dose, On Sat03/27/22 at 1715, STAT [facility] ketorolac (TORADOL) injection 30 mg 03-27 21:45: 00 03-27 20:42 :00 No 30mg 30 mg, Slow IV Push, ONCE, 1 dose, [facility] Sat03/27/22 at 1645[facility] 4 mg 03-27 20:45: 00 03-27 20:42 :00 No 4mg 4 mg, Slow IV Push, ONCE, 1 dose, On Sat03/27/22 at 1545, PILLO [facility] rosuvastati n 40 mg tablet 03-27 00:00: 00 11-04 00:00 :00 No [id number] 40mg Take 1 tablet by mouth at bedtime. [facility] icosapent ethyL 1 gram capsule 02-17 00:00: 00 Yes [id number] 1g Take 1 capsule by mouth in the morning and 1 capsule in the evening. [facility] icosapent ethyL 1 gram capsule 02-17 00:00: 11-04 00:00 :00 No [id number] TAKE 2 CAPSULES BY MOUTH TWICE DAILY WITH FOOD. SWALLOW WHOLE AND DO NOT CHEW OR OPEN OR DISSOLVE OR CRUSH [facility] Econazole Nitrate 1 % Econazole Nitrate 1 % 01-23 00:00: 00 02-06 00:00 :00 No 1{appli cation} BID Econazole Nitrate 1 % Acetaminoph en-Codeine 300-30 MG Acetaminoph en-Codeine 300-30 MG 01-05 00:00: 00 01-15 00:00 :00 No 1{table t_as_ne eded} TID Acetaminop hen-Codein e 300-30 MG DULoxetine HCl 20 MG DULoxetine HCl 20 MG 01-03 00:00: 00 No 1{capsu le} QD DULoxetine HCl 20 MG DULoxetine HCl 20 MG DULoxetine HCl 20 MG 01-03 00:00: 00 No 1{capsu le} QD DULoxetine HCl 20 MG Acetaminoph en-Codeine 300-30 MG Acetaminoph en-Codeine 300-30 MG 12-21 00:00: 00 12-31 00:00 :00 No 1{table t_as_ne eded} TID Acetaminop hen-Codein e 300-30 MG ergocalcife rol, vitamin d2, 1,250 mcg (50,000 unit) capsule 2020-07 0 00:00: 00 11-04 00:00 :00 No [id number] Take 1 capsule by mouth weekly. [facility] pantoprazol e (PROTONIX) 40 mg EC tablet 04-19 00:00: 00 Yes [id number] 40mg Take 1 tablet by mouth in the morning. [facility] buPROPion SR (WELLBUTRIN SR) 100 mg SR tablet 04-19 00:00: 00 11-04 00:00 :00 No [id number] 100mg Take 1 tablet by mouth 2 (two) times daily. [facility] lipase-prot ease-amylas e (CREON) 3,000-9,500 - 15,000 unit capsule 04-19 00:00: 00 11-04 00:00 :00 No [id number] 3000U Take 1 capsule by mouth 3 (three) times daily with meals as needed (Abdominal pain). [facility] fenofibrate micronized 134 mg capsule 04-19 00:00: 00 11-04 00:00 :00 No [id number] 134mg Take 1 capsule by mouth daily. [facility] nicotine 21 mg/24 hr patch 04-19 00:00: 00 11-04 00:00 :00 No [id number] 1{patch } Apply 1 Patch to area(s) daily. Apply 21mg patch daily x 6 weeks; then apply 14mg patch daily x 2 weeks; then apply 7mg patch daily x 2 weeks. Stop smoking on initiation of therapy [facility] atorvastati n 80 mg tablet 04-19 00:00: 00 03-27 00:00 :00 No [id number] 80mg Take 1 tablet by mouth at bedtime. [facility] nicotine 14 mg/24 hr patch 04-19 00:00: 00 03-27 00:00 :00 No [id number] 1{patch } Apply 1 Patch to area(s) every 24 (twenty-fo ur) hours. Apply 21mg patch daily x 6 weeks; then apply 14mf patch daily x 2 weeks; then apply 7mg patch daily x 2 weeks. Stop smoking on initiation of therapy [facility] nicotine 7 mg/24 hr patch 04-19 00:00: 00 03-27 00:00 :00 No [id number] 1{patch } Apply 1 Patch to area(s) every 24 (twenty-fo ur) hours. Apply 21mg patch daily x 6 weeks; then apply 14mg patch daily x 2 weeks; then apply 7mg patch daily x 2 weeks. Stop smoking on initiation of therapy [facility] ibuprofen 800 mg tablet Take 1 tablet 3 times a day by oral route. ibuprofen 800 mg tablet Take 1 tablet 3 times a day by oral route. No 1 TID ibuprofen 800 mg tablet Take 1 tablet 3 times a day by oral route. [facility] silver sulfadiazin e 1 % topical cream APPLY A 1/16 INCH (1.5 MM) THICK LAYER TO ENTIRE BURN AREA BY TOPICALROUT E 2 TIMES PER DAY silver sulfadiazin e 1 % topical cream APPLY A 1/16 INCH (1.5 MM) THICK LAYER TO ENTIRE BURN AREA BY TOPICALROUT E 2 TIMES PER DAY No silver sulfadiazi ne 1 % topical cream APPLY A 1/16 INCH (1.5 MM) THICK LAYER TO ENTIRE BURN AREA BY TOPICALROU TE 2 TIMES PER DAY [facility] Pantoprazol e Sodium 40 MG Pantoprazol e Sodium 40 MG No 1{table t} QD Pantoprazo le Sodium 40 MG Fenofibrate 134 MG Fenofibrate 134 MG No 1{capsu le_with _a_meal } QD Fenofibrat e 134 MG Atorvastati n Calcium 80 MG Atorvastati n Calcium 80 MG No 1{table t} QD Atorvastat in Calcium 80 MG Fenofibrate 134 MG Fenofibrate 134 MG No 1{capsu le_with _a_meal } QD Fenofibrat e 134 MG Pantoprazol e Sodium 40 MG Pantoprazol e Sodium 40 MG No 1{table t} QD Pantoprazo le Sodium 40 MG Atorvastati n Calcium 80 MG Atorvastati n Calcium 80 MG No 1{table t} QD Atorvastat in Calcium 80 MG Creon [id number] UNIT Creon [phone] UNIT No Creon [id number] UNIT Icosapent Ethyl 1 GM Icosapent Ethyl 1 GM No 2{capsu les_wit h_meals } BID Icosapent Ethyl 1 GM Atorvastati n Calcium 80 MG Atorvastati n Calcium 80 MG No 1{table t} QD Atorvastat in Calcium 80 MG Pantoprazol e Sodium 40 MG Pantoprazol e Sodium 40 MG No 1{table t} QD Pantoprazo le Sodium 40 MG Fenofibrate 134 MG Fenofibrate 134 MG No 1{capsu le_with _a_meal } QD Fenofibrat e 134 MG Icosapent Ethyl 1 GM Icosapent Ethyl 1 GM No 2{capsu les_wit h_meals } BID Icosapent Ethyl 1 GM Creon [id number] UNIT Creon [phone] UNIT No TID Creon 4143-5593 UNIT DULoxetine HCl 20 MG DULoxetine HCl 20 MG No 1{capsu le} QD DULoxetine HCl 20 MG Pantoprazol e Sodium 40 MG Pantoprazol e Sodium 40 MG No 1{table t} QD Pantoprazo le Sodium 40 MG DULoxetine HCl 40 MG DULoxetine HCl 40 MG No 1{capsu le} QD DULoxetine HCl 40 MG Creon [id number] UNIT Creon [phone] UNIT No TID Creon 1109-3239 UNIT Icosapent Ethyl 1 GM Icosapent Ethyl 1 GM No 2{capsu les_wit h_meals } BID Icosapent Ethyl 1 GM Fenofibrate 134 MG Fenofibrate 134 MG No 1{capsu le_with _a_meal } QD Fenofibrat e 134 MG Atorvastati n Calcium 80 MG Atorvastati n Calcium 80 MG No 1{table t} QD Atorvastat in Calcium 80 MG Atorvastati n Calcium 80 MG Atorvastati n Calcium 80 MG No 1{table t} QD Atorvastat in Calcium 80 MG Pantoprazol e Sodium 40 MG Pantoprazol e Sodium 40 MG No 1{table t} QD Pantoprazo le Sodium 40 MG DULoxetine HCl 20 MG DULoxetine HCl 20 MG No 1{capsu le} QD DULoxetine HCl 20 MG Fenofibrate 134 MG Fenofibrate 134 MG No 1{capsu le_with _a_meal } QD Fenofibrat e 134 MG Icosapent Ethyl 1 GM Icosapent Ethyl 1 GM No 2{capsu les_wit h_meals } BID Icosapent Ethyl 1 GM Creon [id number] UNIT Creon 3499-5922 UNIT No TID Creon 8889-9794 UNIT Atorvastati n Calcium 80 MG Atorvastati n Calcium 80 MG No 1{table t} QD Atorvastat in Calcium 80 MG Pantoprazol e Sodium 40 MG Pantoprazol e Sodium 40 MG No 1{table t} QD Pantoprazo le Sodium 40 MG Creon [id number] UNIT Creon [phone] UNIT No TID Creon 5057-4773 UNIT Fenofibrate 134 MG Fenofibrate 134 MG No 1{capsu le_with _a_meal } QD Fenofibrat e 134 MG Icosapent Ethyl 1 GM Icosapent Ethyl 1 GM No 2{capsu les_wit h_meals } BID Icosapent Ethyl 1 GM DULoxetine HCl 20 MG DULoxetine HCl 20 MG No DULoxetine HCl 20 MG Atorvastati n Calcium 80 MG Atorvastati n Calcium 80 MG No 1{table t} QD Atorvastat in Calcium 80 MG Pantoprazol e Sodium 40 MG Pantoprazol e Sodium 40 MG No 1{table t} QD Pantoprazo le Sodium 40 MG Creon [phone] UNIT Creon 9400-3096 UNIT No TID Creon 4760-2634 UNIT Fenofibrate 134 MG Fenofibrate 134 MG No 1{capsu le_with _a_meal } QD Fenofibrat e 134 MG Icosapent Ethyl 1 GM Icosapent Ethyl 1 GM No 2{capsu les_wit h_meals } BID Icosapent Ethyl 1 GM DULoxetine HCl 20 MG DULoxetine HCl 20 MG No DULoxetine HCl 20 MG Atorvastati n Calcium 80 MG Atorvastati n Calcium 80 MG No 1{table t} QD Atorvastat in Calcium 80 MG Pantoprazol e Sodium 40 MG Pantoprazol e Sodium 40 MG No 1{table t} QD Pantoprazo le Sodium 40 MG Creon [id number] UNIT Creon [phone] UNIT No TID Creon 2040-8160 UNIT Fenofibrate 134 MG Fenofibrate 134 MG No 1{capsu le_with _a_meal } QD Fenofibrat e 134 MG Icosapent Ethyl 1 GM Icosapent Ethyl 1 GM No 2{capsu les_wit h_meals } BID Icosapent Ethyl 1 GM DULoxetine HCl 20 MG DULoxetine HCl 20 MG No DULoxetine HCl 20 MG Icosapent Ethyl 1 GM Icosapent Ethyl 1 GM No 2{capsu les_wit h_meals } BID Icosapent Ethyl 1 GM Pantoprazol e Sodium 40 MG Pantoprazol e Sodium 40 MG No 1{table t} QD Pantoprazo le Sodium 40 MG Creon 7931-2730 UNIT Creon 2837-8290 UNIT No TID Creon 9575-5760 UNIT Atorvastati n Calcium 80 MG Atorvastati n Calcium 80 MG No 1{table t} QD Atorvastat in Calcium 80 MG Escitalopra m Oxalate 20 MG Escitalopra m Oxalate 20 MG No 1{table t} QD Escitalopr am Oxalate 20 MG Escitalopra m Oxalate 10 MG Escitalopra m Oxalate 10 MG No Escitalopr am Oxalate 10 MG Fenofibrate 134 MG Fenofibrate 134 MG No 1{capsu le_with _a_meal } QD Fenofibrat e 134 MG Icosapent Ethyl 1 GM Icosapent Ethyl 1 GM No 2{capsu les_wit h_meals } BID Icosapent Ethyl 1 GM Pantoprazol e Sodium 40 MG Pantoprazol e Sodium 40 MG No 1{table t} QD Pantoprazo le Sodium 40 MG Creon [id number] UNIT Creon [phone] UNIT No TID Creon 3848-2697 UNIT Atorvastati n Calcium 80 MG Atorvastati n Calcium 80 MG No 1{table t} QD Atorvastat in Calcium 80 MG Escitalopra m Oxalate 20 MG Escitalopra m Oxalate 20 MG No 1{table t} QD Escitalopr am Oxalate 20 MG Escitalopra m Oxalate 10 MG Escitalopra m Oxalate 10 MG No Escitalopr am Oxalate 10 MG Fenofibrate 134 MG Fenofibrate 134 MG No 1{capsu le_with _a_meal } QD Fenofibrat e 134 MG Icosapent Ethyl 1 GM Icosapent Ethyl 1 GM No 2{capsu les_wit h_meals } BID Icosapent Ethyl 1 GM Pantoprazol e Sodium 40 MG Pantoprazol e Sodium 40 MG No 1{table t} QD Pantoprazo le Sodium 40 MG Creon [id number] UNIT Creon [phone] UNIT No TID Creon 5871-5267 UNIT Atorvastati n Calcium 80 MG Atorvastati n Calcium 80 MG No 1{table t} QD Atorvastat in Calcium 80 MG Escitalopra m Oxalate 20 MG Escitalopra m Oxalate 20 MG No 1{table t} QD Escitalopr am Oxalate 20 MG Escitalopra m Oxalate 10 MG Escitalopra m Oxalate 10 MG No Escitalopr am Oxalate 10 MG Fenofibrate 134 MG Fenofibrate 134 MG No 1{capsu le_with _a_meal } QD Fenofibrat e 134 MG Escitalopra m Oxalate 10 MG Escitalopra m Oxalate 10 MG No Escitalopr am Oxalate 10 MG Atorvastati n Calcium 80 MG Atorvastati n Calcium 80 MG No 1{table t} QD Atorvastat in Calcium 80 MG Fenofibrate 134 MG Fenofibrate 134 MG No 1{capsu le_with _a_meal } QD Fenofibrat e 134 MG Escitalopra m Oxalate 20 MG Escitalopra m Oxalate 20 MG No 1{table t} QD Escitalopr am Oxalate 20 MG Creon [id number] UNIT Creon [id number] UNIT No TID Creon [id number] UNIT HYDROcodone -Acetaminop hen 5-325 MG HYDROcodone -Acetaminop hen 5-325 MG No HYDROcodon e-Acetamin ophen 5-325 MG Pantoprazol e Sodium 40 MG Pantoprazol e Sodium 40 MG No 1{table t} QD Pantoprazo le Sodium 40 MG Icosapent Ethyl 1 GM Icosapent Ethyl 1 GM No 2{capsu les_wit h_meals } BID Icosapent Ethyl 1 GM Escitalopra m Oxalate 10 MG Escitalopra m Oxalate 10 MG No Escitalopr am Oxalate 10 MG Atorvastati n Calcium 80 MG Atorvastati n Calcium 80 MG No 1{table t} QD Atorvastat in Calcium 80 MG Fenofibrate 134 MG Fenofibrate 134 MG No 1{capsu le_with _a_meal } QD Fenofibrat e 134 MG Escitalopra m Oxalate 20 MG Escitalopra m Oxalate 20 MG No 1{table t} QD Escitalopr am Oxalate 20 MG Creon 1050-3341 UNIT Creon [id number] UNIT No TID Creon 7430-3053 UNIT HYDROcodone -Acetaminop hen 5-325 MG HYDROcodone -Acetaminop hen 5-325 MG No HYDROcodon e-Acetamin ophen 5-325 MG Pantoprazol e Sodium 40 MG Pantoprazol e Sodium 40 MG No 1{table t} QD Pantoprazo le Sodium 40 MG Icosapent Ethyl 1 GM Icosapent Ethyl 1 GM No 2{capsu les_wit h_meals } BID Icosapent Ethyl 1 GM fenofibrate fenofibrate No [facility] Immunizations Ordered Immunization Name Filled Immunization Name Date Status Comments Source Pneumococcal Polysaccharide, PPSV23 (PNEUMOVAX) 2019-04-05 00:00:00 Completed [facility] Pneumococcal Polysaccharide, PPSV23 (PNEUMOVAX) 2019-04-05 00:00:00 Completed [facility] Pneumococcal Polysaccharide, PPSV23 (PNEUMOVAX) 2019-04-05 00:00:00 Completed [facility] Pneumococcal Polysaccharide, PPSV23 (PNEUMOVAX) 2019-04-05 00:00:00 Completed [facility] Pneumococcal Polysaccharide, PPSV23 (PNEUMOVAX) 2019-04-05 00:00:00 Completed [facility] Pneumococcal Polysaccharide, PPSV23 (PNEUMOVAX) 2019-04-05 00:00:00 Completed [facility] Pneumococcal Polysaccharide, PPSV23 (PNEUMOVAX) Unknown Completed [facility] Pneumococcal Polysaccharide, PPSV23 (PNEUMOVAX) Unknown Completed [facility] Pneumococcal Polysaccharide, PPSV23 (PNEUMOVAX) Unknown Completed [facility] Pneumococcal Polysaccharide, PPSV23 (PNEUMOVAX) Unknown Completed [facility] Pneumococcal Polysaccharide, PPSV23 (PNEUMOVAX) Unknown Completed [facility] Pneumococcal Polysaccharide, PPSV23 (PNEUMOVAX) Unknown Completed [facility] Pneumococcal Polysaccharide, PPSV23 (PNEUMOVAX) Unknown Completed [facility] Pneumococcal Polysaccharide, PPSV23 (PNEUMOVAX) Unknown Completed [facility] Vital Signs Vital Name Observation Time Observation Value Comments S ource Body temperature 2023-11-19 00:46:00 37.11 Fallon [facility] Systolic blood pressure 2023-11-19 00:09:00 128 mm[Hg] [facility] Diastolic blood pressure 2023-11-19 00:09:00 101 mm[Hg] [facility] Heart rate 2023-11-19 00:09:00 75 /min [facility] Oxygen saturation in Arterial blood by Pulse oximetry 2023-11-19 00:09:00 100 /min [facility] Respiratory rate 2023-11-18 23:21:00 16 /min [facility] Body height 2023-11-18 21:20:00 175.3 cm [facility] Body weight 2023-11-18 21:20:00 92.987 kg [facility] BMI 2023-11-18 21:20:00 30.27 kg/m2 [facility] height 2023-10-23 08:00:00 69 [in_i] Commo n [facility] weight 2023-10-23 08:00:00 205 [lb_av] Comm on [facility] bmi 2023-10-23 08:00:00 30.27 kg/m2 Comm on [facility] height 2023-10-10 08:40:00 69 [in_i] Commo n [facility] weight 2023-10-10 08:40:00 205 [lb_av] Comm on [facility] bmi 2023-10-10 08:40:00 30.27 kg/m2 Comm on [facility] height 2023-09-30 13:20:00 69 [in_i] Commo n [facility] weight 2023-09-30 13:20:00 205 [lb_av] Comm on [facility] bmi 2023-09-30 13:20:00 30.27 kg/m2 Comm on [facility] Systolic blood pressure 2023-08-28 17:10:00 116 mm[Hg] [facility] Diastolic blood pressure 2023-08-28 17:10:00 78 mm[Hg] [facility] Heart rate 2023-08-28 17:10:00 81 /min [facility] Body temperature 2023-08-28 17:10:00 35.83 Fallon [facility] Oxygen saturation in Arterial blood by Pulse oximetry 2023-08-28 17:10:00 99 /min [facility] Respiratory rate 2023-08-28 12:09:00 16 /min [facility] Body weight 2023-08-28 10:00:00 92.488 kg [facility] BMI 2023-08-28 10:00:00 30.11 kg/m2 [facility] Body height 2023-08-27 08:37:00 175.3 cm [facility] height 2023-05-02 08:40:00 69 [in_i] Commo n [facility] weight 2023-05-02 08:40:00 205 [lb_av] Comm on [facility] bmi 2023-05-02 08:40:00 30.27 kg/m2 Comm on [facility] Systolic blood pressure 2023-04-24 17:00:00 142 mm[Hg] [facility] Diastolic blood pressure 2023-04-24 17:00:00 99 mm[Hg] [facility] Heart rate 2023-04-24 17:00:00 72 /min [facility] Body temperature 2023-04-24 17:00:00 36.5 Fallon [facility] Oxygen saturation in Arterial blood by Pulse oximetry 2023-04-24 17:00:00 97 /min [facility] Respiratory rate 2023-04-24 13:00:00 10 /min [facility] Body weight 2023-04-24 09:00:00 90.992 kg [facility] BMI 2023-04-24 09:00:00 29.62 kg/m2 [facility] Body height 2023-04-22 16:18:00 175.3 cm [facility] Systolic blood pressure 2022-11-04 15:00:00 111 mm[Hg] [facility] Diastolic blood pressure 2022-11-04 15:00:00 87 mm[Hg] [facility] Heart rate 2022-11-04 15:00:00 75 /min [facility] Respiratory rate 2022-11-04 15:00:00 20 /min [facility] Oxygen saturation in Arterial blood by Pulse oximetry 2022-11-04 15:00:00 94 /min [facility] Body temperature 2022-11-04 12:03:00 35.89 Fall[place] [facility] Body weight 2022-11-04 09:06:00 90.946 kg [facility] BMI 2022-11-04 09:06:00 29.61 kg/m2 [facility] Body height 2022-11-03 22:01:00 175.3 cm [facility] height 2022-09-06 11:00:00 69 [in_i] Commo n [facility] weight 2022-09-06 11:00:00 205 [lb_av] Comm on [facility] bmi 2022-09-06 11:00:00 30.27 kg/m2 Comm on [facility] height 2022-05-16 14:00:00 69 [in_i] Commo n [facility] weight 2022-05-16 14:00:00 205 [lb_av] Comm on [facility] bmi 2022-05-16 14:00:00 30.27 kg/m2 Comm on [facility] Systolic blood pressure 2022-03-29 15:00:00 107 mm[Hg] [facility] Diastolic blood pressure 2022-03-29 15:00:00 65 mm[Hg] [facility] Heart rate 2022-03-29 15:00:00 68 /min [facility] Respiratory rate 2022-03-29 15:00:00 13 /min [facility] Oxygen saturation in Arterial blood by Pulse oximetry 2022-03-29 15:00:00 97 /min [facility] Body temperature 2022-03-29 14:36:00 36.28 Fall[place] [facility] Body weight 2022-03-29 08:34:00 91.989 kg [facility] BMI 2022-03-29 08:34:00 29.95 kg/m2 [facility] Body height 2022-03-28 01:50:00 175.3 cm [facility] Systolic blood pressure 2022-03-27 14:31:00 131 mm[Hg] [facility] Diastolic blood pressure 2022-03-27 14:31:00 85 mm[Hg] [facility] Heart rate 2022-03-27 14:31:00 81 /min [facility] Body height 2022-03-27 14:31:00 175.3 cm [facility] Body weight 2022-03-27 14:31:00 92.534 kg [facility] BMI 2022-03-27 14:31:00 30.13 kg/m2 [facility] Oxygen saturation in Arterial blood by Pulse oximetry 2022-03-27 14:31:00 96 /min [facility] height 2022-01-03 15:00:00 69.00 [in_i] Com [facility] weight 2022-01-03 15:00:00 203.6 [lb_av] [facility] temperature 2022-01-03 15:00:00 98.3 [degF] Com [facility] bmi 2022-01-03 15:00:00 30.06 kg/m2 Comm on [facility] oximetry 2022-01-03 15:00:00 98 % Commo n [facility] respiratory rate 2022-01-03 15:00:00 16 /min [facility] blood pressure systolic 2022-01-03 15:00:00 136 mm[Hg] [facility] blood pressure diastolic 2022-01-03 15:00:00 78 mm[Hg] [facility] height 2021-12-13 09:20:00 69.00 [in_i] Com [facility] weight 2021-12-13 09:20:00 207.8 [lb_av] Co [facility] temperature 2021-12-13 09:20:00 97.5 [degF] Com [facility] bmi 2021-12-13 09:20:00 30.68 kg/m2 Comm on [facility] oximetry 2021-12-13 09:20:00 98 % Commo n [facility] respiratory rate 2021-12-13 09:20:00 17 /min [facility] blood pressure systolic 2021-12-13 09:20:00 132 mm[Hg] Common [facility] blood pressure diastolic 2021-12-13 09:20:00 77 mm[Hg] [facility] Body Weight 2021-02-09 00:00:00 3344 [oz_av] Arturo tagorda [facility] BP Diastolic 2021-02-09 00:00:00 83 mm[Hg] Mat agorda [facility] BP Systolic 2021-02-09 00:00:00 127 mm[Hg] Kelly josh [facility] Procedures Procedure Date / Time Performed Performing Clinician Source CT ABDOMEN PELVIS W CONTRAST 2023-11-18 23:13:11 [facility] URINALYSIS 2023-11-18 22:08:00 [facility] LIPASE 2023-11-18 22:06:00 [facility] COMP. METABOLIC PANEL (63558) 2023-11-18 22:06:00 [facility] LIPID PANEL ([id number])(TOTAL CHOLESTEROL, TRIGLYCERIDES, HDL) 2023-11-18 22:06:00 [facility] CBC WITH DIFF 2023-11-18 22:06:00 [facility] POCT GLUCOSE (AUTOMATED) 2023-08-28 13:53:00 Herrera Espinoza [facility] POCT GLUCOSE (AUTOMATED) 2023-08-28 12:07:00 Herrera Espinoza [facility] POCT GLUCOSE (AUTOMATED) 2023-08-28 11:05:00 Herrera Espinoza [facility] POCT GLUCOSE (AUTOMATED) 2023-08-28 10:07:00 Herrera Espinoza [facility] POCT GLUCOSE (AUTOMATED) 2023-08-28 09:05:00 Genaro, D [facility] POCT GLUCOSE (AUTOMATED) 2023-08-28 08:04:00 Herrera Espinoza [facility] POCT GLUCOSE (AUTOMATED) 2023-08-28 07:16:00 Herrera Espinoza [facility] TRIGLYCERIDES 2023-08-28 06:22:00 Ifeoma Espinoza [facility] BASIC METABOLIC PANEL (NA, K, CL, CO2, GLUCOSE, BUN, CREATININE, CA) 2023-08-28 06:22:00 Ifeoma Espinoza [facility] POCT GLUCOSE (AUTOMATED) 2023-08-28 06:22:00 Herrera Espinoza [facility] POCT GLUCOSE (AUTOMATED) 2023-08-28 04:58:00 Herrera Espinoza [facility] POCT GLUCOSE (AUTOMATED) 2023-08-28 04:06:00 Herrera Espinoza [facility] POCT GLUCOSE (AUTOMATED) 2023-08-28 03:00:00 Herrera Espinoza [facility] POCT GLUCOSE (AUTOMATED) 2023-08-28 02:06:00 Herrera Espinoza [facility] POCT GLUCOSE (AUTOMATED) 2023-08-28 01:15:00 Herrera Espinoza [facility] POCT GLUCOSE (AUTOMATED) 2023-08-27 23:41:00 Herrera Espinoza [facility] POCT GLUCOSE (AUTOMATED) 2023-08-27 21:00:00 Herrera Espinoza [facility] POCT GLUCOSE (AUTOMATED) 2023-08-27 19:28:00 Herrera Espinoza [facility] POCT GLUCOSE (AUTOMATED) 2023-08-27 18:23:00 Herrera Espinoza [facility] POCT GLUCOSE (AUTOMATED) 2023-08-27 17:21:00 Herrera Espinoza [facility] POCT GLUCOSE (AUTOMATED) 2023-08-27 16:19:00 Genaro [facility] POCT GLUCOSE (AUTOMATED) 2023-08-27 15:09:00 Herrera Espinoza [facility] MAGNESIUM 2023-08-27 14:29:00 Ifeoma Espinoza [facility] HEPATIC FUNCTION PANEL ([id number]) (ALB,T.PRO,BILI T,BU/BC,ALT,AST,ALK PHOS) 2023-08-27 14:29:00 Ifeoma Espinoza [facility] BASIC METABOLIC PANEL (NA, K, CL, CO2, GLUCOSE, BUN, CREATININE, CA) 2023-08-27 14:29:00 Ifeoma Espinoza [facility] LIPID PANEL ([id number])(TOTAL CHOLESTEROL, TRIGLYCERIDES, HDL) 2023-08-27 14:29:00 Ifeoma Espinoza [facility] LOW-DENSITY LIPOPROTEIN, DIRECT 2023-08-27 14:29:00 [facility] POCT GLUCOSE (AUTOMATED) 2023-08-27 14:06:00 Herrera Espinoza [facility] POCT GLUCOSE (AUTOMATED) 2023-08-27 13:19:00 Herrera Espinoza [facility] POCT GLUCOSE (AUTOMATED) 2023-08-27 12:01:00 Herrera Espinoza [facility] POCT GLUCOSE (AUTOMATED) 2023-08-27 11:08:00 Herrera Espinoza [facility] POCT GLUCOSE (AUTOMATED) 2023-08-27 10:01:00 Herrera Espinoza [facility] POCT GLUCOSE (AUTOMATED) 2023-08-27 08:45:00 Herrera Espinoza [facility] CT ABDOMEN PELVIS W CONTRAST 2023-08-27 06:40:56 Isidro Amaya [facility] COMP. METABOLIC PANEL ([id number]) 2023-08-27 04:55:00 Isidro Amaya [facility] LIPID PANEL ([id number])(TOTAL CHOLESTEROL, TRIGLYCERIDES, HDL) 2023-08-27 04:55:00 Isidro Amaya [facility] CBC WITH DIFF 2023-08-27 04:55:00 Isidro Amaya [facility] URINALYSIS 2023-08-27 04:55:00 Isidro Amaya [facility] LOW-DENSITY LIPOPROTEIN, DIRECT 2023-08-27 04:55:00 Isidro Amaya [facility] LIPASE 2023-08-27 04:55:00 Isidro Amaya [facility] NOTICE OF PRIVACY PRACTICES 2023-08-27 04:35:03 Doctor Unassigned, Dahlen [facility] CONSENT/REFUSAL FOR DIAGNOSIS AND TREATMENT 2023-08-27 04:34:15 Doctor Unassigned, [place] [facility] POCT GLUCOSE (AUTOMATED) 2023-04-24 16:51:00 Herrera Espinoza [facility] POCT GLUCOSE (AUTOMATED) 2023-04-24 13:59:00 Herrera Espinoza [facility] POCT GLUCOSE (AUTOMATED) 2023-04-24 11:51:00 Herrera Espinoza [facility] POCT GLUCOSE (AUTOMATED) 2023-04-24 09:39:00 Herrera Espinoza [facility] TRIGLYCERIDES 2023-04-24 08:58:00 Ifeoma Espinoza [facility] MAGNESIUM 2023-04-24 08:58:00 Ifeoma Espinoza [facility] BASIC METABOLIC PANEL (NA, K, CL, CO2, GLUCOSE, BUN, CREATININE, CA) 2023-04-24 08:58:00 Ifeoma Espinoza [facility] POCT GLUCOSE (AUTOMATED) 2023-04-24 07:33:00 Herrera Espinoza [facility] POCT GLUCOSE (AUTOMATED) 2023-04-24 05:43:00 Herrera Espinoza [facility] POCT GLUCOSE (AUTOMATED) 2023-04-24 03:30:00 Herrera Espinoza [facility] POCT GLUCOSE (AUTOMATED) 2023-04-23 23:48:00 Herrera Espinoza [facility] POCT GLUCOSE (AUTOMATED) 2023-04-23 20:25:00 Herrera Espinoza [facility] POCT GLUCOSE (AUTOMATED) 2023-04-23 18:18:00 Herrera Espinoza [facility] BASIC METABOLIC PANEL (NA, K, CL, CO2, GLUCOSE, BUN, CREATININE, CA) 2023-04-23 16:39:00 Ifeoma Espinoza [facility] LIPID PANEL ([id number])(TOTAL CHOLESTEROL, TRIGLYCERIDES, HDL) 2023-04-23 16:39:00 Ifeoma Espinoza [facility] LOW-DENSITY LIPOPROTEIN, DIRECT 2023-04-23 16:39:00 Ifeoma Espinoza [facility] POCT GLUCOSE (AUTOMATED) 2023-04-23 16:01:00 Herrera Espinoza [facility] POCT GLUCOSE (AUTOMATED) 2023-04-23 15:06:00 Herrera Espinoza [facility] POCT GLUCOSE (AUTOMATED) 2023-04-23 14:00:00 Herrera Espinoza [facility] POCT GLUCOSE (AUTOMATED) 2023-04-23 12:30:00 Herrera Espinoza [facility] POCT GLUCOSE (AUTOMATED) 2023-04-23 11:44:00 Herrera Espinoza [facility] TRIGLYCERIDES 2023-04-23 10:38:00 Ifeoma Espinoza [facility] MAGNESIUM 2023-04-23 10:38:00 Ifeoma Espinoza [facility] BASIC METABOLIC PANEL (NA, K, CL, CO2, GLUCOSE, BUN, CREATININE, CA) 2023-04-23 10:38:00 Ifeoma Espinoza [facility] CBC WITH DIFF 2023-04-23 10:38:00 Ifeoma Espinoza [facility] POCT GLUCOSE (AUTOMATED) 2023-04-23 10:36:00 Herrera Espinoza [facility] POCT GLUCOSE (AUTOMATED) 2023-04-23 08:07:00 Herrera Espinoza [facility] POCT GLUCOSE (AUTOMATED) 2023-04-23 07:11:00 Herrera Espinoza [facility] POCT GLUCOSE (AUTOMATED) 2023-04-23 06:15:00 Herrera Espinoza [facility] BASIC METABOLIC PANEL (NA, K, CL, CO2, GLUCOSE, BUN, CREATININE, CA) 2023-04-23 05:31:00 Ifeoma Espinoza [facility] POCT GLUCOSE (AUTOMATED) 2023-04-23 05:10:00 Herrera Espinoza [facility] POCT GLUCOSE (AUTOMATED) 2023-04-23 04:06:00 Herrera Espinoza [facility] POCT GLUCOSE (AUTOMATED) 2023-04-23 03:13:00 Herrera Espinoza [facility] POCT GLUCOSE (AUTOMATED) 2023-04-23 02:10:00 Herrera Espinoza [facility] POCT GLUCOSE (AUTOMATED) 2023-04-23 01:05:00 Herrera Espinoza [facility] POCT GLUCOSE (AUTOMATED) 2023-04-23 00:05:00 Herrera Espinoza [facility] URINALYSIS 2023-04-22 23:34:00 [facility] POCT GLUCOSE (AUTOMATED) 2023-04-22 23:17:00 Herrera Espinoza [facility] BASIC METABOLIC PANEL (NA, K, CL, CO2, GLUCOSE, BUN, CREATININE, CA) 2023-04-22 22:40:00 Ifeoma Espinoza [facility] POCT GLUCOSE (AUTOMATED) 2023-04-22 22:06:00 Herrera Espinoza [facility] MRSA / MSSA SCREEN BY PCR, NARES 2023-04-22 21:15:00 Ifeoma Espinoza [facility] POCT GLUCOSE (AUTOMATED) 2023-04-22 21:13:00 [facility] 2023-04-22 20:15:00 Susan Galan [facility] OSMOLALITY, SERUM OR PLASMA 2023-04-22 20:02:00 Singer [facility] BETA HYDROXY-BUTYRATE 2023-04-22 20:02:00 Tony Galan [facility] GLYCOSYLATED HEMOGLOBIN (A1C) 2023-04-22 20:02:00 Singer [facility] PHOSPHORUS 2023-04-22 18:16:00 [facility] LIPASE 2023-04-22 18:16:00 [facility] MAGNESIUM 2023-04-22 18:16:00 Singer [facility] COMP. METABOLIC PANEL ([id number]) 2023-04-22 18:16:00 Singer [facility] LIPID PANEL ([id number])(TOTAL CHOLESTEROL, TRIGLYCERIDES, HDL) 2023-04-22 18:16:00 Singer [facility] CBC WITH DIFF 2023-04-22 18:16:00 Singer [facility] LOW-DENSITY LIPOPROTEIN, DIRECT 2023-04-22 18:16:00 Singer [facility] CRITICAL CARE 2023-04-22 16:03:00 Singer [facility] CONSENT/REFUSAL FOR DIAGNOSIS AND TREATMENT 2023-04-22 16:02:59 Doctor Unassigned, Dahlen [facility] POCT GLUCOSE (AUTOMATED) 2022-11-04 14:31:00 Johnathan [facility] POCT GLUCOSE (AUTOMATED) 2022-11-04 13:37:00 Johnathan [facility] POCT GLUCOSE (AUTOMATED) 2022-11-04 13:20:00 Johnathan [facility] POCT GLUCOSE (AUTOMATED) 2022-11-04 12:28:00 Johnathan [facility] POCT GLUCOSE (AUTOMATED) 2022-11-04 12:01:00 Johnathan [facility] POCT GLUCOSE (AUTOMATED) 2022-11-04 10:28:00 Johnathan [facility] GLYCOSYLATED HEMOGLOBIN (A1C) 2022-11-04 10:24:[address] [facility] TRIGLYCERIDES 2022-11-04 10:23:00 Johnathan [facility] BASIC METABOLIC PANEL (NA, K, CL, CO2, GLUCOSE, BUN, CREATININE, CA) 2022-11-04 10:23:[address] [facility] POCT GLUCOSE (AUTOMATED) 2022-11-04 09:40:00 Johnathan [facility] POCT GLUCOSE (AUTOMATED) 2022-11-04 08:01:00 Johnathan [facility] POCT GLUCOSE (AUTOMATED) 2022-11-04 06:55:00 Johnathan [facility] POCT GLUCOSE (AUTOMATED) 2022-11-04 06:05:00 Johnathan [facility] POCT GLUCOSE (AUTOMATED) 2022-11-04 05:08:[address] [facility] [address] ABDOMEN PELVIS W CONTRAST 2022-11-04 01:18:30 Manny Anand [facility] LIPASE 2022-11-03 22:38:00 [facility] COMP. METABOLIC PANEL ([id number]) 2022-11-03 22:38:00 Manny Anand [facility] LIPID PANEL ([id number])(TOTAL CHOLESTEROL, TRIGLYCERIDES, HDL) 2022-11-03 22:38:00 Manny Anand [facility] ETHANOL 2022-11-03 22:38:00 [facility] CBC WITH DIFF 2022-11-03 22:38:00 Manny Anand [facility] URINALYSIS 2022-11-03 22:38:00 [facility] LOW-DENSITY LIPOPROTEIN, DIRECT 2022-11-03 22:38:00 Manny Anand [facility] URINE DRUG (IMMUNOASSAY) - COMPREHENSIVE DRUG SCREEN W/O REFLEX 2022-11-03 22:38:00 Manny Anand [facility] CONSENT/REFUSAL FOR DIAGNOSIS AND TREATMENT 2022-11-03 21:53:03 Doctor Unassigned, [place] [facility] POCT GLUCOSE (AUTOMATED) 2022-03-29 01:28:00 Jj Sherman [facility] LIPASE 2022-03-28 15:06:00 Ninfa Sherman [facility] MAGNESIUM 2022-03-28 15:06:00 Ninfa Sherman [facility] BASIC METABOLIC PANEL (NA, K, CL, CO2, GLUCOSE, BUN, CREATININE, CA) 2022-03-28 15:06:00 Ninfa Sherman [facility] LIPID PANEL ([id number])(TOTAL CHOLESTEROL, TRIGLYCERIDES, HDL) 2022-03-28 15:06:00 Ninfa Sherman [facility] POCT GLUCOSE (AUTOMATED) 2022-03-28 14:12:00 Jj Sherman [facility] POCT GLUCOSE (AUTOMATED) 2022-03-28 13:26:00 Jj Sherman [facility] POCT GLUCOSE (AUTOMATED) 2022-03-28 11:59:00 Jj Sherman [facility] POCT GLUCOSE (AUTOMATED) 2022-03-28 11:09:00 Jj Sherman [facility] POCT GLUCOSE (AUTOMATED) 2022-03-28 10:01:00 Jj Sherman [facility] CBC WITH DIFF 2022-03-28 09:05:00 [facility] 2022-03-28 09:04:00 Jj Sherman [facility] POCT GLUCOSE (AUTOMATED) 2022-03-28 07:58:00 Jj Sherman [facility] POCT GLUCOSE (AUTOMATED) 2022-03-28 06:53:00 Jj Sherman [facility] POCT GLUCOSE (AUTOMATED) 2022-03-28 06:02:00 Jj Sherman [facility] POCT GLUCOSE (AUTOMATED) 2022-03-28 04:12:00 Jj Sherman [facility] COVID-19 (ID NOW RAPID TESTING) 2022-03-28 00:53:00 Lam Navarro [facility] LAB ONLY COVID INTERPRETATION 2022-03-28 00:53:00 Lam Navarro [facility] CT ABDOMEN PELVIS W CONTRAST 2022-03-27 22:21:13 Lam Navarro [facility] AMYLASE 2022-03-27 20:18:00 Lma Nvaarro [facility] LIPASE 2022-03-27 20:18:00 Lam Navarro [facility] COMP. METABOLIC PANEL ([id number]) 2022-03-27 20:18:00 Lam Navarro [facility] LIPID PANEL ([id number])(TOTAL CHOLESTEROL, TRIGLYCERIDES, HDL) 2022-03-27 20:18:00 Marito Pinzon [facility] CBC WITH DIFF 2022-03-27 20:18:00 Lam Navarro [facility] URINALYSIS 2022-03-27 20:18:00 [facility] LOW-DENSITY LIPOPROTEIN, DIRECT 2022-03-27 20:18:00 Marito Pinzon [facility] CONSENT/REFUSAL FOR DIAGNOSIS AND TREATMENT 2022-03-27 19:44:35 Doctor Unassigned, [place] [facility] POCT HEMOGLOBIN A1C TEST 2022-03-27 14:56:00 Ivonne Figueroa [facility] REFERRAL- REQUEST/RESPONSE 2022-03-19 05:01:00 Doctor Unassigned, [place] [facility] Plan of Care Planned Activity Planned Date Details Comments Source Instructions Edis Díaz Encounters Start Date/Time End Date/Time Encounter Type Admission Type Attending [facility] Facility Care Department Encounter ID Source 2023-11-01 08:29:00 Outpatient [facility]iana [facility] [id number] [facility] 2023-09-30 13:16:00 Outpatient VergaraDiana [facility] [id number] [facility] [facility] 2022-11-01 11:26:01 Outpatient VergaraDiana ricci STLMLC STLC [id number] [facility] 2022-09-04 08:18:00 Outpatient Vergara, Diana STLMLC STLC [id number] [facility] 2022-03-19 12:21:01 Outpatient VergaraDiana STLMLC STLMLC [id number] [facility] 2022-03-01 14:06:03 Outpatient VergaraDiana ricci STLMLC STLC [id number] [facility] 2022-01-04 15:05:02 Outpatient Vergara, Diana STLMLC STLMLC [id number] [facility] 2022-01-03 11:07:02 [facility] [id number] [facility] 2021-12-28 13:01:02 Outpatient Johanna [facility] [id number] [facility] 2021-12-25 16:52:01 [facility] [id number] [facility] 2021-12-19 12:00:04 [facility] [id number] [facility] 2021-12-13 08:21:02 [facility] [id number] [facility] 2021-05-22 16:16:24 Emergency [facility] [id number] [facility] 2021-05-20 13:03:51 Emergency [facility] [id number] [facility] 2021-05-20 01:22:26 Emergency [facility] [id number] [facility] 2021-05-18 20:47:26 Emergency [facility] [id number] [facility] 2021-05-18 14:22:20 Emergency [facility] [id number] [facility] 2021-05-18 13:55:04 Emergency [facility] [id number] [facility] 2023-11-18 16:21:00 2023-11-18 19:52:00 Emergency X CAMILA BROUSSARD SALMIN [facility] ERT [id number] [facility] 2023-11-18 16:21:00 2023-11-18 19:52:00 Emergency Camila Broussard [facility] 1.2.840.114 350.1.13.10 4.2.7.2.686 [id number] [facility] 2023-10-23 00:00:00 2023-10-23 00:00:00 OFFICE VISIT ESTAB PT LEVEL 4 STLMLC STLMLC [id number] [facility] 2023-10-22 00:00:00 2023-10-22 00:00:00 (TEL) STLMLC STLMLC [id number] [facility] 2023-10-10 00:00:00 2023-10-10 00:00:00 OFFICE VISIT ESTAB PT LEVEL 4 STLMLC STLMLC [id number] [facility] 2023-10-09 00:00:00 2023-10-09 00:00:00 (TEL) STLMLC STLMLC [id number] [facility] 2023-09-30 00:00:00 2023-09-30 00:00:00 OFFICE VISIT ESTAB PT LEVEL 4 STLMLC STLMLC [id number] [facility] 2023-09-27 00:00:00 2023-09-27 00:00:00 (TEL) STLMLC STLMLC [id number] [facility] 2023-08-29 00:00:00 2023-08-29 00:00:00 Transition of Care Margaret Hicks 1.2.840.114 350.1.13.10 4.2.7.2.686 [id number] [facility] 2023-08-26 22:46:00 2023-08-28 13:15:00 Inpatient X IFEOMA ESPINOZA [facility] [id number] [facility] 2023-08-26 22:46:00 2023-08-28 13:15:00 Hospital Encounter Isidro Amaya David Edionwe, [facility] .2.840.114 350.1.13.10 4.2.7.2.686 [id number] [facility] 2023-05-02 00:00:00 2023-05-02 00:00:00 OFFICE VISIT ESTAB PT LEVEL 4 STLMLC STLMLC [id number] [facility] 2023-04-26 00:00:00 2023-04-26 00:00:00 (TEL) STLC STLC [id number] [facility] 2023-04-25 00:00:00 2023-04-25 00:00:00 Transition of Care Margaret Kim PLAHELGA 1.840.114 350.1.13.10 4.2.7.2.686 [id number] [facility] 2023-04-22 11:19:00 2023-04-24 14:53:00 Inpatient X IFEOMA ESPINOZA [facility] JULIO CESAR [id number] [facility] 2023-04-22 11:19:00 2023-04-24 14:53:00 Hospital Encounter Ceasar Galan David [facility] 1.840.114 350.1.13.10 4.2.7.2.686 [id number] [facility] 2023-03-27 00:00:00 2023-03-27 00:00:00 (TEL) [facility] [id number] [facility] 2022-11-06 00:00:00 2022-11-06 00:00:00 Transition of Care Celina Carlin 1..840.114 350.1.13.10 4.2.7.2.686 [id number] [facility] 2022-11-03 17:02:00 2022-11-04 11:57:00 Inpatient X LEON EARLY [facility] JULIO CESAR [id number] [facility] 2022-11-03 17:02:00 2022-11-04 11:57:00 Hospital Encounter Manny Anand Santhosh Morris, David [facility] 1.840.114 350.1.13.10 4.2.7.2.686 [id number] [facility] 2022-09-25 14:00:00 2022-09-25 14:00:00 Outpatient VICKY RASMUSSEN [facility] [id number] [facility] 2022-09-06 00:00:00 2022-09-06 00:00:00 OFFICE VISIT ESTAB PT LEVEL 3 STLMLC STLMLC [id number] [facility] 2022-05-16 00:00:00 2022-05-16 00:00:00 OFFICE VISIT EST PT LEVEL 3 STLMLC STLMLC [id number] [facility] 2022-05-07 00:00:00 2022-05-07 00:00:00 (TEL) STLMLC STLMLC [id number] [facility] 2022-03-30 00:00:00 2022-03-30 00:00:00 Transition of Care Daphnie Garcia ..840.114 350.1.13.10 4.2.7.2.686 [id number] [facility] 2022-03-27 14:42:00 2022-03-29 11:08:00 [facility] [id number] [facility] 2022-03-27 14:42:00 2022-03-29 11:08:00 Hospital Encounter Lam Navarro [facility] A. [facility] ..840.114 350.1.13.10 4.2.7.2.686 [id number] [facility] 2022-03-27 14:42:00 2022-03-27 14:42:00 Emergency X LAM NAVARRO [facility] ERT [id number] [facility] 2022-03-27 09:30:00 2022-03-27 10:22:22 Outpatient VICKY RASMUSSEN [facility] [id number] [facility] 2022-03-27 09:30:00 2022-03-27 10:22:22 Office Visit Vicky Figueroa [facility] 1.84.114 350.1.13.10 4.2.7.2.686 [id number] [facility] 2022-03-20 14:00:00 2022-03-20 14:00:00 Outpatient R VICKY FIGUEROA [facility] [id number] [facility] 2022-03-19 00:00:00 2022-03-19 00:00:00 Orders Only Doctor Unassigned, Dahlen [facility] 1.84.114 350.1.13.10 4.2.7.2.686 [id number] [facility] 2022-03-09 00:00:00 2022-03-09 00:00:00 (TEL) STLMLC STLMLC [id number] [facility] 2022-03-08 00:00:00 2022-03-08 00:00:00 OFFICE VISIT EST PT LEVEL 3 STLMLC STLMLC [id number] [facility] 2022-02-01 14:00:00 2022-02-01 14:00:00 Outpatient R JOHNATHAN WALKER KUMAR [facility] [id number] [facility] 2022-01-23 00:00:00 2022-01-23 00:00:00 OFFICE VISIT EST PT LEVEL 3 STLMLC STLMLC [id number] [facility] 2022-01-16 16:06:47 2022-01-16 23:59:00 Outpatient R NOVA GOMEZ [facility] [id number] [facility] 2022-01-16 16:06:47 2022-01-16 23:59:00 Hospital Encounter Nova Gomez [facility] 1.84.114 350.1.13.10 4.2.7.2.686 [id number] [facility] 2022-01-16 00:00:00 2022-01-16 00:00:00 Orders Only Doctor Unassigned, Dahlen [facility] 1.2.840.114 350.1.13.10 4.2.7.2.686 [id number] [facility] 2022-01-05 00:00:00 2022-01-05 00:00:00 (TEL) STLMLC STLMLC [id number] [facility] 2022-01-04 00:00:00 2022-01-04 00:00:00 (TEL) STLMLC STLMLC [id number] [facility] 2022-01-03 00:00:00 2022-01-03 00:00:00 OFFICE VISIT EST PT LEVEL 3 STLMLC STLMLC [id number] [facility] 2022-01-03 00:00:00 2022-01-03 00:00:00 (TEL) STLMLC STLMLC [id number] [facility] 2021-12-21 00:00:00 2021-12-21 00:00:00 (TEL) STLMLC STLMLC [id number] [facility] 2021-12-15 00:00:00 2021-12-15 00:00:00 (TEL) STLMLC STLMLC [id number] [facility] 2021-12-14 00:00:00 2021-12-14 00:00:00 Patient Secure Msg Doctor Unassigned, Dahlen [facility] 1.2.840.114 350.1.13.10 4.2.7.2.686 [id number] [facility] 2021-12-14 00:00:00 2021-12-14 00:00:00 (TEL) STLMLC STLMLC [id number] [facility] 2021-12-13 00:00:00 2021-12-13 00:00:00 OFFICE VISIT NEW PT LEVEL 4 STLMLC STLMLC [id number] [facility] 2021-12-08 00:00:00 2021-12-08 00:00:00 Telephone Tamika Chaparro [facility] 1.2840.114 350.1.13.10 4.2.7.2.686 [id number] [facility] 2021-12-07 16:30:00 2021-12-07 16:30:00 Outpatient LITO MIRZA [facility] JULIO CESAR [id number] [facility] 2021-12-07 00:00:00 2021-12-07 00:00:00 Transition of Care Celina Carlin 1.2840.114 350.1.13.10 4.2.7.2.686 [id number] [facility] 2021-12-04 18:19:00 2021-12-06 12:34:00 Hospital Encounter Alice Ballesteros, Marito Paredes [facility] 1.0.114 350.1.13.10 4.2.7.2.686 [id number] [facility] 2021-11-22 00:00:00 2021-11-22 00:00:00 Telephone Yvrose Lisa [facility] 1.2840.114 350.1.13.10 4.2.7.2.686 [id number] [facility] 2021-11-21 13:00:00 2021-11-21 13:00:00 Outpatient YVROSE NINO [facility] [id number] [facility] 2021-11-16 00:00:00 2021-11-16 00:00:00 Telephone [facility]rose [facility] 1.2840.114 350.1.13.10 4.2.7.2.686 [id number] [facility] 2021-11-09 00:00:00 2021-11-09 00:00:00 Telephone Merced Disla [facility] 1.2.840.114 350.1.13.10 4.2.7.2.686 [id number] [facility] 2021-11-09 00:00:00 2021-11-09 00:00:00 Telephone Merced Disla [facility] 1.2.840.114 350.1.13.10 4.2.7.2.686 [id number] [facility] 2021-11-07 08:30:00 2021-11-07 09:06:20 Outpatient R [facility] [id number] 2021-11-07 08:30:00 2021-11-07 09:06:20 Office Visit Merced Disla [facility] 1.2.840.114 350.1.13.10 4.2.7.2.686 [id number] [facility] 2021-11-06 00:00:00 2021-11-06 00:00:00 Transition of Care Daphnie Garcia 1.2.840.114 350.1.13.10 4.2.7.2.686 [id number] [facility] 2021-11-02 01:58:00 2021-11-03 12:36:00 Inpatient X JEF [facility] JULIO CESAR [id number] [facility] 2021-11-02 01:58:00 2021-11-03 12:36:00 Hospital Encounter Lam Navarro Wakili S Edionwe [facility] 1.2.840.114 350.1.13.10 4.2.7.2.686 [id number] [facility] 2021-08-16 16:00:00 2021-08-16 16:00:00 Outpatient R SONYACHARANYVROSE WANG [facility] [id number] [facility] 2021-06-27 15:00:00 2021-06-27 15:00:00 Outpatient R KAYLANORLIN YAP [facility] [id number] [facility] 2021-06-08 00:00:00 2021-06-08 00:00:00 Orders Only Doctor Unassigned, Dahlen [facility] 1..840.114 350.1.13.10 4.2.7.2.686 [id number] [facility] 2021-05-12 10:00:00 2021-05-12 23:59:00 Hospital Encounter Lucinda Yvrose [facility] 1.2.840.114 350.1.13.10 4.2.7.2.686 [id number] [facility] 2021-05-12 00:00:00 2021-05-12 00:00:00 Outpatient R YVROSE LISA [facility] [id number] [facility] 2021-05-11 16:05:35 2021-05-11 16:20:35 Placement Secretary Visit 2, Adc Lab Yvrose Lisa [facility] 1.2.840.114 350.1.13.10 4.2.7.2.686 [id number] [facility] 2021-05-11 15:00:00 2021-05-11 16:05:47 Outpatient R YVROSE LISA [facility] [id number] [facility] 2021-05-11 14:48:22 2021-05-11 16:05:47 Office Visit Yvrose Lisa [facility] 1.2.840.114 350.1.13.10 4.2.7.2.686 [id number] [facility] 2021-05-08 00:00:00 2021-05-08 00:00:00 Telephone Yvrose Lisa [facility] 1.2.840.114 350.1.13.10 4.2.7.2.686 [id number] [facility] 2021-04-27 16:51:04 2021-04-27 23:59:00 Hospital Encounter Yvrose Lisa [facility] 1.2.840.114 350.1.13.10 4.2.7.2.686 [id number] [facility] 2021-04-27 09:40:00 2021-04-27 09:40:00 Outpatient R YVROSE LISA [facility] [id number] [facility] 2021-04-27 08:13:23 2021-04-27 08:33:23 Telemedici ne Visit Yvrose Lisa [facility] 1.2.840.114 350.1.13.10 4.2.7.2.686 [id number] [facility] 2021-04-25 00:00:00 2021-04-25 00:00:00 Outpatient R YVROSE LISA [facility] [id number] [facility] 2021-04-19 12:17:42 2021-04-19 12:32:42 Placement Secretary Visit Poasha, Adc Lab Main Yvrose Lisa [facility] 1.2.840.114 350.1.13.10 4.2.7.2.686 [id number] [facility] 2021-04-19 08:21:57 2021-04-19 10:35:17 Telemedici ne Visit Yvrose Lisa [facility] nal Building 1..840.114 350.1.13.10 4.2.7.2.686 [id number] [facility] 2021-04-19 08:00:00 2021-04-19 08:00:00 Outpatient R YVROSE LISA [facility] [id number] [facility] 2021-04-19 00:00:00 2021-04-19 00:00:00 Telephone Yvrose Lisa Count includes the [facility]?Arjun [facility] Building 1..840.114 350.1.13.10 4.2.7.2.686 [id number] [facility] 2021-03-07 18:09:00 2021-03-07 18:10:00 Emergency Charlie Hu [facility] 1..840.114 350.1.13.10 4.2.7.2.686 [id number] [facility] 2021-02-09 00:00:00 2021-02-09 00:00:00 Terrie Norman, [employer]: [address] [address], [place] [address] , Ph. [facility] [id number] 0722 [facility] 2020-12-08 00:00:00 2020-12-08 00:00:00 Patient Secure Msg Doctor Unassigned, Dahlen [facility] 1.2.840.114 350.1.13.10 4.2.7.2.686 [id number] [facility] 2020-12-08 00:00:00 2020-12-08 00:00:00 Patient Secure Msg Doctor Unassigned, [place]ah[place] [address].2.840.114 350.1.13.10 4.2.7.2.686 [id number] [facility] 2020-10-06 00:00:00 2020-10-06 00:00:00 Patient Outreach Neo Islas [facility] 1.2840.114 350.1.13.10 4.2.7.2.686 [id number] [facility] 2020-07-27 13:20:00 2020-07-27 13:20:00 Outpatient R SONYAYVROSE JONES [facility] [id number] [facility] 2020-07-13 17:28:00 2020-07-13 18:56:00 Emergency Samaria Mart R [facility] 1.2840.114 350.1.13.10 4.2.7.2.686 [id number] [facility] 2020-06-01 18:00:00 2020-06-01 18:00:00 Outpatient R [facility] [id number] [facility] 2020-05-18 12:41:47 2020-05-18 13:11:47 Office Visit Irena Myles [facility] Office Building One 1.2840.114 350.1.13.10 4.2.7.2.686 [id number] [facility] 2020-05-18 13:00:00 2020-05-18 13:00:00 Outpatient R IRENA MYLES [facility] [id number] [facility] 2020-05-17 14:10:00 2020-05-17 17:08:00 Emergency X Whitney BARKER [facility] ERT [id number] [facility] 2020-05-17 14:10:00 2020-05-17 17:08:00 Emergency Whitney Barker [facility] 1.2840.114 350.1.13.10 4.2.7.2.686 [id number] [facility] 2020-05-17 12:44:42 2020-05-17 13:55:10 Urgent Care Provider, [facility] Velma Grimes [facility] Office Building One 1..114 350.1.13.10 4.2.7.2.686 [id number] [facility] 2020-05-17 13:20:00 2020-05-17 13:20:00 Outpatient R [facility] [id number] [facility] 2020-05-17 13:20:00 2020-05-17 13:20:00 Outpatient R [facility] [id number] [facility] 2020-05-10 10:30:00 2020-05-10 10:30:00 Outpatient R JAMES CANO [facility] [id number] [facility] 2020-05-09 00:00:00 2020-05-09 00:00:00 Telephone Yvrose Lisa [facility] Building 1.114 350.1.13.10 4.2.7.2.686 [id number] [facility] 2020-05-09 00:00:00 2020-05-09 00:00:00 Telephone James Cano [facility] 1.114 350.1.13.10 4.2.7.2.686 [id number] [facility] 2020-04-28 11:00:00 2020-04-28 11:00:00 Outpatient R JOHN CARRANZA [facility] [id number] [facility] 2020-04-28 00:00:00 2020-04-28 00:00:00 Telephone John Carranza [facility] Building 1.84.114 350.1.13.10 4.2.7.2.686 [id number] [facility] 2020-04-25 10:15:00 2020-04-25 10:15:00 Outpatient R [facility] [id number] [facility] 2020-04-25 09:48:38 2020-04-25 10:03:38 Placement Secretary Visit 2, Adc Lab Yvrose Lisa [facility] 1.2.840.114 350.1.13.10 4.2.7.2.686 [id number] [facility] 2020-04-22 09:00:00 2020-04-22 09:00:00 Outpatient R YVROSE LISA [facility] [id number] [facility] 2020-04-22 08:14:42 2020-04-22 08:34:42 Telemedici ne Visit Lucinda [facility] 1.2.840.114 350.1.13.10 4.2.7.2.686 [id number] [facility] 2020-02-04 00:00:00 2020-02-04 00:00:00 Telephone Yvrose Lisa [facility] 1.2.840.114 350.1.13.10 4.2.7.2.686 [id number] [facility] 2020-02-03 07:49:33 2020-02-03 23:59:00 Outpatient R YVROSE LISA [facility] [id number] [facility] 2020-02-03 07:49:00 2020-02-03 23:59:00 Hospital Encounter Yvrose Lisa [facility] 1.2.840.114 350.1.13.10 4.2.7.2.686 [id number] [facility] 2020-02-03 00:00:00 2020-02-03 00:00:00 Outpatient R VYROSE LISA [facility] [id number] [facility] 2020-01-21 12:13:59 2020-01-21 12:43:38 Office Visit Yvrose Lisa [facility] Building 1.2.840.114 350.1.13.10 4.2.7.2.686 [id number] [facility] 2020-01-21 12:40:00 2020-01-21 12:40:00 Outpatient R YVROSE LISA [facility] [id number] [facility] 2019-12-23 14:51:12 2019-12-29 08:06:18 Laboratory Only Pc, Adc Echo Room - [facility] Building 1.2.840.114 350.1.13.10 4.2.7.2.686 [id number] [facility] 2019-12-23 15:00:00 2019-12-23 15:00:00 Outpatient R [facility] [id number] [facility] 2019-12-22 09:30:00 2019-12-22 09:30:00 Outpatient R JOHN CARRANZA [facility] [id number] [facility] 2019-12-11 00:00:00 2019-12-11 00:00:00 Telephone Yvrose Lisa [facility] Office Building One 1.2.840.114 350.1.13.10 4.2.7.2.686 [id number] [facility] 2019-12-01 21:07:33 2019-12-02 00:17:00 Emergency X NIKOS DIAZ [facility] ERT [id number] [facility] 2019-12-01 21:07:33 2019-12-02 00:17:00 Emergency Nikos Diaz [facility] 1.2.840.114 350.1.13.10 4.2.7.2.686 [id number] [facility] 2019-10-09 09:01:20 2019-11-19 10:45:42 Telemedici ne Visit Yvrose Lisa [facility] 1.2.840.114 350.1.13.10 4.2.7.2.686 [id number] [facility] 2019-10-29 00:00:00 2019-10-29 00:00:00 Telephone Unknown, Attending [facility] 1.2.840.114 350.1.13.10 4.2.7.2.686 [id number] [facility] 2019-10-26 00:00:00 2019-10-26 00:00:00 Telephone James Cano [facility] 1.2.840.114 350.1.13.10 4.2.7.2.686 [id number] [facility] 2019-10-22 00:00:00 2019-10-22 00:00:00 Refill Lucinda Yvrose [facility] Ursula [facility] Building 1.2840.114 350.1.13.10 4.2.7.2.686 [id number] [facility] 2019-10-22 00:00:00 2019-10-22 00:00:00 Refill BanYvrose wang [facility] 1.2.840.114 350.1.13.10 4.2.7.2.686 [id number] [facility] 2019-10-16 00:00:00 2019-10-16 00:00:00 Telephone James Cano [facility] 1.2.840.114 350.1.13.10 4.2.7.2.686 [id number] [facility] 2019-10-14 09:00:00 2019-10-14 09:00:00 Outpatient R JAMES CANO [facility] [id number] [facility] 2019-10-14 08:08:41 2019-10-14 08:38:41 Telemedici ne Visit James Cano [facility] 1.2.840.114 350.1.13.10 4.2.7.2.686 [id number] [facility] 2019-10-14 00:00:00 2019-10-14 00:00:00 Telephone James Cano [facility] 1.2840.114 350.1.13.10 4.2.7.2.686 [id number] [facility] 2019-10-09 09:20:00 2019-10-09 09:20:00 Outpatient YVROSE NINO [facility] [id number] [facility] 2019-10-06 00:00:00 2019-10-06 00:00:00 Transition of Care [facility] 1.2840.114 350.1.13.10 4.2.7.2.686 [id number] [facility] 2019-10-03 09:42:25 2019-10-05 15:24:00 Outpatient X KOLBY LOPEZ [facility] [id number] [facility] 2019-10-03 09:42:25 2019-10-05 15:24:00 Emergency Daphnie Zhou [facility] 1.2840.114 350.1.13.10 4.2.7.2.686 [id number] [facility] 2019-09-30 16:49:23 2019-09-30 18:17:00 Emergency Whitney Barker [facility] 1.2.840.114 350.1.13.10 4.2.7.2.686 [id number] [facility] 2019-09-30 00:00:00 2019-09-30 00:00:00 Orders Only Doctor Unassigned, [place] 1.2.840.114 350.1.13.10 4.2.7.2.686 [id number] [facility] 2019-04-08 00:00:00 2019-04-08 00:00:00 Telephone ClearyKatya [facility] 1.2.840.114 350.1.13.10 4.2.7.2.686 [id number] [facility] 2019 00:00:00 2019 00:00:00 Transition of Care GarciaDaphnie Giginadeen Justin Palacios 1.2.840.114 350.1.13.10 4.2.7.2.686 [id number] [facility] 2019-04-01 04:01:42 2019-04-05 11:59:00 Hospital Encounter Lencho Amayamavis Elmer BernardoShaan ugalde [facility] [id number] [facility] Results Test Description Test Time Test Comments Results Result Co mments Source [facility] [id number] 00:00:26CT ABDOMEN PELVIS W CONTRAST HISTORY: 43 years-old; Male; ruq pain COMPARISON: CT abdomen pelvis with contrast dated 08/27/2023. TECHNIQUE AND FINDINGS: Contiguous axial imaging from the level of the lungbases through the pubic symphysis was performed after the uncomplicatedadministration of intraveno us Omnipaque contrast. Coronal and sagittalreconstructions were obtained. ?Auto mA and/or iterativereconstructionwere used to reduce radiation dose. FINDINGS: LOWER THORAX: The lung bases are clear.No cardiomegaly. LIVER: No focal hepatic lesions. Normal contour. Diffuse hepatichypoattenuation. GALLBLADDER AND BILIARY TREE: No intra or extrahepatic biliary ductaldilation. ?Prior cholecystectomy. SPLEEN: Unremarkable. PANCREAS: No ductal dilatation or masses ADRENAL GLANDS: No adrenal lesions.KIDNEYS: No hydronephrosis, stones, or masses. Homogeneous and symmetricalenhancement. GI TRACT: Nodilation or bowel wall thickening. PERITONEUM AND RETROPERITONEUM: No free air or fluid collection.LYMPH NODES: No intra-abdominal or pelvic lymph node enlargement. PELVIS/BLADDER: Bladder is fully distended with no wall thickening. VESSELS: Unremarkable. BONES AND SOFT TISSUES: No suspicious lytic or sclerotic bony lesions.[facility]. METABOLIC PANEL (41309)2023-11-18 23:13:40* Test Item Value Reference Range Interpretation Comme nts NA (test code = 3694900904) 138 mmol/L 135-145 K (test code = 3240304358) 3.7 mmol/L 3.5-5.0 CL (test code = 2529834325) 105 mmol/L 98-108 CO2 TOTAL (test code = 6481794678) 25 mmol/L 23-31 AGAP (test code = 4689353434) 8 2-16 BUN (test code = 5437156443) 8 mg/dL 7-23 GLUCOSE (test code = 5921683293) 95 mg/dL 70-110 CREATININE (test code = 2160-0) 0.65 mg/dL 0.60-1.25 TOTAL BILI (test code = 0908317826) 1.0 mg/dL 0.1-1.1 CALCIUM (test code = 9887407101) 9.5 mg/dL 8.6-10.6 T PROTEIN (test code = 3558281321) 8.0 g/dL 6.3-8.2 ALBUMIN (test code = 4279919258) 4.6 g/dL 3.5-5.0 ALK PHOS (test code = 8442318428) 87 U/L 34-122 ALTv (test code = 1742-6) 26 U/L 5-50 AST(SGOT) (test code = 7746767881) 25 U/L 13-40 eGFR (test code = 63695-0) 119.2 mL/min/1.73m2 CKD-EPI eGFR (20 21). Assuming creatinine has been stable day-to-day for at least three months, the eGFR indicates Category G1 (>= 90 mL/min/1.73 m2) [facility] 23:13:24* Test Item Value Reference Range Interpretation Comme nts LIPASE (test code = 9041488683) 85 U/L 0-220 Lab Interpretation (test cod e = 73820-5) Normal [facility] AliceCBC WITH [id number] 22:50:59* Test Item Value Reference Range Interpretation Comme nts WBC (test code = 6690-2) 12.46 4.20-10.70 H RBC (test code = 789-8) 4.65 4.26-5.52 HGB (test code = 718-7) 15.4 g/dL 12.2-16.4 HCT (test code = 4544-3) 45.6 % 38.4-49.3 MCV (test code = 787-2) 98.1 fL 81.7-95.6 H MCH (test code = 785-6) 33.1 pg 26.1-32.7 H MCHC (test code = 786-4) 33.8 g/dL 31.2-35.0 RDW-SD (test code = 27986-5) 47.9 fL 38.5-51.6 RDW-CV (test code = 788-0) 13.3 % 12.1-15.4 PLT (test code = 777-3) 244 150-328 MPV (test code = 44106-7) 10.8 fL 9.8-13.0 NRBC/100 WBC (test code = 5455036064) 0.0 0.0-10.0 NRBC x10^3 (test code = 0256086109) See_Comment [Automated messa ge] The system which generated this result transmitted reference range: 10*3/?L. The reference range was not used to interpret this result as normal/abnormal. GRAN MAT (NEUT) % (test code = 770-8) 67.6 % IMM GRAN % (test code = 1180936561) 0.70 % LYMPH % (test code = 736-9) 23.8 % MONO % (test code = 5905-5) 5.4 % EOS % (test code = 713-8) 2.2 % BASO % (test code = 706-2) 0.3 % GRAN MAT x10^3(ANC) (test code = 3603006727) 8.42 10*3/uL 1.99-6.95 H IMM GRAN x10^3 (test code = 6383008817) 0.09 10*3/uL 0.00-0.06 H LYMPH x10^3 (test code = 731-0) 2.96 10*3/uL 1.09-3.23 MONO x10^3 (test code = 742-7) 0.67 10*3/uL 0.36-1.02 EOS x10^3 (test code = 711-2) 0.28 10*3/uL 0.06-0.53 BASO x10^3 (test code = 704-7) 0.04 10*3/uL 0.01-0.09 Lab Interpretation (test code = 38272-3) Abnormal [facility] GLUCOSE (AUTOMATED)2023-08-28 13:53:53* Test Item Value Reference Range Interpretation Comme nts POCT GLU (test code = 0784580568) 129 mg/dL 70-110 H Lab Interpretation (test cod e = 02174-7) Abnormal [facility] GLUCOSE (AUTOMATED)2023-08-28 12:09:04* Test Item Value Reference Range Interpretation Comme nts POCT GLU (test code = 4100625253) 131 mg/dL 70-110 H Lab Interpretation (test cod e = 23439-4) Abnormal [facility] GLUCOSE (AUTOMATED)2023-08-28 11:06:28* Test Item Value Reference Range Interpretation Comme nts POCT GLU (test code = 2326668578) 124 mg/dL 70-110 H Lab Interpretation (test cod e = 58950-5) Abnormal [facility] GLUCOSE (AUTOMATED)2023-08-28 10:08:41* Test Item Value Reference Range Interpretation Comme nts POCT GLU (test code = 1926524434) 114 mg/dL 70-110 H Lab Interpretation (test cod e = 08968-2) Abnormal [facility] GLUCOSE (AUTOMATED)2023-08-28 09:06:28* Test Item Value Reference Range Interpretation Comme nts POCT GLU (test code = 8037884575) 140 mg/dL 70-110 H Lab Interpretation (test cod e = 81692-7) Abnormal [facility] GLUCOSE (AUTOMATED)2023-08-28 08:05:59* Test Item Value Reference Range Interpretation Comme nts POCT GLU (test code = 5715420849) 144 mg/dL 70-110 H Lab Interpretation (test cod e = 71530-3) Abnormal [facility] GLUCOSE (AUTOMATED)2023-08-28 07:17:01* Test Item Value Reference Range Interpretation Comme nts POCT GLU (test code = 8731336536) 139 mg/dL 70-110 H Lab Interpretation (test cod e = 51494-5) Abnormal [facility] GLUCOSE (AUTOMATED)2023-08-28 06:23:22* Test Item Value Reference Range Interpretation Comme nts POCT GLU (test code = 2269233488) 136 mg/dL 70-110 H Lab Interpretation (test cod e = 38906-7) Abnormal [facility] GLUCOSE (AUTOMATED)2023-08-28 04:59:23* Test Item Value Reference Range Interpretation Comme nts POCT GLU (test code = 2836595823) 103 mg/dL 70-110 Lab Interpretation (test cod e = 89033-2) Normal [facility] GLUCOSE (AUTOMATED)2023-08-28 04:07:36* Test Item Value Reference Range Interpretation Comme nts POCT GLU (test code = 4709035583) 94 mg/dL 70-110 Lab Interpretation (test cod e = 65665-5) Normal [facility] GLUCOSE (AUTOMATED)2023-08-28 03:01:20* Test Item Value Reference Range Interpretation Comme nts POCT GLU (test code = 9170307791) 111 mg/dL 70-110 H Lab Interpretation (test cod e = 41698-3) Abnormal [facility] GLUCOSE (AUTOMATED)2023-08-28 02:07:04* Test Item Value Reference Range Interpretation Comme nts POCT GLU (test code = 8544022741) 124 mg/dL 70-110 H Lab Interpretation (test cod e = 75167-3) Abnormal [facility] GLUCOSE (AUTOMATED)2023-08-28 01:16:09* Test Item Value Reference Range Interpretation Comme nts POCT GLU (test code = 6353011483) 113 mg/dL 70-110 H Lab Interpretation (test cod e = 64633-4) Abnormal [facility] GLUCOSE (AUTOMATED)2023-08-27 23:52:30* Test Item Value Reference Range Interpretation Comme nts POCT GLU (test code = 1959435392) 96 mg/dL 70-110 Lab Interpretation (test cod e = 02659-4) Normal [facility]-Density Lipoprotein, [id number] 22:27:36* Test Item Value Reference Range Interpretation Comme nts dLDL Chol (test code = 63169-3) 87 mg/dL <=130 Lab Interpretation (test cod e = 42088-1) Normal [facility] GLUCOSE (AUTOMATED)2023-08-27 21:10:54* Test Item Value Reference Range Interpretation Comme nts POCT GLU (test code = 3153653262) 98 mg/dL 70-110 Lab Interpretation (test cod e = 26259-9) Normal [facility] GLUCOSE (AUTOMATED)2023-08-27 19:30:26* Test Item Value Reference Range Interpretation Comme nts POCT GLU (test code = 6510635004) 88 mg/dL 70-110 Lab Interpretation (test cod e = 97312-1) Normal [facility] GLUCOSE (AUTOMATED)2023-08-27 18:34:14* Test Item Value Reference Range Interpretation Comme nts POCT GLU (test code = 9549393693) 63 mg/dL 70-110 L Lab Interpretation (test cod e = 91843-2) Abnormal [facility] GLUCOSE (AUTOMATED)2023-08-27 17:26:20* Test Item Value Reference Range Interpretation Comme nts POCT GLU (test code = 0173497614) 70 mg/dL 70-110 Lab Interpretation (test cod e = 52042-7) Normal [facility] GLUCOSE (AUTOMATED)2023-08-27 16:20:31* Test Item Value Reference Range Interpretation Comme nts POCT GLU (test code = 0812652823) 66 mg/dL 70-110 L Lab Interpretation (test cod e = 05866-7) Abnormal [facility] AliceHepatic Function Panel (57196) (ALB,T.PRO,BILI T,BU/BC,ALT,AST,ALK PHOS)2023-08-27 15:12:04* Test Item Value Reference Range Interpretation Comme nts TOTAL BILI (test code = 6552357568) 0.9 mg/dL 0.1-1.1 BILI UNCON (test code = 0169945885) 0.7 mg/dL 0.1-1.1 BILI CONJ (test code = 9940007410) 0.0 mg/dL 0.0-0.3 T PROTEIN (test code = 6764119766) 6.8 g/dL 6.3-8.2 ALBUMIN (test code = 7838410719) 3.7 g/dL 3.5-5.0 ALK PHOS (test code = 7818282389) 83 U/L 34-122 ALTv (test code = 1742-6) 184 U/L 5-50 H AST(SGOT) (test code = 5518285022) 164 U/L 13-40 H Lab Interpretation (test cod e = 41788-5) Abnormal [facility]OMATED)2023-08-27 15:11:59* Test Item Value Reference Range Interpretation Comme [facility] POCT GLU (test code = 1518797384) 91 mg/dL 70-110 Lab Interpretation (test cod e = 21783-6) Normal [facility] AliceLipid Panel (00899)(Total Cholesterol, Triglycerides, HDL)2023-08-27 15:11:54* Test Item Value Reference Range Interpretation Comme nts CHOL (test code = 4190388807) 261 mg/dL 120-200 H HDL (test code = 3170147458) 26 mg/dL >=40 L HDLC RATIO (test code = 6715251977) 10.0 <=5.0 H TRIG (test code = 4228110134) 716 mg/dL 30-170 H LDL CHOL (test code = 94191-5) Unable to calcul ate LDL due to elevated triglyceride level greater than 400 mg/dL. VLDL (test code = 5093257808) Unable to calcul ate VLDL due to elevated triglyceride level greater than 710 mg/dL. Lab Interpretation (test code = 68290-3) Abnormal [facility] AliceMagnesium2024-02-06 15:01:30* Test Item Value Reference Range Interpretation Comme nts MAGNESIUM (test code = 2805784771) 2.0 mg/dL 1.7-2.4 Lab Interpretation (test cod e = 61730-1) Normal [facility] Metabolic Panel (NA, K, CL, CO2, GLUCOSE, BUN, CREATININE, CA)2023-08-27 15:01:15* Test Item Value Reference Range Interpretation Comme nts NA (test code = 6916580021) 139 mmol/L 135-145 K (test code = 0576623607) 3.7 mmol/L 3.5-5.0 CL (test code = 0432542489) 114 mmol/L 98-108 H CO2 TOTAL (test code = 6854141737) 22 mmol/L 23-31 L AGAP (test code = 5530165571) 3 2-16 BUN (test code = 1871595412) 11 mg/dL 7-23 GLUCOSE (test code = 3294121991) 77 mg/dL 70-110 CREATININE (test code = 3751503071) 0.70 mg/dL 0.60-1.25 CALCIUM (test code = 9347588636) 8.4 mg/dL 8.6-10.6 L eGFR (test code = 06759-7) 116.5 mL/min/1.73m2 CKD-EPI eGFR (2020). Assuming creatinine has been stable day-to-day for at least three months, the eGFR indicates Category G1 (>= 90 mL/min/1.73 m2) Lab Interpretation (test code = 55527-7) Abnormal [facility] GLUCOSE (AUTOMATED)2023-08-27 14:07:27* Test Item Value Reference Range Interpretation Comme nts POCT GLU (test code = 7349941622) 61 mg/dL 70-110 L Lab Interpretation (test cod e = 52667-2) Abnormal [facility] ABDOMEN PELVIS W [id number] 13:28:54EXAM: CT ABDOMEN PELVIS W CONTRAST HISTORY: 43 years-old Male: Abdominal pain, acute, nonlocalized hx of chronic pancreatitis. TECHNIQUE: Contiguous axial imaging from the level of the lung basesthrough the proximal thighs was performed with intravenous contrast.Coronal and sagittal reconstructionswere obtained. COMPARISON: None FINDINGS: LOWER THORAX: The lung bases are clear. LIVER: The liver is enlarged measuring 18.9 cm in craniocaudal dimensionand hypoattenuating. No focal hepatic lesion is seen. GALLBLADDER AND BILIARY TREE: Prior cholecystectomy with prominent commonbile duct measuring 11 mm, likely due to reservoir phenomenon. SPLEEN: The spleen appears unremarkable. PANCREAS: No ductal dilation or masses are visualized. ADRENAL GLANDS: No adrenal masses are seen. KIDNEYS: No hydronephrosis, stones, or solid masses are visualized. GI TRACT: No dilation or bowel wall thickening is seen. Appendectomy. PERITONEUM AND RETROPERITONEUM: No intra-abdominal free air or fluidcollection is visualized. PELVIS/BLADDER: The bladder is contracted, limiting evaluation. Theprostate appearsnormal in size. LYMPH NODES: No enlarged intra-abdominal or pelvic lymph nodes are found. VESSELS: The vessels appear unremarkable. BONES AND SOFT TISSUES: No suspicious lytic or sclerotic bony lesions arepresent. Spondylotic changes are manifested by ? ?.[facility] GLUCOSE (AUTOMATED)2023-08-27 13:25:43* Test Item Value Reference Range Interpretation Comme nts POCT GLU (test code = 4706594812) 83 mg/dL 70-110 Lab Interpretation (test cod e = 40426-9) Normal [facility] AliceLow-Density Lipoprotein, [id number] 12:10:35* Test Item Value Reference Range Interpretation Comme nts dLDL Chol (test code = 87080-5) 86 mg/dL <=130 Lab Interpretation (test cod e = 62931-8) Normal [facility] GLUCOSE (AUTOMATED)2023-08-27 12:02:44* Test Item Value Reference Range Interpretation Comme nts POCT GLU (test code = 7527810664) 81 mg/dL 70-110 Lab Interpretation (test cod e = 77671-5) Normal [facility] GLUCOSE (AUTOMATED)2023-08-27 11:09:21* Test Item Value Reference Range Interpretation Comme nts POCT GLU (test code = 3684471453) 74 mg/dL 70-110 Lab Interpretation (test cod e = 82359-7) Normal [facility] GLUCOSE (AUTOMATED)2023-08-27 10:01:57* Test Item Value Reference Range Interpretation Comme nts POCT GLU (test code = 5743523374) 87 mg/dL 70-110 Lab Interpretation (test cod e = 55061-6) Normal [facility]2023-08-27 08:55:25* Test Item Value Reference Range Interpretation Comme nts POCT GLU (test code = 7210945901) 103 mg/dL 70-110 Lab Interpretation (test cod e = 00497-1) Normal [facility] AliceCB with [id number] 06:13:42* Test Item Value Reference Range Interpretation Comme nts WBC (test code = 6690-2) 14.05 4.20-10.70 H RBC (test code = 789-8) 4.92 4.26-5.52 HGB (test code = 718-7) 16.2 g/dL 12.2-16.4 HCT (test code = 4544-3) 46.7 % 38.4-49.3 MCV (test code = 787-2) 94.9 fL 81.7-95.6 MCH (test code = 785-6) 32.9 pg 26.1-32.7 H MCHC (test code = 786-4) 34.7 g/dL 31.2-35.0 RDW-SD (test code = 72247-5) 45.6 fL 38.5-51.6 RDW-CV (test code = 788-0) 13.2 % 12.1-15.4 PLT (test code = 777-3) 335 150-328 H MPV (test code = 28922-3) 9.8 fL 9.8-13.0 NRBC/100 WBC (test code = 6468860250) 0.0 0.0-10.0 NRBC x10^3 (test code = 3127663295) See_Comment [Automated messa ge] The system which generated this result transmitted reference range: 10*3/?L. The reference range was not used to interpret this result as normal/abnormal. SEG % (test code = 88413-2) 52 % 33-76 LYMPH % (test code = 39025-9) 32 % 14-54 MONO % (test code = 88631-6) 8 % 0-4 H EOS % (test code = 28961-3) 8 % 0-3 H ANC (test code = 753-4) 7.31 10*3/uL 1.99-6.95 H Lab Interpretation (test code = 88882-7) Abnormal [facility] AliceLipid Panel (66961)(Total Cholesterol, Triglycerides, HDL)2023-08-27 06:01:06* Test Item Value Reference Range Interpretation Comme nts CHOL (test code = 8891778092) 322 mg/dL 120-200 H HDL (test code = 4402193882) 29 mg/dL >=40 L HDLC RATIO (test code = 7990901298) 11.1 <=5.0 H TRIG (test code = 4476796906) 1018 mg/dL 30-170 H LDL CHOL (test code = 61781-8) Unable to calcul ate LDL due to elevated triglyceride level greater than 400 mg/dL. VLDL (test code = 4353356377) Unable to calcul ate VLDL due to elevated triglyceride level greater than 710 mg/dL. Lab Interpretation (test code = 57714-0) Abnormal [facility] AliceComplete Metabolic [id number] 05:49:52* Test Item Value Reference Range Interpretation Comme nts NA (test code = 0930579763) 140 mmol/L 135-145 K (test code = 8899359439) 3.4 mmol/L 3.5-5.0 L CL (test code = 9487679405) 111 mmol/L 98-108 H CO2 TOTAL (test code = 1746481709) 19 mmol/L 23-31 L AGAP (test code = 6139190476) 10 2-16 BUN (test code = 2032389606) 12 mg/dL 7-23 GLUCOSE (test code = 3673554029) 135 mg/dL 70-110 H CREATININE (test code = 6655451200) 0.72 mg/dL 0.60-1.25 TOTAL BILI (test code = 9576864291) 1.2 mg/dL 0.1-1.1 H CALCIUM (test code = 4627035106) 9.3 mg/dL 8.6-10.6 T PROTEIN (test code = 2929881066) 8.3 g/dL 6.3-8.2 H ALBUMIN (test code = 7959693830) 4.6 g/dL 3.5-5.0 ALK PHOS (test code = 9145664283) 105 U/L 34-122 ALTv (test code = 1742-6) 33 U/L 5-50 AST(SGOT) (test code = 1538915232) 32 U/L 13-40 eGFR (test code = 90960-1) 115.5 mL/min/1.73m2 CKD-EPI eGFR (2020). Assuming creatinine has been stable day-to-day for at least three months, the eGFR indicates Category G1 (>= 90 mL/min/1.73 m2) Lab Interpretation (test code = 14878-5) Abnormal [facility] AliceLipase, [id number] 05:49:32* Test Item Value Reference Range Interpretation Comme nts LIPASE (test code = 5967756031) 277 U/L 0-220 H Lab Interpretation (test cod e = 37104-4) Abnormal [facility] GLUCOSE (AUTOMATED)2023-04-24 16:53:06* Test Item Value Reference Range Interpretation Comme nts POCT GLU (test code = 1120238935) 86 mg/dL 70-110 Lab Interpretation (test cod e = 17584-7) Normal [facility] GLUCOSE (AUTOMATED)2023-04-24 14:00:18* Test Item Value Reference Range Interpretation Comme nts POCT GLU (test code = 5216414297) 109 mg/dL 70-110 Lab Interpretation (test cod e = 17832-6) Normal [facility] GLUCOSE (AUTOMATED)2023-04-24 11:53:00* Test Item Value Reference Range Interpretation Comme nts POCT GLU (test code = 6331487160) 110 mg/dL 70-110 Lab Interpretation (test cod e = 78057-3) Normal [facility] AliceTriglycerides2023-10-04 10:08:45* Test Item Value Reference Range Interpretation Comme nts TRIG (test code = 8692794461) 712 mg/dL 30-170 H Lab Interpretation (test cod e = 16038-2) Abnormal [facility] METABOLIC PANEL (NA, K, CL, CO2, GLUCOSE, BUN, CREATININE, CA)2023-04-24 09:51:34* Test Item Value Reference Range Interpretation Comme nts NA (test code = 1731575676) 140 mmol/L 135-145 K (test code = 6047288142) 3.4 mmol/L 3.5-5.0 L CL (test code = 0453917803) 111 mmol/L 98-108 H CO2 TOTAL (test code = 1996501238) 22 mmol/L 23-31 L AGAP (test code = 2724657274) 7 2-16 BUN (test code = 6230991627) 6 mg/dL 7-23 L GLUCOSE (test code = 6063428274) 104 mg/dL 70-110 CREATININE (test code = 2881108832) 0.53 mg/dL 0.60-1.25 L CALCIUM (test code = 0951724824) 7.7 mg/dL 8.6-10.6 L eGFR (test code = 5736825555) 168.9 mL/min/1.73m2 ALIREZA (test code = ALIREZA) Association of [...] or abnormalities in imaging tests). Lab Interpretation (test code = 86505-5) Abnormal [facility] Alice[facility]UM2023-[facility]-04 09:51:34* Test Item Value Reference Range Interpretation Comme nts MAGNESIUM (test code = 7635766881) 1.8 mg/dL 1.7-2.4 Lab Interpretation (test cod e = 20879-2) Normal [facility] GLUCOSE (AUTOMATED)2023-04-24 09:40:51* Test Item Value Reference Range Interpretation Comme nts POCT GLU (test code = 9797600824) 115 mg/dL 70-110 H Lab Interpretation (test cod e = 78489-1) Abnormal [facility] GLUCOSE (AUTOMATED)2023-04-24 07:33:45* Test Item Value Reference Range Interpretation Comme nts POCT GLU (test code = 2392509660) 114 mg/dL 70-110 H Lab Interpretation (test cod e = 74708-4) Abnormal [facility] GLUCOSE (AUTOMATED)2023-04-24 05:45:02* Test Item Value Reference Range Interpretation Comme nts POCT GLU (test code = 5752455281) 109 mg/dL 70-110 Lab Interpretation (test cod e = 63213-3) Normal [facility] GLUCOSE (AUTOMATED)2023-04-24 03:31:36* Test Item Value Reference Range Interpretation Comme nts POCT GLU (test code = 8108362358) 111 mg/dL 70-110 H Lab Interpretation (test cod e = 04610-2) Abnormal [facility] GLUCOSE (AUTOMATED)2023-04-23 23:49:14* Test Item Value Reference Range Interpretation Comme nts POCT GLU (test code = 1378634601) 109 mg/dL 70-110 Lab Interpretation (test cod e = 92513-7) Normal [facility] AliceLOW-DENSITY LIPOPROTEIN, [id number] 21:26:24* Test Item Value Reference Range Interpretation Comme nts dLDL Chol (test code = 02267-8) 68 mg/dL <=130 Lab Interpretation (test cod e = 90352-1) Normal [facility] GLUCOSE (AUTOMATED)2023-04-23 20:26:50* Test Item Value Reference Range Interpretation Comme nts POCT GLU (test code = 9014476530) 154 mg/dL 70-110 H Lab Interpretation (test cod e = 70790-8) Abnormal [facility] Alice[facility]2023-04-23 18:19:35* Test Item Value Reference Range Interpretation Comme [facility] POCT GLU (test code = 6038040909) 133 mg/dL 70-110 H Lab Interpretation (test cod e = 37254-5) Abnormal [facility] AliceLIPID PANEL (96726)(TOTAL CHOLESTEROL, TRIGLYCERIDES, HDL)2023-04-23 17:26:41* Test Item Value Reference Range Interpretation Comme nts CHOL (test code = 6416806695) 261 mg/dL 120-200 H HDL (test code = 6783761401) 28 mg/dL >=40 L HDLC RATIO (test code = 7853142959) 9.3 <=5.0 H TRIG (test code = 5879475128) 637 mg/dL 30-170 H LDL CHOL (test code = 99284-9) Unable to calcul ate LDL due to elevated triglyceride level greater than 400 mg/dL. VLDL (test code = 1288235991) 127 mg/dL 5-60 H Lab Interpretation (test code = 03141-0) [facility]normal [facility] (NA, K, CL, CO2, GLUCOSE, BUN, CREATININE, CA)2023-04-23 17:17:22* Test Item Value Reference Range Interpretation Comme [facility] NA (test code = 2588905499) 137 mmol/L 135-145 K (test code = 3410438310) 3.8 mmol/L 3.5-5.0 CL (test code = 9997986356) 106 mmol/L 98-108 CO2 TOTAL (test code = 1988607103) 23 mmol/L 23-31 AGAP (test code = 5963627338) 8 2-16 BUN (test code = 3026567370) 6 mg/dL 7-23 L GLUCOSE (test code = 5330605479) 123 mg/dL 70-110 H CREATININE (test code = 4145018584) 0.60 mg/dL 0.60-1.25 CALCIUM (test code = 7204261143) 8.2 mg/dL 8.6-10.6 L eGFR (test code = 0377029218) 146.4 mL/min/1.73m2 ALIREZA (test code = ALIREZA) Association of [...] or abnormalities in imaging tests). Lab Interpretation (test code = 19291-4) Abnormal [facility] GLUCOSE (AUTOMATED)2023-04-23 16:02:31* Test Item Value Reference Range Interpretation Comme nts POCT GLU (test code = 6147775539) 139 mg/dL 70-110 H Lab Interpretation (test cod e = 07031-9) Abnormal [facility] GLUCOSE (AUTOMATED)2023-04-23 15:09:16* Test Item Value Reference Range Interpretation Comme nts POCT GLU (test code = 9272093588) 145 mg/dL 70-110 H Lab Interpretation (test cod e = 87230-8) Abnormal [facility] GLUCOSE (AUTOMATED)2023-04-23 14:00:57* Test Item Value Reference Range Interpretation Comme nts POCT GLU (test code = [id number]) 137 mg/dL 70-110 H Lab Interpretation (test cod e = 76562-7) Abnormal [facility] GLUCOSE (AUTOMATED)2023-04-23 12:32:01* Test Item Value Reference Range Interpretation Comme nts POCT GLU (test code = [id number]) 124 mg/dL 70-110 H Lab Interpretation (test cod e = 16337-2) Abnormal [facility] GLUCOSE (AUTOMATED)2023-04-23 11:45:33* Test Item Value Reference Range Interpretation Comme nts POCT GLU (test code = [id number]) 123 mg/dL 70-110 H Lab Interpretation (test cod e = 54193-7) Abnormal [facility] GLUCOSE (AUTOMATED)2023-04-23 10:40:48* Test Item Value Reference Range Interpretation Comme nts POCT GLU (test code = 7344486994) 140 mg/dL 70-110 H Lab Interpretation (test cod e = 14259-2) Abnormal [facility] GLUCOSE (AUTOMATED)2023-04-23 08:10:04* Test Item Value Reference Range Interpretation Comme nts POCT GLU (test code = 4410482449) 112 mg/dL 70-110 H Lab Interpretation (test cod e = 05344-2) Abnormal [facility] GLUCOSE (AUTOMATED)2023-04-23 07:12:47* Test Item Value Reference Range Interpretation Comme nts POCT GLU (test code = 7700905089) 107 mg/dL 70-110 Lab Interpretation (test cod e = 97833-0) Normal [facility] Metabolic Panel (NA, K, CL, CO2, GLUCOSE, BUN, CREATININE, CA)2023-04-23 06:16:40* Test Item Value Reference Range Interpretation Comme nts NA (test code = 5891672846) 137 mmol/L 135-145 K (test code = 0962906838) 3.2 mmol/L 3.5-5.0 L CL (test code = 4464250264) 106 mmol/L 98-108 CO2 TOTAL (test code = 8738370493) 20 mmol/L 23-31 L AGAP (test code = 3395843734) 11 2-16 BUN (test code = 4544090639) 10 mg/dL 7-23 GLUCOSE (test code = 5374534895) 134 mg/dL 70-110 H CREATININE (test code = 7914043229) 0.61 mg/dL 0.60-1.25 CALCIUM (test code = 2289539321) 8.3 mg/dL 8.6-10.6 L eGFR (test code = 6967819292) 143.6 mL/min/1.73m2 ALIREZA (test code = ALIREZA) Association of [...] or abnormalities in imaging tests). Lab Interpretation (test code = 40987-7) [facility] 06:16:10* Test Item Value Reference Range Interpretation Comme [facility] POCT GLU (test code = 0619991203) 112 mg/dL 70-110 H Lab Interpretation (test cod e = 48533-5) [facility]normal [facility] AliceBetahydroxy-[id number] 05:18:07* Test Item Value Reference Range Interpretation Comme [facility] BOH (test code = 4393740955) 0.1 mmol/L ALIREZA (test code = ALIREZA) Normal Ranges: ? ? Nonfasting ? Less than 0.1 mmol/L ? ? Overnight Fast ? ? ? Less than 0.4 mmol/L ? ? Fasting (1-2 weeks) ?6-8 mmol/L Test developed and characteristics determined by [facility] Laboratory Services. [facility] GLUCOSE (AUTOMATED)2023-04-23 05:17:07* Test Item Value Reference Range Interpretation Comme nts POCT GLU (test code = 6959958614) 152 mg/dL 70-110 H Lab Interpretation (test cod e = 86956-1) [facility]normal [facility] AliceOsmolality [id number] 04:51:48* Test Item Value Reference Range Interpretation Comme nts OSMOLALITY (test code = 2692-2) 301 See_Comment [Automated [employer] ge] The system which generated this result transmitted reference range: 278 - 305 mOsm/kg. The reference range was not used to interpret this result as normal/abnormal. Lab Interpretation (test code = 39397-2) Normal [facility] GLUCOSE (AUTOMATED)2023-04-23 04:09:07* Test Item Value Reference Range Interpretation Comme nts POCT GLU (test code = 5530115991) 138 mg/dL 70-110 H Lab Interpretation (test cod e = 03884-1) Abnormal [facility] GLUCOSE (AUTOMATED)2023-04-23 03:16:12* Test Item Value Reference Range Interpretation Comme nts POCT GLU (test code = 2161563368) 113 mg/dL 70-110 H Lab Interpretation (test cod e = 78214-1) Abnormal [facility] GLUCOSE (AUTOMATED)2023-04-23 02:12:41* Test Item Value Reference Range Interpretation Comme nts POCT GLU (test code = 3026045604) 109 mg/dL 70-110 Lab Interpretation (test cod e = 10624-1) Normal [facility] GLUCOSE (AUTOMATED)2023-04-23 01:06:09* Test Item Value Reference Range Interpretation Comme nts POCT GLU (test code = 5853622251) 112 mg/dL 70-110 H Lab Interpretation (test cod e = 72439-3) Abnormal [facility] GLUCOSE (AUTOMATED)2023-04-23 00:10:07* Test Item Value Reference Range Interpretation Comme [facility] POCT GLU (test code = 3087523034) 116 mg/dL 70-110 H Lab Interpretation (test cod e = 97352-0) Abnormal [facility] Metabolic Panel (NA, K, CL, CO2, GLUCOSE, BUN, CREATININE, CA)2023-04-22 23:29:49* Test Item Value Reference Range Interpretation Comme [facility] NA (test code = 7621773643) 138 mmol/L 135-145 K (test code = 0392665286) 3.6 mmol/L 3.5-5.0 CL (test code = 0934709952) 108 mmol/L 98-108 CO2 TOTAL (test code = 2611632696) 17 mmol/L 23-31 L AGAP (test code = 7874194154) 13 2-16 BUN (test code = 2361712105) 12 mg/dL 7-23 GLUCOSE (test code = 2897476787) 100 mg/dL 70-110 CREATININE (test code = 9344269697) 0.65 mg/dL 0.60-1.25 CALCIUM (test code = 9541464739) 8.6 mg/dL 8.6-10.6 eGFR (test code = 7185358985) 133.4 mL/min/1.73m2 ALIREZA (test code = ALIREZA) Association of [...] or abnormalities in imaging tests). Lab Interpretation (test code = 63293-1) Abnormal [facility] GLUCOSE (AUTOMATED)2023-04-22 23:18:57* Test Item Value Reference Range Interpretation Comme nts POCT GLU (test code = 1255819481) 108 mg/dL 70-110 Lab Interpretation (test cod e = 95058-1) Normal [facility] LIPOPROTEIN, [id number] 22:35:40* Test Item Value Reference Range Interpretation Comme nts dLDL Chol (test code = 70036-0) 69 mg/dL <=130 Lab Interpretation (test cod e = 17289-8) Normal [facility] GLUCOSE (AUTOMATED)2023-04-22 22:07:25* Test Item Value Reference Range Interpretation Comme nts POCT GLU (test code = 9961928950) 113 mg/dL 70-110 H Lab Interpretation (test cod e = 48050-1) Abnormal [facility] GLUCOSE (AUTOMATED)2023-04-22 21:24:51* Test Item Value Reference Range Interpretation Comme nts POCT GLU (test code = 7827360244) 94 mg/dL 70-110 Lab Interpretation (test cod e = 60265-3) Normal [facility] AliceGlycosylated Hemoglobin (A1C)2023-04-22 21:22:50* Test Item Value Reference Range Interpretation Comme nts HGB A1C (test code = 4548-4) 5.7 % 4.0-5.7 ALIREZA (test code = ALIREZA) Reference RangesNormal: <5.7%Prediabetes: 5.7 - 6.4%Diabetes: > 6.5% Lab Interpretation (test code = 58403-9) Normal [facility] AliceMagnesium [id number] 21:02:01* Test Item Value Reference Range Interpretation Comme nts MAGNESIUM (test code = 8169676369) 1.8 mg/dL 1.7-2.4 Lab Interpretation (test cod e = 49215-8) Normal [facility] AlicePhosphorus [id number] 21:01:44* Test Item Value Reference Range Interpretation Comme nts PHOSPHORUS (test code = 4129572709) 4.0 mg/dL 2.5-5.0 Slight hemolysis Lab Interpretation (test code = 13104-8) Normal [facility] GLUCOSE (AUTOMATED)2023-04-22 20:16:37* Test Item Value Reference Range Interpretation Comme nts POCT GLU (test code = 9436462023) 100 mg/dL 70-110 Lab Interpretation (test cod e = 20716-6) Normal [facility] GLUCOSE(AGE >30DAYS)2023-04-22 20:15:00* Test Item Value Reference Range Interpretation Comme nts POCT Glu (age>30days) (test code = 3342) 100 mg/dL 70-110 Lab Interpretation (test cod e = 72141-9) Normal [facility] AliceLIPID PANEL (94413)(TOTAL CHOLESTEROL, TRIGLYCERIDES, HDL)2023-04-22 19:22:07* Test Item Value Reference Range Interpretation Comme nts CHOL (test code = 8310467338) 317 mg/dL 120-200 H HDL (test code = 2867165786) 29 mg/dL >=40 L HDLC RATIO (test code = 2536486694) 10.9 <=5.0 H TRIG (test code = 2479402773) 1383 mg/dL 30-170 H LDL CHOL (test code = 84523-9) Unable to calcul ate LDL due to elevated triglyceride level greater than 400 mg/dL. VLDL (test code = 4200817933) Unable to calcul ate VLDL due to elevated triglyceride level greater than 710 mg/dL. Lab Interpretation (test code = 44340-0) Abnormal [facility] AliceCBC WITH [id number] 18:48:11* Test Item Value Reference Range Interpretation Comme nts WBC (test code = 6690-2) 18.74 See_Comment H [Automated message] The system which generated this result transmitted reference range: 4.20 - 10.70 10*3/?L. The reference range was not used to interpret this result as normal/abnormal. RBC (test code = 789-8) 4.41 See_Comment [Automated message] The system which generated this result transmitted reference range: 4.26 - 5.52 10*6/?L. The reference range was not used to interpret this result as normal/abnormal. HGB (test code = 718-7) 14.5 g/dL 12.2-16.4 HCT (test code = 4544-3) 42.3 % 38.4-49.3 MCV (test code = 787-2) 95.9 fL 81.7-95.6 H MCH (test code = 785-6) 32.9 pg 26.1-32.7 H MCHC (test code = 786-4) 34.3 g/dL 31.2-35.0 RDW-SD (test code = 81652-9) 47.6 fL 38.5-51.6 RDW-CV (test code = 788-0) 13.6 % 12.1-15.4 PLT (test code = 777-3) 263 See_Comment [Automated message] The system which generated this result transmitted reference range: 150 - 328 10*3/?L. The reference range was not used to interpret this result as normal/abnormal. MPV (test code = 99911-7) 10.1 fL 9.8-13.0 NRBC/100 WBC (test code = 8094096761) 0.0 See_Comment [Automated message] The system which generated this result transmitted reference range: 0.0 - 10.0 /100 WBCs. The reference range was not used to interpret this result as normal/abnormal. NRBC x10^3 (test code = 2711383001) See_Comment [Automated message] The system which generated this result transmitted reference range: 10*3/?L. The reference range was not used to interpret this result as normal/abnormal. GRAN MAT (NEUT) % (test code = 770-8) 77.3 % IMM GRAN % (test code = 9623000354) 0.70 % LYMPH % (test code = 736-9) 13.5 % MONO % (test code = 5905-5) 7.0 % EOS % (test code = 713-8) 1.2 % BASO % (test code = 706-2) 0.3 % GRAN MAT x10^3(ANC) (test code = 1200051313) 14.49 10*3/uL 1.99-6.95 H IMM GRAN x10^3 (test code = 0918939263) 0.13 10*3/uL 0.00-0.06 H LYMPH x10^3 (test code = 731-0) 2.53 10*3/uL 1.09-3.23 MONO x10^3 (test code = 742-7) 1.31 10*3/uL 0.36-1.02 H EOS x10^3 (test code = 711-2) 0.22 10*3/uL 0.06-0.53 BASO x10^3 (test code = 704-7) 0.06 10*3/uL 0.01-0.09 Lab Interpretation (test code = 73704-1) Abnormal [facility] AliceCOMP. METABOLIC PANEL (82344)2023-04-22 18:47:31* Test Item Value Reference Range Interpretation Comme nts NA (test code = 6014100691) 138 mmol/L 135-145 K (test code = 1250924536) 3.9 mmol/L 3.5-5.0 CL (test code = 9385707102) 107 mmol/L 98-108 CO2 TOTAL (test code = 3737365373) 18 mmol/L 23-31 L AGAP (test code = 1521012553) 13 2-16 BUN (test code = 8804125909) 12 mg/dL 7-23 GLUCOSE (test code = 1399793481) 114 mg/dL 70-110 H CREATININE (test code = 9311447353) 0.65 mg/dL 0.60-1.25 TOTAL BILI (test code = 2807634358) 0.7 mg/dL 0.1-1.1 CALCIUM (test code = 8839481218) 9.2 mg/dL 8.6-10.6 T PROTEIN (test code = 1655807417) 8.3 g/dL 6.3-8.2 H ALBUMIN (test code = 8341400794) 4.5 g/dL 3.5-5.0 ALK PHOS (test code = 4566122429) 93 U/L 34-122 ALTv (test code = 1742-6) 30 U/L 5-50 AST(SGOT) (test code = 8333072883) 27 U/L 13-40 eGFR (test code = 2900517080) 133.4 mL/min/1.73m2 ALIREZA (test code = ALIREZA) Association of [...] or abnormalities in imaging tests). Lab Interpretation (test code = 31845-5) [facility]normal [facility] Alice[facility]ASE20[facility] 18:46:51* Test Item Value Reference Range Interpretation Comme nts LIPASE (test code = 7258307356) 237 U/L 0-220 H Lab Interpretation (test cod e = 02991-5) Abnormal [facility] AliceLOW-DENSITY LIPOPROTEIN, [id number] 16:56:14* Test Item Value Reference Range Interpretation Comme nts dLDL Chol (test code = 51020-4) 61 mg/dL <=130 Lab Interpretation (test cod e = 28599-8) Normal [facility] GLUCOSE (AUTOMATED)2022-11-04 14:32:40* Test Item Value Reference Range Interpretation Comme nts POCT GLU (test code = 6672883395) 95 mg/dL 70-110 Lab Interpretation (test cod e = 47995-6) Normal [facility] GLUCOSE (AUTOMATED)2022-11-04 13:38:56* Test Item Value Reference Range Interpretation Comme nts POCT GLU (test code = 0326312353) 121 mg/dL 70-110 H Lab Interpretation (test cod e = 64759-2) Abnormal [facility] GLUCOSE (AUTOMATED)2022-11-04 13:22:32* Test Item Value Reference Range Interpretation Comme nts POCT GLU (test code = 4961179139) 67 mg/dL 70-110 L Lab Interpretation (test cod e = 55789-8) Abnormal [facility] GLUCOSE (AUTOMATED)2022-11-04 12:29:17* Test Item Value Reference Range Interpretation Comme nts POCT GLU (test code = 6376815415) 174 mg/dL 70-110 H Lab Interpretation (test cod e = 87497-5) Abnormal [facility] GLUCOSE (AUTOMATED)2022-11-04 12:03:42* Test Item Value Reference Range Interpretation Comme nts POCT GLU (test code = 2375252505) 59 mg/dL 70-110 L Lab Interpretation (test cod e = 82605-2) Abnormal [facility] GLUCOSE (AUTOMATED)2022-11-04 10:30:11* Test Item Value Reference Range Interpretation Comme nts POCT GLU (test code = 7715524163) 69 mg/dL 70-110 L Lab Interpretation (test cod e = 92205-7) Abnormal [facility] GLUCOSE (AUTOMATED)2022-11-04 09:41:51* Test Item Value Reference Range Interpretation Comme nts POCT GLU (test code = 6516973856) 105 mg/dL 70-110 Lab Interpretation (test cod e = 99767-4) Normal [facility] GLUCOSE (AUTOMATED)2022-11-04 08:02:21* Test Item Value Reference Range Interpretation Comme nts POCT GLU (test code = 4940573349) 56 mg/dL 70-110 L Lab Interpretation (test cod e = 94083-2) Abnormal [facility] GLUCOSE (AUTOMATED)2022-11-04 06:56:54* Test Item Value Reference Range Interpretation Comme nts POCT GLU (test code = 9098616932) 84 mg/dL 70-110 Lab Interpretation (test cod e = 35039-3) Normal [facility] GLUCOSE (AUTOMATED)2022-11-04 06:06:41* Test Item Value Reference Range Interpretation Comme nts POCT GLU (test code = 6956401453) 123 mg/dL 70-110 H Lab Interpretation (test cod e = 02130-8) Abnormal [facility] GLUCOSE (AUTOMATED)2022-11-04 05:09:45* Test Item Value Reference Range Interpretation Comme nts POCT GLU (test code = 4054765131) 92 mg/dL 70-110 Lab Interpretation (test cod e = 88262-7) Normal [facility] AliceLIPID PANEL (50787)(TOTAL CHOLESTEROL, TRIGLYCERIDES, HDL)2022-11-04 04:00:19* Test Item Value Reference Range Interpretation Comme nts CHOL (test code = 5720670831) 296 mg/dL 120-200 H HDL (test code = 9255044146) 27 mg/dL >=40 L HDLC RATIO (test code = 8751264900) 11.0 <=5.0 H TRIG (test code = 9518894161) 1526 mg/dL 30-170 H LDL CHOL (test code = 78651-1) Unable to calcul ate LDL due to elevated triglyceride level greater than 400 mg/dL. VLDL (test code = 1783728083) Unable to calcul ate VLDL due to elevated triglyceride level greater than 710 mg/dL. Lab Interpretation (test code = 80324-3) Abnormal [facility] AliceETHANOL2023-04-15 23:23:05 ALCOHOL<10mg/dL11/03/2022 6:23 PM [facility]10 Mlyjmbtl54-273 Toxic>100 Depression of [employer]>400 Fatalities ReportedCH[facility]STUS [facility] AliceCOMP. METABOLIC PANEL (13389)2022-11-03 23:17:48* Test Item Value Reference Range Interpretation Comme nts NA (test code = 8867462464) 140 mmol/L 135-145 K (test code = 3309370075) 4.4 mmol/L 3.5-5.0 CL (test code = 9107964447) 106 mmol/L 98-108 CO2 TOTAL (test code = 9526609914) 23 mmol/L 23-31 AGAP (test code = 1825858609) 11 2-16 BUN (test code = 5085815335) 13 mg/dL 7-23 GLUCOSE (test code = 0742516970) 118 mg/dL 70-110 H CREATININE (test code = 7933487448) 0.65 mg/dL 0.60-1.25 TOTAL BILI (test code = 5321960119) 0.9 mg/dL 0.1-1.1 CALCIUM (test code = 5517848528) 9.4 mg/dL 8.6-10.6 T PROTEIN (test code = 3321328449) 7.6 g/dL 6.3-8.2 ALBUMIN (test code = 1215714699) 4.4 g/dL 3.5-5.0 ALK PHOS (test code = 3433062761) 92 U/L 34-122 ALTv (test code = 1742-6) 30 U/L 5-50 AST(SGOT) (test code = 2914203392) 26 U/L 13-40 eGFR (test code = 4123730300) 134.1 mL/min/1.73m2 ALIREZA (test code = ALIREZA) Association of [...] or abnormalities in imaging tests). Lab Interpretation (test code = 32708-2) [facility]normal [facility] 23:17:28* Test Item Value Reference Range Interpretation Comme nts LIPASE (test code = 6777915337) 176 U/L 0-220 Lab Interpretation (test cod e = 12317-9) Normal [facility] WITH [id number] 22:53:24* Test Item Value Reference Range Interpretation Comme nts WBC (test code = 6690-2) 10.57 See_Comment [Automated [employer] LocAsian] The system which generated this result transmitted reference range: 4.20 - 10.70 10*3/?L. The reference range was not used to interpret this result as normal/abnormal. RBC (test code = 789-8) 4.75 See_Comment [Automated [employer] LocAsian] The system which generated this result transmitted reference range: 4.26 - 5.52 10*6/?L. The reference range was not used to interpret this result as normal/abnormal. HGB (test code = 718-7) 15.5 g/dL 12.2-16.4 HCT (test code = 4544-3) 44.5 % 38.4-49.3 MCV (test code = 787-2) 93.7 fL 81.7-95.6 MCH (test code = 785-6) 32.6 pg 26.1-32.7 MCHC (test code = 786-4) 34.8 g/dL 31.2-35.0 RDW-SD (test code = 07814-0) 45.3 fL 38.5-51.6 RDW-CV (test code = 788-0) 13.2 % 12.1-15.4 PLT (test code = 777-3) 290 See_Comment [Automated [employer]] The system which generated this result transmitted reference range: 150 - 328 10*3/?L. The reference range was not used to interpret this result as normal/abnormal. MPV (test code = 17677-8) 9.9 fL 9.8-13.0 NRBC/100 WBC (test code = 3498537320) 0.0 See_Comment [Automated [employer] ssage] The system which generated this result transmitted reference range: 0.0 - 10.0 /100 WBCs. The reference range was not used to interpret this result as normal/abnormal. NRBC x10^3 (test code = 8150961026) See_Comment [Automated [employer]] The system which generated this result transmitted reference range: 10*3/?L. The reference range was not used to interpret this result as normal/abnormal. GRAN MAT (NEUT) % (test code = 770-8) 59.9 % IMM GRAN % (test code = 0398605559) 0.90 % LYMPH % (test code = 736-9) 29.6 % MONO % (test code = 5905-5) 6.1 % EOS % (test code = 713-8) 3.0 % BASO % (test code = 706-2) 0.5 % GRAN MAT x10^3(ANC) (test code = 3242869735) 6.33 10*3/uL 1.99-6.95 IMM GRAN x10^3 (test code = 7301294369) 0.09 10*3/uL 0.00-0.06 H LYMPH x10^3 (test code = 731-0) 3.13 10*3/uL 1.09-3.23 MONO x10^3 (test code = 742-7) 0.65 10*3/uL 0.36-1.02 EOS x10^3 (test code = 711-2) 0.32 10*3/uL 0.06-0.53 BASO x10^3 (test code = 704-7) 0.05 10*3/uL 0.01-0.09 Lab Interpretation (test code = 69361-9) [facility]normal [facility]29 01:44:51* Test Item Value Reference Range Interpretation Comme nts POCT GLU (test code = 0489747319) 127 mg/dL 70-110 H Lab Interpretation (test cod e = 42258-0) Abnormal [facility] AliceLIPID PANEL (46638)(TOTAL CHOLESTEROL, TRIGLYCERIDES, HDL)2022-03-28 15:24:23* Test Item Value Reference Range Interpretation Comme nts CHOL (test code = 0231838854) 257 mg/dL 120-200 H HDL (test code = 8949439587) 30 mg/dL See_Comment L [Automated messa ge] The system which generated this result transmitted reference range: >=40. The reference range was not used to interpret this result as normal/abnormal. HDLC RATIO (test code = 0065342619) See_Comment H [Automated messa ge] The system which generated this result transmitted reference range: <=5.0. The reference range was not used to interpret this result as normal/abnormal. TRIG (test code = 8021379273) 393 mg/dL 30-170 H LDL CHOL (test code = 03632-9) 148 mg/dL See_Comment [Automated messa ge] The system which generated this result transmitted reference range: <=160. The reference range was not used to interpret this result as normal/abnormal. VLDL (test code = 8407811227) 79 mg/dL 5-60 H Lab Interpretation (test code = 72072-7) Abnormal [facility] AliceMagnesium [id number] 15:24:03* Test Item Value Reference Range Interpretation Comme nts MAGNESIUM (test code = 4812682636) 1.7 mg/dL 1.7-2.4 Lab Interpretation (test cod e = 90076-4) Normal [facility] (NA, K, CL, CO2, GLUCOSE, BUN, CREATININE, CA)2022-03-28 15:24:03* Test Item Value Reference Range Interpretation Comme nts NA (test code = 3176020490) 139 mmol/L 135-145 K (test code = 1934749952) 4.4 mmol/L 3.5-5 CL (test code = 8327044395) 108 mmol/L 98-108 CO2 TOTAL (test code = 9862246599) 24 mmol/L 23-31 AGAP (test code = 0714613018) 2-16 BUN (test code = 5521700560) 16 mg/dL 7-23 GLUCOSE (test code = 6100594480) 151 mg/dL 70-110 H CREATININE (test code = 1510699741) 0.74 mg/dL 0.6-1.25 CALCIUM (test code = 4006829408) 8.9 mg/dL 8.6-10.6 eGFR (test code = 1580704706) mL/min/1.73m2 ALIREZA (test code = ALIREZA) Association of [...] or abnormalities in imaging tests). Lab Interpretation (test code = 24952-3) [facility]normal [facility] 15:23:03* Test Item Value Reference Range Interpretation Comme nts LIPASE (test code = 4765265266) 542 U/L 0-220 H Lab Interpretation (test cod e = 31986-0) Abnormal [facility] GLUCOSE (AUTOMATED)2022-03-28 14:14:53* Test Item Value Reference Range Interpretation Comme nts POCT GLU (test code = 4622075100) 158 mg/dL 70-110 H Lab Interpretation (test cod e = 31671-0) Abnormal [facility] GLUCOSE (AUTOMATED)2022-03-28 13:30:12* Test Item Value Reference Range Interpretation Comme nts POCT GLU (test code = 2033406917) 142 mg/dL 70-110 H Lab Interpretation (test cod e = 90011-7) Abnormal [facility] GLUCOSE (AUTOMATED)2022-03-28 12:03:24* Test Item Value Reference Range Interpretation Comme nts POCT GLU (test code = 5350398965) 126 mg/dL 70-110 H Lab Interpretation (test cod e = 60787-5) Abnormal [facility] GLUCOSE (AUTOMATED)2022-03-28 12:01:22* Test Item Value Reference Range Interpretation Comme nts POCT GLU (test code = 3940970772) 153 mg/dL 70-110 H Lab Interpretation (test cod e = 63164-5) Abnormal [facility] GLUCOSE (AUTOMATED)2022-03-28 10:06:41* Test Item Value Reference Range Interpretation Comme nts POCT GLU (test code = 6501133453) 129 mg/dL 70-110 H Lab Interpretation (test cod e = 35247-1) Abnormal [facility] GLUCOSE (AUTOMATED)2022-03-28 09:19:53* Test Item Value Reference Range Interpretation Comme nts POCT GLU (test code = 3753060913) 96 mg/dL 70-110 Lab Interpretation (test cod e = 02382-0) Normal [facility] GLUCOSE (AUTOMATED)2022-03-28 09:07:06* Test Item Value Reference Range Interpretation Comme nts POCT GLU (test code = 1800257240) 100 mg/dL 70-110 Lab Interpretation (test cod e = 14095-2) Normal [facility] GLUCOSE (AUTOMATED)2022-03-28 08:03:00* Test Item Value Reference Range Interpretation Comme nts POCT GLU (test code = 3037445476) 84 mg/dL 70-110 Lab Interpretation (test cod e = 97913-2) Normal [facility] Alice[facility]ENS[facility] LIPOPROTEIN, [id number] 07:07:47* Test Item Value Reference Range Interpretation Comme nts dLDL Chol (test code = 93603-9) 121 mg/dL See_Comment [Automated messa ge] The system which generated this result transmitted reference range: <=130. The reference range was not used to interpret this result as normal/abnormal. Lab Interpretation (test code = 33330-6) Normal [facility] GLUCOSE (AUTOMATED)2022-03-28 06:55:56* Test Item Value Reference Range Interpretation Comme nts POCT GLU (test code = 1079428911) 85 mg/dL 70-110 Lab Interpretation (test cod e = 88247-5) Normal [facility] GLUCOSE (AUTOMATED)2022-03-28 04:19:10* Test Item Value Reference Range Interpretation Comme nts POCT GLU (test code = 7237720077) 108 mg/dL 70-110 Lab Interpretation (test cod e = 94199-3) Normal [facility] AliceLIPID PANEL (81712)(TOTAL CHOLESTEROL, TRIGLYCERIDES, HDL)2022-03-27 23:43:53* Test Item Value Reference Range Interpretation Comme nts CHOL (test code = 4697373005) 314 mg/dL 120-200 H HDL (test code = 7928909771) 30 mg/dL See_Comment L [Automated messa ge] The system which generated this result transmitted reference range: >=40. The reference range was not used to interpret this result as normal/abnormal. HDLC RATIO (test code = 0083750818) See_Comment H [Automated messa ge] The system which generated this result transmitted reference range: <=5.0. The reference range was not used to interpret this result as normal/abnormal. TRIG (test code = 2471433931) 804 mg/dL 30-170 H LDL CHOL (test code = 76987-9) Unable to calcul ate LDL due to elevated triglyceride level greater than 400 mg/dL. VLDL (test code = 1632794467) Unable to calcul ate VLDL due to elevated triglyceride level greater than 710 mg/dL. Lab Interpretation (test code = 37193-5) Abnormal [facility] WITH DSCZ6182-55-12 21:40:45* Test Item Value Reference Range Interpretation Comme nts WBC (test code = 6690-2) See_Comment H [Automated message] The system which generated this result transmitted reference range: 4.20 - 10.70 10*3/?L. The reference range was not used to interpret this result as normal/abnormal. RBC (test code = 789-8) See_Comment [Automated message] The system which generated this result transmitted reference range: 4.26 - 5.52 10*6/?L. The reference range was not used to interpret this result as normal/abnormal. HGB (test code = 718-7) 16.0 g/dL 12.2-16.4 HCT (test code = 4544-3) 46.8 % 38.4-49.3 MCV (test code = 787-2) 90.3 fL 81.7-95.6 MCH (test code = 785-6) 30.9 pg 26.1-32.7 MCHC (test code = 786-4) 34.2 g/dL 31.2-35 RDW-SD (test code = 18997-8) 43.5 fL 38.5-51.6 RDW-CV (test code = 788-0) 13.0 % 12.1-15.4 PLT (test code = 777-3) See_Comment [Automated message] The system which generated this result transmitted reference range: 150 - 328 10*3/?L. The reference range was not used to interpret this result as normal/abnormal. MPV (test code = 12017-3) 10.2 fL 9.8-13 NRBC/100 WBC (test code = 2800077378) See_Comment [Automated message] The system which generated this result transmitted reference range: 0.0 - 10.0 /100 WBCs. The reference range was not used to interpret this result as normal/abnormal. NRBC x10^3 (test code = 4924425487) See_Comment [Automated message] The system which generated this result transmitted reference range: 10*3/?L. The reference range was not used to interpret this result as normal/abnormal. GRAN MAT (NEUT) % (test code = 770-8) 63.3 % IMM GRAN % (test code = 9607231559) 0.60 % LYMPH % (test code = 736-9) 27.7 % MONO % (test code = 5905-5) 6.5 % EOS % (test code = 713-8) 1.5 % BASO % (test code = 706-2) 0.4 % GRAN MAT x10^3(ANC) (test code = 8078713351) 10.15 10*3/uL 1.99-6.95 H IMM GRAN x10^3 (test code = 9544557786) 0.10 10*3/uL 0-0.06 H LYMPH x10^3 (test code = 731-0) 4.44 10*3/uL 1.09-3.23 H MONO x10^3 (test code = 742-7) 1.05 10*3/uL 0.36-1.02 H EOS x10^3 (test code = 711-2) 0.24 10*3/uL 0.06-0.53 BASO x10^3 (test code = 704-7) 0.07 10*3/uL 0.01-0.09 Lab Interpretation (test code = 46172-7) [facility]41* Test Item Value Reference Range Interpretation Comme nts ZULAY (test code = 5566368331) 129 U/L 35-110 H Lab Interpretation (test cod e = 87711-2) [facility]normal [facility] (81702)2022-03-27 20:58:34* Test Item Value Reference Range Interpretation Comme nts NA (test code = 9036622914) 140 mmol/L 135-145 K (test code = 1032606882) 4.0 mmol/L 3.5-5 CL (test code = 6145374102) 108 mmol/L 98-108 CO2 TOTAL (test code = 3763674673) 20 mmol/L 23-31 L AGAP (test code = 7060325508) 2-16 BUN (test code = 8918449423) 14 mg/dL 7-23 GLUCOSE (test code = 8022035914) 120 mg/dL 70-110 H CREATININE (test code = 9801649817) 0.86 mg/dL 0.6-1.25 TOTAL BILI (test code = 9825575308) 1.0 mg/dL 0.1-1.1 CALCIUM (test code = 7237614181) 9.9 mg/dL 8.6-10.6 T PROTEIN (test code = 9517311665) 7.9 g/dL 6.3-8.2 ALBUMIN (test code = 1534606516) 5.0 g/dL 3.5-5 ALK PHOS (test code = 2293109826) 90 U/L 34-122 ALTv (test code = 1742-6) 33 U/L 5-50 AST(SGOT) (test code = 1408310594) 26 U/L 13-40 eGFR (test code = 3011755333) mL/min/1.73m2 ALIREZA (test code = ALIREZA) Association of [...] or abnormalities in imaging tests). Lab Interpretation (test code = 63816-4) [facility]normal [facility] 20:58:14* Test Item Value Reference Range Interpretation Comme nts LIPASE (test code = 6796001907) 1142 U/L 0-220 H Lab Interpretation (test cod e = 54314-9) [facility]normal [facility] HEMOGLOBIN A1C WDEN6127-93-28 14:56:00* Test Item Value Reference Range Interpretation Comme nts POCT HBA1C (test code = 4548-4) 5.7 % 4-6 [facility] History and Physical Notes Date/Time Note Provider Source 2023-08-27 01:38:14 M1QLD9PQrAHp9/2AsdPT tIoBXjrmNQbjvSuf2wtBEr mLzMsKrP9IdGf6L9KIvQAH3995-47-93O48:38:14F ormatting of this note is different from the original.MEDICINE MEGAPA ADMIT H&PDate of Service: 4CHIEF COMPLAINT: abdominal painSubjectiveHistory of Present Badxfhk57 yo male with pmh of chronic recurrent pancreatitis, hypertriglyceridemia who presents to the ED secondary to abdominal pain for the past day. He describes it as epigastric abdominal pain that "wraps around" his abdomen. Associated symptoms: diarrhea (watery with frequency about 4x/day). No recent antibiotics. He states he is compliant with his medications.PAST MEDICAL HISTORYPast Medical History:Diagnosis DateChronic back painChronic recurrent pancreatitisSmokerPast Surgical History:Procedure Laterality DateAPPENDECTOMYINTRAOPERATIVE CHOLANGIOGRAM N/A 05/22/2019Surgeon: Katya Cleary MD; [facility] CHOLECYSTECTOMY N/A 05/22/2019Surgeon: Katya Cleary MD; [facility]OTHERTumor removal posterior head.Past Family HistoryNo family history on file.ALLERGIESNo Known AllergiesMEDICATIONSNo current facility-administered medications on file prior to encounter.Current Outpatient Medications on File Prior to EncounterMedication Sig Dispense Refillatorvastatin calcium (ATORVASTATIN ORAL) Take by mouth.FENOFIBRATE ORAL Take 1 capsule by mouth in the morning.lipase/protease/amylase (CREON ORAL) Take 1 capsule by mouth in the morning and 1 capsule at noon and 1 capsule in the evening. 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 Negative for abdominal distention, anal bleeding, blood in stool, constipation, nausea, rectal pain and vomiting.Genitourinary: Negative.Musculoskeletal: Negative.Skin: Negative.Neurological: Negative.Psychiatric/Behavioral: Negative.Endocrine: Endocrine negativeObjectivePHYSICAL EXAMINATIONVitals:08/26/23 2243 08/26/23 2300 08/27/23 0000BP: (!) 127/92 (!) 131/93 (!) 125/92Pulse: 105 88 73Resp: 16 12 20Temp: 36.7 ?C (98.1 ?F)TempSrc: OralSpO2: 99% 97% 98%Weight: 90.3 kg (199 lb)Height: 1.753 m (5' 9")Physical ExamVitals and nursing note reviewed.Constitutional:General: He is not in acute distress.Appearance: Normal appearance. He is not ill-appearing, toxic-appearing or diaphoretic.HENT:Head: Normocephalic and atraumatic.Right Ear: External ear normal.Left Ear: External ear normal.Nose: Nose normal. No congestion.Mouth/Throat:Mouth: Mucous membranes are moist.Pharynx: No oropharyngeal exudate or posterior oropharyngeal erythema.Eyes:General: No scleral icterus.Extraocular Movements: Extraocular movements intact.Conjunctiva/sclera: Conjunctivae normal.Pupils: Pupils are equal, round, and reactive to light.Cardiovascular:Rate and Rhythm: Normal rate and regular rhythm.Heart sounds: No murmur heard.No friction rub. No gallop.Pulmonary:Effort: Pulmonary effort is normal. No respiratory distress.Breath sounds: Normal breath sounds. No wheezing or rales.Abdominal:General: Abdomen is flat. Bowel sounds are normal. There is no distension.Palpations: Abdomen is soft.Tenderness: There is abdominal tenderness (epigastric). There is no guarding.Musculoskeletal:General: Normal range of motion.Cervical back: Normal range of motion and neck supple.Right lower leg: No edema.Left lower leg: No edema.Skin:General: Skin is warm and dry.Neurological:Mental Status: He is alert.LABS/IMAGING - reviewedEXAM: CT ABDOMEN PELVIS W CONTRASTHISTORY: 43 years-old Male: Abdominal pain, acute, nonlocalizedhx of chronic pancreatitis.TECHNIQUE: Contiguous axial imaging from the level of the lung basesthrough the proximal thighs was performed with intravenous contrast.Coronal and sagittal reconstructions were obtained.COMPARISON: NoneFINDINGS:LOWER THORAX: The lung bases are clear.LIVER: The liver is enlarged measuring 18.9 cm in craniocaudal dimensionand hypoattenuating. No focal hepatic lesion is seen.GALLBLADDER AND BILIARY TREE: Prior cholecystectomy with prominent commonbile duct measuring 11 mm, likely due to reservoir phenomenon.SPLEEN: The spleen appears unremarkable.PANCREAS: No ductal dilation or masses are visualized.ADRENAL GLANDS: No adrenal masses are seen.KIDNEYS: No hydronephrosis, stones, or solid masses are visualized.GI TRACT: No dilation or bowel wall thickening is seen. Appendectomy.PERITONEUM AND RETROPERITONEUM: No intra-abdominal free air or fluidcollection is visualized.PELVIS/BLADDER: The bladder is contracted, limiting evaluation. Theprostate appears normal in size.LYMPH NODES: No enlarged intra-abdominal or pelvic lymph nodes are found.VESSELS: The vessels appear unremarkable.BONES AND SOFT TISSUES: No suspicious lytic or sclerotic bony lesions arepresent. Spondylotic changes are manifested by .IMPRESSIONNo acute intra-abdominal abnormality.Hepatomegaly and hepatic steatosis.Cholecystectomy. Appendectomy.Assessment & PlanAnthony Nic Sue is a 43 year old male with PMH as listed above, admitted to the hospital with:Hypertriglyceridemia:-- Will start insulin drip with dextrose infusion-- Will check AM lipid panel-- Will resume atorvastatin and lofibraChronic recurrent pancreatitis:-- Will continue with LofibraProphylaxis: DVT- enoxaparinCode Status: Full Code ssociated attestation - Ifeoma Espinoza DO - 08/27/2023 3:03 PM CST I have independently seen and evaluated patient. On exam still complaining of abdominal pain. Noted hypoglycemia. Will increase D10/half-normal solution to 200 mL/h. Continue insulin drip. Lipase is improving. Discussed pain management strategy going forward. 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 Will transition to morphine [employer] SALESMAN along with Toradol (patient states Toradol does not work). [place] RN POOL was reviewed. Rest of plan events per H&J33474-1Isbcmku and physical [id number], David1.2.840.237861.1.13.104.2.7.2.997022V lyzbdSyhdvJC9062-98-38M60:03:25History and physical noteTXT1.2.840.089028.1.13.104.2.7.2.92492 9|[id number] for patient ecjw53735-8Snxrsyy and physical noteLNNARRATIVEFormatted C-CDA narrative textUT[address] Tfq[id number] VWBDYPRUCWDILHWE3179-35-74S83:03:251.2.840 .373160.1.72.3.15|1.2.840.623391.1.13.104. 2.7.2.727879_[id number] [facility] Notes Date/Time Note Provider Source 2023-11-18 19:51:13 DjFkmL74CCz+r45rNiGo3DvM4x75OoXyx6rKIuG oUjfQLiMdc+Kw59jXAquMeW2s2930-97-78S03: 51:13 Pt verbalized understanding of instructions, pt awake alert oriented, resp reg unlabored, skin w/d, color appropriate for race, moves all ext well,pt encouraged to follow up with pcp.Advised to seek medical attention for new/prolonged/worsening of symptoms.No adverse reaction to meds given in ER noted upon discharge.PIV d'cd, dressing to site, catheter in tact.Awake, alert oriented, resp reg unlabored, skin w/d, pt leaving amb with steady gait, in no apparent distress. 98737-7Ihcbvqcrx department XauvDO0361-47-04E41:51:53[facility] department NoteTXT1.2.840.700301.1.13.104.2.7.2.72 7879|[id number] for patient rrdi58987-9BmghCFHSKVDKHRSCywpdiiic C-CDA narrative iqea799758798Hpqlpa L Williams RN[address] EvxlUydydxlrjKxuuhszkeXFUV1809865793WXN PYHOGRBYLIGWVAYQATY9411-65-31C00:51:531 .2.840.696749.1.72.3.15|1.2.840.801520. 1.13.104.2.7.2.727879_[id number] Marcy Louis RN [facility] 2023-11-18 19:01:17 z6rOu+3H35eHKpJULri48Qk0yFPZRi+u+socYLb +FcMbgWG5A3Ej0bPSsZeKKLmT3287-10-91T31: 01:17 Nurse ReportReport given to BILL Vidal. Chief complaint, assessment findings, and orders reviewed. Plan of care discussed with [place] [address]-4Ohpdfjqln department TiiwQD2935-71-98B57:01:24[facility] department NoteTXT1.2.840.436383.1.13.104.2.7.2.72 7879|[id number] for patient hbky43463-3SvhnEKAAVBANRCCVbvtbyfov C-CDA narrative jnbe158260698Tegslyzt M Rivera RN[id number] DUPPEMZQUOBNKRJBSAA1868-00-24R50:01:241 .2.840.548804.1.72.3.15|1.2.840.839645. 1.13.104.2.7.2.727879_[id number] Mallorie Vieyra RN [facility] 2023-11-18 16:19:49 QOVzxhXgG8yeXHpJuveira4yrleLWyciB41iWBC TgQtUVuiRewCIDFXP48h1Es4F2488-72-94K18: 19:49 Pt c/o upper abdominal pain since last night, states "I think my pancreas is acting up again". Also c/o nausea, denies vomiting/diarrhea. 51546-6Ilmruxcdp department Triage ewstWO9556-02-46M47:20:30[facility] department Triage noteTXT1.2.840.422198.1.13.104.2.7.2.72 7879|[id number] for patient ewlx59496-2Wzehzzzfy department NoteLNNARRATIVEFormatted C-CDA narrative [id number] N Dewoody RN[id number] KVGXNHICGEXKMROKOEL2888-44-60Z08:20:301 .2.840.008109.1.72.3.15|1.2.840.880972. 1.13.104.2.7.2.727879_[id number] Kristina Castorena RN [facility] 2023-08-29 16:35:02 aPKOiTqM0ZLKfJ0rJ43bIyKKejjO4WXi77clbMb L5l9szmeJtxfXFEiPAdTNmYSC3354-28-58N99: 35:02 TRANSITIONAL CARE MANAGEMENT ASSESSMENT08/29/2023ntlizabeth XavierIhus417847LNepyici Edward Hawn is a 43 year old /White male was admitted on 08/26/23 to [facility] ICU. He was discharged on 08/28/23 with discharge disposition of HR- Routine Discharge.Admitting Physician: Sujata Fuchs Diagnosis: Pain of upper abdomenLinked EpisodesType: Episode: Status: Noted: Resolved: Last update: Updated by:TRANSITION OF CARE TCM Active 08/28/2023 08/29/2023 8:38 AM Margaret Hicks RNComments:08/28/2023TCM Hyd-dsyf-bj-face outreach documentation: Care Transition CM attempted to reach patient via telephone x2. Patient not available to speak. Patient will call CM back when he is available.Discharge AssessmentChart Assessed: 08/29/23TCM Outreach Completed: 08/29/23Future Appointments: 56434-5Nrirpkjfs encounter ZnwgHD2193-79-20I56:36:02Telephone encounter NoteTXT1.2.840.749824.1.13.104.2.7.2.72 7879|[id number] for patient hkbm91844-4EjemERYVIKQBIFVBsikwsjge C-CDA narrative [id number] MEJIA[address] CutgOayfdrfkzVmypfgmwvJGWF2677683347GQB MVWSPGQWBQHQHTKJBFR9561-13-59D59:36:021 .2.840.644043.1.72.3.15|1.2.840.306419. 1.13.104.2.7.2.727879_[id number] Margaret Hicks RN [facility] 2023-08-28 12:48:28 QVKK80IsOXJIbYqA7c/CELVw+dyBgBtHYeYHdBK F5BN+aqUlDOdqhKenjw+/sVv46635-37-52G92: 48:28 Problem: Discharge PlanningGoal: Adequate for dischargeOutcome: Adequate for dischargeProblem: Falls, Risk ofGoal: Absence of fallsOutcome: Adequate for dischargeProblem: Glucose Control - Initiated in Adult CCGoal: Glucose level within specified parametersOutcome: Adequate for dischargeProblem: PainGoal: Control of pain at or below patient's documented comfort goalOutcome: Adequate for dischargeGoal: Reduction in pain sensationOutcome: Adequate for discharge 30957-9Bfit of care ctdoVY6616-89-82Q44:48:31Plan of care noteTXT1.2.840.489260.1.13.104.2.7.2.72 7879|[id number] for patient gkjy38433-9XdhuRXOIBNDVIEUMotzqxygt C-CDA narrative wlhj196782148Kxuiithi Postorino RN[address] ObazKtcsxbteaLziguvwznSPDQ1724517623ADD FVIWBJLZZNAIISSBXZH1603-24-22N98:48:311 .2.840.295716.1.72.3.15|1.2.840.689612. 1.13.104.2.7.2.727879_[id number] Carol Stephens RN [facility] 2023-08-27 20:18:56 V3pUovuFe7E/vNiK7mFDnOG143ZvfG7YJwbEy7I 0yGLPY4HzsplmDG3jnspzzxln2697-99-40O39: 18:56 Problem: Discharge PlanningGoal: Adequate for dischargeOutcome: Progressing as expectedProblem: Falls, Risk ofGoal: Absence of fallsOutcome: Progressing as expectedProblem: Glucose Control - Initiated in Adult CCGoal: Glucose level within specified parametersOutcome: Progressing as expectedProblem: PainGoal: Control of pain at or below patient's documented comfort goalOutcome: Progressing as expectedGoal: Reduction in pain sensationOutcome: Progressing as expected 63319-2Xdkv of care zvhvFX8590-80-45Y31:19:05Plan of care noteTXT1.2.840.446482.1.13.104.2.7.2.72 7879|[id number] for patient nosl64646-0KbumQCIKDWSMSRERssunbjev C-CDA narrative mmbw402216648Jrjkbfy L Schaatt RNUT[address] VvltQirfqraxdLvfnikfyrYGUJ6903691823OCH KIXZSCEHEAEAOIBFUDM5050-22-21X40:19:051 .2.840.905370.1.72.3.15|1.2.840.636350. 1.13.104.2.7.2.727879_[id number] Cheryl Benavidez RN [facility] 2023-08-27 18:26:45 RR4EBmuVcJOrVSYpnNBVuUo/IvXCC/025krCT4D 4fRC27aDLKFL+M3aK9Fhpzpk17768-40-34E99: 26:45 Problem: Discharge PlanningGoal: Adequate for dischargeOutcome: Progressing as expectedProblem: Falls, Risk ofGoal: Absence of fallsOutcome: Progressing as expectedProblem: Glucose Control - Initiated in Adult CCGoal: Glucose level within specified parametersOutcome: Progressing as expectedProblem: PainGoal: Control of pain at or below patient's documented comfort goalOutcome: Progressing as expectedGoal: Reduction in pain sensationOutcome: Progressing as expectedProblem: Discharge PlanningGoal: Adequate for dischargeOutcome: Progressing as expectedProblem: Falls, Risk ofGoal: Absence of fallsOutcome: Progressing as expectedProblem: Glucose Control - Initiated in Adult CCGoal: Glucose level within specified parametersOutcome: Progressing as expectedProblem: PainGoal: Control of pain at or below patient's documented comfort goalOutcome: Progressing as expectedGoal: Reduction in pain sensationOutcome: Progressing as expectedProblem: Discharge PlanningGoal: Adequate for dischargeOutcome: Progressing as expectedProblem: Falls, Risk ofGoal: Absence of fallsOutcome: Progressing as expectedProblem: Glucose Control - Initiated in Adult CCGoal: Glucose level within specified parametersOutcome: Progressing as expectedProblem: PainGoal: Control of pain at or below patient's documented comfort goalOutcome: Progressing as expectedGoal: Reduction in pain sensationOutcome: Progressing as expected 97303-9Qijr of care iamsSP3412-30-20T32:26:54Plan of care noteTXT1.2.840.424495.1.13.104.2.7.2.72 7879|[id number] for patient zxxl64693-4GohnPFKFZAKDSQPOiksjjgvp C-CDA narrative textUT[address] BmcdTcuvegoynOpdmoeanjRMPC4463325931YID VYRASSKOVPYDOSOEAIK8697-16-74K62:26:541 .2.840.941829.1.72.3.15|1.2.840.807072. 1.13.104.2.7.2.727879_[id number] [facility] 2023-08-27 03:49:56 fQVXGWvrq3TQIJW+L468BPnxIFZF2BGzME4ynb5 tuh66dBbOdgm1/lbww7SmOX7X9650-30-82N23: 49:56 Problem: Discharge PlanningGoal: Adequate for dischargeOutcome: Progressing as expectedProblem: Falls, Risk ofGoal: Absence of fallsOutcome: Progressing as expectedProblem: Glucose Control - Initiated in Adult CCGoal: Glucose level within specified parametersOutcome: Progressing as expectedProblem: PainGoal: Control of pain at or below patient's documented comfort goalOutcome: Progressing as expectedGoal: Reduction in pain sensationOutcome: Progressing as expected 44207-5Klxg of care gwtqNE0228-24-41T64:50:01Plan of care noteTXT1.2.840.460945.1.13.104.2.7.2.72 7879|[id number] for patient fxui96138-7YbacUAUGOUBOFNDOrnfbayol C-CDA narrative ldwz142492944Mhmhs Perez RN[address] CdlrDvzjrwzwxKamyywhmyDZED8798111506NMR JVINLMZVTOXXBPKSMMT1275-23-37H73:50:011 .2.840.470532.1.72.3.15|1.2.840.846303. 1.13.104.2.7.2.727879_[id number] Gosia Taylor RN [facility] 2023-08-27 02:15:03 kO7nD+KYQrO/DKotkMX58jbsXUUQffP/gfgZ302 Q7n23WgQApauX9h7NPzcopyIV8551-00-06Q04: 15:03 Patient admitted to 2105 for diagnosis of pain of upper abdomen.Patient agrees to admission, discussed plan of care with patient and family.Patient is awake, alert, oriented, resp reg unlabored, color appropriate for race, PIV intactNo adverse reaction to medications administered while in EDBelongings with patient to unitReport to BILL Elise 09381-8Uyoqtcgwe department PnqcWE9590-41-99W47:19:14[facility] department NoteTXT1.2.840.960463.1.13.104.2.7.2.72 7879|[id number] for patient bavk73582-4JzntVNRNDRHTYMLJvvgaqdnt C-CDA narrative cfie047887169Cfepzg D Roman RN[id number] IJFSTLLBWLOVIUNPABJ7376-95-04C17:19:141 .2.840.406651.1.72.3.15|1.2.840.346435. 1.13.104.2.7.2.727879_[id number] Jewell Ferguson RN [facility] 2023-08-27 01:01:10 SyPqLKtAc6g3wLJL0nteY8161njwGkRnf8nrWpL mQxezw2GFL8SCsI1KD3VjIFDT1924-94-26B24: 01:10 Report given to BILL Corcoran 89423-9Xdnlflmhx department OirhHQ8715-93-27L73:02:04[facility] department NoteTXT1.2.840.435843.1.13.104.2.7.2.72 7879|[id number] for patient eouc09370-5GebuQJYCRZDNGGJQssnlbfdx C-CDA narrative nhzg459534955Qwifn M Martinez RN[id number] ABMYQMBQWSXZQNPUEYU1963-42-76A63:02:041 .2.840.079540.1.72.3.15|1.2.840.615361. 1.13.104.2.7.2.727879_[id number] Brigette Rogers RN [facility] 2023-08-26 22:38:11 5oZGYPw1TwtjE+06SDbXlPqr01Ltchfro/5WwZw [place]/k4Dp1UvbBOFbeyb5vB7Sbq5538-59-77W51: 38:11Summary: Triage ,CC: Patient states he ia having abdominal pain that started Saturday night and has had diarrhea since Saturday. Patient states that he has a history of pancreatitis.PMHx: pancereatitisPSH:appy, gallbladderMEDS:phenLMP: NATetanus: UTDAwake, alert, oriented, resp reg unlabored, skin warm, color appropriate for race, moves all ext without difficulty, amb with out assistanceAppears in no distress 38415-2Alhyvypvd department Triage ugavLP7228-62-61M87:42:52[facility] Triage noteTXT1.2.840.458680.1.13.104.2.7.2.72 7879|[id number] for patient wmip95078-3Jdunomqmc department NoteLNNARRATIVEFormatted C-CDA narrative [id number] Schroeder RN[address] JqmySkbyvpupxEgsfblhzfQXPE5247498490QGC ZNDDWYMWYDMVFOLTTKM0137-14-98D72:42:521 .2.840.195261.1.72.3.15|1.2.840.011541. 1.13.104.2.7.2.727879_[id number] Laura Simons RN [facility] 2023-08-26 22:34:00 Rx33hrhMIR1D5rxZEUOT6xPP3euS/lOThaTXAcQ NQQvwB8WW8YYBB27nS8MOXq2l2734-00-90N14: 34:00 [facility] Emergency Department NotePatient Name: Danielito Copeland of : 1980 43 year old maleTreatment Room: [facility] Record Number: [id number] Care Physician: Diana VergaraPatient Escorted by: Self [9]Mode of Arrival: Personal means [1]EMS Treatment Prior to ED Arrival:[employer] treatment: Analgesic;NoneTravel and Exposure Screening:SymptomsDoes patient have any of these symptoms?: (not recorded)Exposure ScreeningHas patient had contact with someone with a communicable disease in the last month?: (not recorded)Diseases exposed to:: (not recorded)Is Patient ?: (not recorded)Exposure Date: (not recorded)Chief Complaint:Chief ComplaintPatient presents withAbdominal PainDiarrheaHistory of Present Illness:Danielito Sue is a 43 year old male with numerous medical conditions as listed below who presents to the ED with upper abdominal pain X 2 days Pt has recurrent similar pain for the past five years and is usually due to chronic pancreatitis due to elevated triglyceridemia. No fever. No chills. Denies any vomiting but has been having diarrhea each time he eats. Pt has taken Hydrocodone and Tylenol at home without relief of symptoms prompting ED visit. Pain is described as a "band" across the upper abdomen is is currently rated at 5/10History provided by: Medical records and patientLanguage site interpreter used: NoAbdominal PainPain location: LUQ and RUQPain radiates to: Does not radiatePain severity: SevereOnset quality: GradualDuration: 2 daysTiming: ConstantChronicity: RecurrentContext: eatingContext: not awakening from sleep, not diet changes, not medication withdrawal, not previous surgeries, not recent illness, not recent travel, not retching, not sick contacts, not suspicious food intake and not traumaRelieved by: NothingWorsened by: NothingIneffective treatments: None triedAssociated symptoms: anorexia, diarrhea and nauseaAssociated symptoms: no belching, no chest pain, no chills, no constipation, no cough, no dysuria, no fatigue, no fever, no flatus, no hematemesis, no hematochezia, no hematuria, no melena, no shortness of breath, no sore throat and no vomitingRisk factors: multiple surgeriesRisk factors: no NSAID use, not obese and no recent hospitalizationPast Medical History/Immunizations:Past Medical History:Diagnosis DateChronic back painChronic recurrent pancreatitisSmokerTetanus received in last 5 years: YesAllergies:No Known AllergiesPast Social History:Tobacco UseEvery Day; 0.50 packs/day for 20.00 years; Types: CigarettesPassive Exposure: CurrentSmokeless Tobacco: Never used smokeless tobacco.Vaping UseNever usedAlcohol UseNot Currently.Drug UseNot Currently.Past Surgical History:Past Surgical History:Procedure Laterality DateAPPENDECTOMYINTRAOPERATIVE CHOLANGIOGRAM N/A 05/22/2019Surgeon: Katya Cleary MD; [facility]APAROSCOPIC CHOLECYSTECTOMY N/A 05/22/2019Surgeon: Katya Cleary MD; Location[facility] OR LocationOTHERTumor removal posterior head.Review of Systems:Review of SystemsConstitutional: Negative. Negative for chills, fatigue and fever.HENT: Negative. Negative for sore throat.Eyes: Negative.Respiratory: Negative. Negative for cough and shortness of breath.Breasts: Negative.Cardiovascular: Negative. Negative for chest pain.Gastrointestinal: Positive for abdominal pain, anorexia, diarrhea and nausea. Negative for abdominal distention, anal bleeding, blood in stool, constipation, flatus, hematemesis, hematochezia, melena, rectal pain and vomiting.Genitourinary: Negative. Negative for dysuria and hematuria.Musculoskeletal: Negative.Skin: Negative.Neurological: Negative.Psychiatric/Behavioral: Negative.All other systems reviewed and are negative.Endocrine: Endocrine negativePhysical Exam:ED Triage Vitals [08/26/23 2243]Weight 90.3 kg (199 lb)Actual or estimated ActualHeight 1.753 m (5' 9")BP (!) 127/92Pulse 105Resp 16Temp 36.7 ?C (98.1 ?F)Temp source OralSpO2 99 %Measured on Room airPhysical ExamVitals and nursing note reviewed.Constitutional:General: He is not in acute distress.Appearance: Normal appearance. He is well-developed and normal weight. He is not ill-appearing, toxic-appearing or diaphoretic.HENT:Head: Normocephalic and atraumatic.Nose: Nose normal. No congestion or rhinorrhea.Mouth/Throat:Mouth: Mucous membranes are moist.Pharynx: Oropharynx is clear.Eyes:General: No scleral icterus.Right eye: No discharge.Left eye: No discharge.Extraocular Movements: Extraocular movements intact.Conjunctiva/sclera: Conjunctivae normal.Pupils: Pupils are equal, round, and reactive to light.Cardiovascular:Rate and Rhythm: Normal rate and regular rhythm.Pulses: Normal pulses.Heart sounds: Normal heart sounds. No murmur heard.Pulmonary:Effort: Pulmonary effort is normal. No respiratory distress.Breath sounds: Normal breath sounds. No stridor. No wheezing, rhonchi or rales.Abdominal:General: Bowel sounds are normal. There is no distension.Palpations: Abdomen is soft. There is no mass.Tenderness: There is abdominal tenderness. There is no right CVA tenderness, left CVA tenderness, guarding or rebound.Hernia: No hernia is present.Musculoskeletal:General: No swelling, tenderness, deformity or signs of injury. Normal range of motion.Cervical back: Normal range of motion and neck supple. No rigidity or tenderness.Right lower leg: No edema.Left lower leg: No edema.Lymphadenopathy:Cervical: No cervical adenopathy.Skin:General: Skin is warm and dry.Capillary Refill: Capillary refill takes less than 2 seconds.Coloration: Skin is not jaundiced or pale.Findings: No bruising, erythema, lesion or rash.Neurological:Mental Status: He is alert and oriented to person, place, and time. Mental status is at baseline.Cranial Nerves: No cranial nerve deficit.Sensory: No sensory deficit.Motor: No weakness.Coordination: Coordination normal.Gait: Gait normal.Deep Tendon Reflexes: Reflexes normal.Psychiatric:Behavior: Behavior normal.Thought Content: Thought content normal.Judgment: Judgment normal.Radiology:CT ABDOMEN PELVIS W CONTRASTPreliminary ResultEXAM: CT ABDOMEN PELVIS W CONTRASTHISTORY: 43 years-old Male: Abdominal pain, acute, nonlocalizedhx of chronic pancreatitis.TECHNIQUE: Contiguous axial imaging from the level of the lung basesthrough the proximal thighs was performed with intravenous contrast.Coronal and sagittal reconstructions were obtained.COMPARISON: NoneFINDINGS:LOWER THORAX: The lung bases are clear.LIVER: The liver is enlarged measuring 18.9 cm in craniocaudal dimensionand hypoattenuating. No focal hepatic lesion is seen.GALLBLADDER AND BILIARY TREE: Prior cholecystectomy with prominent commonbile duct measuring 11 mm, likely due to reservoir phenomenon.SPLEEN: The spleen appears unremarkable.PANCREAS: No ductal dilation or masses are visualized.ADRENAL GLANDS: No adrenal masses are seen.KIDNEYS: No hydronephrosis, stones, or solid masses are visualized.GI TRACT: No dilation or bowel wall thickening is seen. Appendectomy.PERITONEUM AND RETROPERITONEUM: No intra-abdominal free air or fluidcollection is visualized.PELVIS/BLADDER: The bladder is contracted, limiting evaluation. Theprostate appears normal in size.LYMPH NODES: No enlarged intra-abdominal or pelvic lymph nodes are found.VESSELS: The vessels appear unremarkable.BONES AND SOFT TISSUES: No suspicious lytic or sclerotic bony lesions arepresent. Spondylotic changes are manifested by .IMPRESSIONNo acute intra-abdominal abnormality.Hepatomegaly and hepatic steatosis.Cholecystectomy. Appendectomy.Preliminary Report Dictated by Resident: Jhon Selby Results:Lab ResultsCOMP. METABOLIC PANEL (69724) - AbnormalResult Value Ref RangeNA 140 135 - 145 mmol/LK 3.4 (*) 3.5 - 5.0 mmol/LCL 111 (*) 98 - 108 mmol/LCO2 TOTAL 19 (*) 23 - 31 mmol/LAGAP 10 2 - 16BUN 12 7 - 23 mg/dLGLUCOSE 135 (*) 70 - 110 mg/dLCREATININE 0.72 0.60 - 1.25 mg/dLTOTAL BILI 1.2 (*) 0.1 - 1.1 mg/dLCALCIUM 9.3 8.6 - 10.6 mg/Ze PROTEIN 8.3 (*) 6.3 - 8.2 g/dLALBUMIN 4.6 3.5 - 5.0 g/dLALK PHOS 105 34 - 122 U/LALTv 33 5 - 50 U/LAST(SGOT) 32 13 - 40 U/LeGFR 115.5 mL/min/1.84o0OXE WITH DIFF - AbnormalWBC 14.05 (*) 4.20 - 10.70 10*3/?LRBC 4.92 4.26 - 5.52 10*6/?LHGB 16.2 12.2 - 16.4 g/dLHCT 46.7 38.4 - 49.3 %MCV 94.9 81.7 - 95.6 fLMCH 32.9 (*) 26.1 - 32.7 pgHC 34.7 31.2 - 35.0 g/dLRDW-SD 45.6 38.5 - 51.6 fLRDW-CV 13.2 12.1 - 15.4 %PLT 335 (*) 150 - 328 10*3/?LMPV 9.8 9.8 - 13.0 fLNRBC/100 WBC 0.0 0.0 - 10.0 /100 WBCsNRBC x10^3 <0.01 10*3/?LSEG % 52 33 - 76 %LYMPH % 32 14 - 54 %MONO % 8 (*) 0 - 4 %EOS % 8 (*) 0 - 3 %ANC 7.31 (*) 1.99 - 6.95 10*3/uLLIPASE - AbnormalLIPASE 277 (*) 0 - 220 U/LURINALYSIS - AbnormalAPPEARANCE Hazy (*) ClearCOLOR Deborah (*) YellowPH 5.0 4.8 - 8.0SP GRAVITY 1.031 (*) 1.003 - 1.030GLU U QUAL Normal NormalBLOOD Negative NegativeKETONES 5 mg/dL (*) NegativePROTEIN 100 mg/dL (*) NegativeUROBILIN 4.0 mg/dL (*) NormalBILIRUBIN 2 mg/dL (*) NegativeNITRITE Negative NegativeLEUK HALLEY Negative NegativeRBC/HPF 0 0 - 3 HPFWBC/HPF 0 0 - 5 HPFBACTERIA Negative NegativeMUCOUS Marked (*) Negative LPFSQ EPITH 1 HPFIctotest PositiveLIPID PANEL (61028)(TOTAL CHOLESTEROL, TRIGLYCERIDES, HDL) - AbnormalCHOL 322 (*) 120 - 200 mg/dLHDL 29 (*) >40 mg/dLHDLC RATIO 11.1 (*) <=5.0TRIG 1,018 (*) 30 - 170 mg/dLLDL CHOLVLDLLOW-DENSITY LIPOPROTEIN, DIRECTCBC WITH DIFFBASIC METABOLIC PANEL (NA, K, CL, CO2, GLUCOSE, BUN, CREATININE, CA)POCT GLUCOSE(AGE >30DAYS)Orders and Treatments:Orders Placed This EncounterProceduresCT ABDOMEN PELVIS W CONTRASTComplete Metabolic PanelCBC with DifferentialLipase, SerumUrinalysisLipid Panel (97541)(Total Cholesterol, Triglycerides, HDL)Low-Density Lipoprotein, DirectCBC with DifferentialBasic Metabolic Panel (NA, K, CL, CO2, Glucose, BUN, Creatinine, CA)POCT Glucose (Age >30 Days)Orders Placed This EncounterMedicationsatorvastatin calcium (ATORVASTATIN ORAL)morpHINE (4 mg/mL) injection 4 mgondansetron (ZOFRAN (PF)) injection 4 mgDISCONTD: NaCl 0.9% (NS) IV infusion 1,000 mLmorpHINE (4 mg/mL) injection 4 mgiopamidol (ISOVUE 370-500 mL) injection 100 mLenoxaparin (LOVENOX) injection 40 mgdextrose 50 % in water (D50W) injection 25 mLglucagon (GLUCAGEN DIAGNOSTIC KIT) injection 1 mginsulin regular human (HUMULIN R) 100 Units in D5W 100 mL sezpisyjJ2X 0.45% NaCl (1/2NS) IV infusion 1,000 mLFirst Provider Eval:ED EventsDate/Time Event User [id number] Medical Screening Begins ISIDRO AMAYA MD --08/26/232255 First Provider Evaluation ISIDRO AMAYA MD --AdmissionCareGuideline: Systemic / Infectious Condition, InpatientBased on the indications selected for the patient, the bed status of Inpatient was determined to be METThe following indications were selected as present at the time of evaluation of the patient:- Systemic or Infectious Condition, symptom, or finding for which observation care has failed or is not considered appropriate. See General Criteria: Observation Care, General Admission Criteria, or Pediatric General Admission Criteria guideline as appropriate.AdmissionCare documentation entered by: Isidro Payne Formerly [facility], 27th edition, Copyright ? 2022 [facility] [place] [employer] [facility] All Rights Reserved.[id number]:56:51-06:00ED COURSEDiagnosis/Impression as of 08/27/23 0200Acute recurrent pancreatitisHypertriglyceridemiaProcedu res:ProceduresMDM:Medical Decision MakingAnthryland Sue is a 43 year old male with numerous medical conditions as listed below who presents to the ED with upper abdominal pain X 2 daysProblems Addressed:Acute recurrent pancreatitis: acute illness or injuryDetails: Acute-on -chronic pancreatitisPt requiring multiple doses of opoid analgesics in the ED and pain is still uncontrolledWill admit for further management and pain controlHypertriglyceridemia:Details: Ethjq-fx-XopdguxPxag admit for further managementInsulin gtt initiatedAmount and/or Complexity of Data ReviewedExternal Data Reviewed: labs, radiology and notes.Labs: ordered. Decision-making details documented in ED Course.Radiology: ordered. Decision-making details documented in ED Course.Discussion of management or test interpretation with external provider(s): Discussed presentation, laboratory imaging and ED management with Dr Fuchs, Hospitalist who has accepted pt for further evaluation and managementRiskPrescription drug management.Parenteral controlled substances.Drug therapy requiring intensive monitoring for toxicity.Decision regarding hospitalization.Flowsheet Documentation:Scoring Tools:No data recordedDisposition/Condition:ED DispositionED DispositionAdmit - ICUCondition--Comment--Discharge Medications:Patient's MedicationsSTART taking these medicationsNo medications on fileCONTINUE taking these medications which have NOT CHANGEDATORVASTATIN CALCIUM (ATORVASTATIN ORAL) Take by mouth.FENOFIBRATE ORAL Take 1 capsule by mouth in the morning.LIPASE/PROTEASE/AMYLASE (CREON ORAL) Take 1 capsule by mouth in the morning and 1 capsule at noon and 1 capsule in the evening. Take with meals.START taking Modified Medications as PrescribedNo medications on fileSTOP taking these medicationsNo medications on fileFollow-up:Electronically signed by:Isidro Amaya MD08/27/23 0200 [id number] Emergency department [id number]:00:47Physician Emergency department [id number] for patient [id number] department NoteLNNARRATIVEFormatted C-CDA narrative textUT[address] [id number] DLVWKSJUSHRHBARTYRO3217-29-93Q65:00:471 .[id number]|[id number]. [id number] [facility] 2023-08-26 22:34:00 3DWfUMYlmyo4qeUZJvt+Q+Q/fHevpYTVi+xeuEY CQm6HJFOf742+S0/[id number]: 34:00 AdmissionCareGuideline: Systemic / Infectious Condition, InpatientBased on the indications selected for the patient, the bed status of Inpatient was determined to be METThe following indications were selected as present at the time of evaluation of the patient:- Systemic or Infectious Condition, symptom, or finding for which observation care has failed or is not considered appropriate. See General Criteria: Observation Care, General Admission Criteria, or Pediatric General Admission Criteria guideline as appropriate.AdmissionCare documentation entered by: Isidro Payne Formerly [facility], 27th edition, Copyright ? 2022 [facility] [place] [employer] [facility] All Rights Reserved.[id number]:56:51-06:00Elect ronically signed by Isidro Amaya MD at 08/27/2023 1:56 AM [id number] Admission [id number]:56:51EC Admission [id number]. [id number] for patient [id number] C-CDA narrative textUT[address] [id number] [id number]:56:511 .2.840.700768.1.72.3.15|1.2.840.873637. [id number] [facility]
[2023-11-19] MEDS ORDERED: NA CHLORIDE 0.9% 1,000 ML ONE (01:15)
[2023-11-19 01:48] LABS: Absolute Basophils 0.1 K/uL (0-0.5); Absolute Eosinophils 0.4 K/uL (0-0.5); Absolute Lymphocytes (CBC) 3.7 K/uL (0.7-4.9); Absolute Neutrophil 7.7 K/uL (1.8-8.0); Basophils % 0.7 % (0-1.3); Eosinophils % 3.1 % (0-4.4); Hematocrit 42.6 % (39.6-49.0); Hemoglobin 14.3 g/dL (13.6-17.9); Lymphocytes % 28.6 % (15.3-44.8); MCH 32.2 pg (27.0-35.0); MCHC 33.7 g/dL (32.0-36.0); MCV 95.7 fL (80-100); MPV 9.1 fL (7.6-11.3); Monocytes % 7.4 % (3.3-12.3); Neutrophils % 60.2 % (41.7-73.7); Nucleated Red Blood Cells % 0.1 % (0-0); Platelets 252 thou/uL (152-406); RBC Red Blood Cell Count 4.45 M/uL (4.33-5.43); Red Cell Distribution Width 13.4 % (12.1-15.2)
[2023-11-19 02:04] LABS: Albumin 3.7 g/dL (3.4-5.0); Anion Gap 6.3 mEq/L (5.0-15.0); Bilirubin Total 0.8 mg/dL (0.2-1.0); Globulin 3.6 g/dL (2.3-3.5); Protein, Total 7.3 g/dL (6.4-8.2)
[2023-11-19] MEDS ORDERED: MORPHINE 4 MG/ML SYR ONE ×2 (02:12→03:34)
[2023-11-19] MEDS ORDERED: FAMOTIDINE 20 MG/2 ML VIAL IV ONE (02:12)
[2023-11-19] MEDS ORDERED: ONDANSETRON 4 MG/2 ML VIAL ONE (02:12)
[2023-11-19 02:15] LABS: Potassium 3.3 mEq/L (3.5-5.1)
[2023-11-19 02:52] LABS: Barbiturates NEGATIVE (NEGATIVE); Benzodiazepines NEGATIVE (NEGATIVE); Cocaine NEGATIVE (NEGATIVE); METHAMPHETAM NEGATIVE (NEGATIVE); Methadone NEGATIVE (NEGATIVE); Opiates NEGATIVE (NEGATIVE); Phencyclidine NEGATIVE (NEGATIVE); Sqamous Epithelial <5 /HPF (None Seen); THC Cannibis NEGATIVE (NEGATIVE); Urine Bacteria None Seen /HPF (<20); Urine Bilirubin NEGATIVE (Negative); Urine Blood Negative (Negative); Urine Clarity Clear (Clear); Urine Color Yellow (Yellow); Urine Culture Reflex Order NOT NEEDED; Urine Glucose NEGATIVE (Negative); Urine Ketones NEGATIVE (Negative); Urine Microscopic Reflex YN ORDER UMIC; Urine Mucus Slight /HPF (None Seen); Urine Nitrite NEGATIVE (Negative); Urine Protein 1+ (Negative); Urine RBC <5 /HPF (None Seen); Urine Urobilinogen Normal (Normal); Urine WBC <5 /HPF (<5); Urine pH 6.5 (5.0-7.0)
[2023-11-19 02:56] LABS: Specific Gravity > 1.030 (1.005-1.030)
--- NOTE | 2023-11-19 04:49 | EDPHYS ---
Physician Documentation [facility] Name: Danielito Sue Age: 43 yrs Sex: Male : 1980 Arrival Date: 11/19/2023 Time: 00:07 Bed 5 Private MD: ED Physician Donis Chambers HPI: 11/18 01:00 This 43 yrs old Male presents to ER via Ambulatory with complaints of Abdominal Pain. cp 01:00 The patient presents with abdominal pain in the upper abdomen, mid abdomen. Onset: The cp symptoms/episode began/occurred this past Saturday. Associated signs and symptoms: Pertinent positives: nausea, Pertinent negatives: blood in stools, chest pain, constipation, diarrhea, fever, testicular pain, vomiting. Historical: - Allergies: 00:36 No Known Allergies; vc1 - PMHx: 00:36 Pancreatitis; vc1 - PSHx: 00:36 Appendectomy; Cholecystectomy; vc1 - Immunization history:: Client reports having NOT received the Covid vaccine. Flu vaccine is not up to date. - Infectious Disease History:: Denies. - Social history:: Smoking status: Patient reports the use of cigarette tobacco products, smokes one-half pack cigarettes per day. - Family history:: not pertinent. ROS: 01:04 Constitutional: Negative for body aches, chills, fever, poor PO intake, cp 01:04 Cardiovascular: Negative for chest pain, palpitations, 01:04 Respiratory: Negative for cough, shortness of breath, wheezing, 01:04 Abdomen/GI: Positive for abdominal pain, nausea, Negative for vomiting, diarrhea, constipation, 04:43 Constitutional: Negative for fever, chills, and weight loss, positive for reported sp4 abdominal pain 04:43 All other systems are negative, Exam: 01:10 Constitutional: The patient appears in no acute distress, alert, awake, cp non-diaphoretic, non-toxic, well developed, well nourished, uncomfortable, 01:10 Head/Face: Normocephalic, atraumatic. cp 01:10 Eyes: Periorbital structures: appear normal, Conjunctiva: normal, no exudate, no injection, Sclera: no appreciated abnormality, Lids and lashes: appear normal, bilaterally, 01:10 ENT: External ear(s): are unremarkable, Nose: is normal, Mouth: Lips: moist, Oral mucosa: pink and intact, moist, 01:10 Chest/axilla: Inspection: normal, 01:10 Cardiovascular: Rate: normal, Rhythm: regular, 01:10 Respiratory: the patient does not display signs of respiratory distress, Respirations: normal, no use of accessory muscles, no retractions, labored breathing, is not present, Breath sounds: are clear throughout, no decreased breath sounds, no stridor, no wheezing, 01:10 Abdomen/GI: Inspection: abdomen appears normal, Bowel sounds: active, all quadrants, Palpation: soft, in all quadrants, moderate abdominal tenderness, in the right upper quadrant and left upper quadrant, rebound tenderness, is not appreciated, voluntary guarding, is elicited in the right upper quadrant and left upper quadrant, Vital Signs: 00:33 BP 133 / 104; Pulse 88; Resp 18; Temp 97.8; Pulse Ox 100% ; Weight 92.99 kg; Height 5 vc1 ft. 9 in. ; Pain 6/10; 02:00 BP 132 / 83; Pulse 67; Resp 18 S; Pulse Ox 99% on R/A; jw7 03:30 BP 124 / 87; Pulse 65; Resp 18 S; Pulse Ox 99% on R/A; ha1 05:02 BP 124 / 93; Pulse 61; Resp 16 S; Pulse Ox 100% on R/A; jw7 00:33 Body Mass Index 30.27 (92.99 kg, 175.26 cm) vc1 00:33 Pain Scale: Adult vc1 MDM: 00:42 Patient medically screened. cp 01:00 Differential diagnosis: non-specific abd pain, pancreatitis, Peptic Ulcer Disease, cp Perf. Duodenal Ulcer, Perf. Gastric Ulcer, Pyelonephritis, Ureterolithiasis, urinary tract infection, choledocholithiasis. 04:43 Differential Diagnosis altered mental status, sepsis, flu. Data reviewed: vital signs, sp4 nurses notes, lab test result(s), electrolytes, hepatic panel, radiologic studies, CT scan. Consideration of Admission/Observation Escalation of care including admission/observation considered. ED course: CT is unremarkable. Lipase is normal. Patient states he has history of pancreatitis secondary to triglyceridemia. At this time there is no sign of pancreatitis on workup. We deemed patient stable for discharge home. . 11/18 00:53 Order name: CBC with Diff; Complete Time: 02:16 cp 11/18 02:16 Interpretation: Normal except: WBC 12.90. cp 11/18 00:53 Order name: CMP; Complete Time: 02:16 cp 11/18 02:16 Interpretation: Normal except: K 3.3; CL 111; GLOB 3.6; A/G 1.0. cp 11/18 00:53 Order name: Lipase; Complete Time: 02:16 cp 11/18 00:53 Order name: Urinalysis w/ reflexes; Complete Time: 04:43 cp 11/18 00:53 Order name: UDS; Complete Time: 04:43 cp 11/18 01:43 Order name: CT Abd/Pelvis - IV Contrast Only cp 11/18 00:53 Order name: IV Saline Lock; Complete Time: 01:15 cp 11/18 00:53 Order name: Labs collected and sent; Complete Time: 01:15 cp Administered Medications: 01:18 Drug: NS 0.9% IV 1000 ml IV at 1 bolus Per protocol; 1000 mL bolus Route: IV; Rate: 1 jw7 bolus; Site: right antecubital; 05:04 Follow up: Response: No adverse reaction; IV Status: Completed infusion; IV Intake: jw7 1000ml 02:24 Drug: morphine IVP or IV 4 mg IVP once over 4 mins Route: IVP; Infused Over: 4 mins; jw7 Site: right antecubital; 05:03 Follow up: Response: No adverse reaction; Marked relief of symptoms; Pain is decreased jw7 02:24 Drug: Ondansetron IVP 4 mg IVP once; over 2 minutes Route: IVP; Site: right antecubital;jw7 05:03 Follow up: Response: No adverse reaction; Marked relief of symptoms; Nausea is decreasedjw7 02:24 Drug: Famotidine IVP 20 mg IVP once; dilute with 10 mL 0.9% NaCl; give over 2 minutes jw7 Route: IVP; Site: right antecubital; 05:03 Follow up: Response: No adverse reaction; Marked relief of symptoms; Nausea is decreasedjw7 03:35 Drug: morphine IVP or IV 4 mg IVP once over 4 mins Route: IVP; Infused Over: 4 mins; ha1 Site: right antecubital; 05:03 Follow up: Response: No adverse reaction; Marked relief of symptoms; Pain is decreased jw7 Disposition: 04:43 Co-signature as Attending Physician, Donis Chambers MD I agree with the assessment sp4 and plan of care. I reviewed the patient's care provided by Advanced Practice Provider \T\ agree w/ the diagnosis \T\ care plan. I personally saw the pt \T\ performed a substantive portion of the visit, incldng all aspects of the (History/Exam/Medical Decision Making). Disposition Summary: 11/19/23 04:49 Discharge Ordered Notes: Location: Home sp4 Problem: new sp4 Symptoms: have improved sp4 Condition: Stable sp4 Diagnosis - Abdominal pain, unspecified sp4 Followup: sp4 - With: Dewayne Crouch MD - When: 7 - 10 days - Reason: Recheck today's complaints Discharge Instructions: - Discharge Summary Sheet sp4 - Abdominal Pain, Adult sp4 Forms: - Patient Portal Instructions sp4 Signatures: Dispatcher [employer] EDMS Prabhakar Young PA PA cp Calcote, Vanessa, RN RN vc1 Rena Izquierdo RN RN jw7 Ct Dixon RN RN ha1 Donis Chambers MD MD sp4
--- NOTE | 2023-11-19 04:49 | ER ---
Nurse's Notes [facility] Name: Danielito Sue Age: 43 yrs Sex: Male : 1980 Arrival Date: 11/19/2023 Time: 00:07 Bed 5 Private MD: Diagnosis: Abdominal pain, unspecified Presentation: 11/18 00:33 Chief complaint: Patient states: "My stomach is killing me". Coronavirus screen: At vc1 this time, the client does not indicate any symptoms associated with coronavirus-19. Ebola Screen: Patient negative for fever greater than or equal to 101.5 degrees Fahrenheit, and additional compatible Ebola Virus Disease symptoms Patient denies exposure to infectious person. Patient denies travel to an Ebola-affected area in the 21 days before illness onset. No symptoms or risks identified at this time. Initial Sepsis Screen: Does the patient meet any 2 criteria? No. Patient's initial sepsis screen is negative. Does the patient have a suspected source of infection? No. Patient's initial sepsis screen is negative. Risk Assessment: Do you want to hurt yourself or someone else? Patient reports no desire to harm self or others. Onset of symptoms was November 17, 2023. 00:33 Method Of Arrival: Ambulatory vc1 00:33 Acuity: YUDITH 3 vc1 00:35 Care prior to arrival: seen at [facility] tryglycerides really high 1323. told PCP vc1 would have to admit and discharged. Pain is worse. Triage Assessment: 00:45 General: Appears in no apparent distress. uncomfortable, Behavior is calm, cooperative. jw7 Pain: Complains of pain in right upper quadrant and left upper quadrant Pain does not radiate. Pain currently is 6 out of 10 on a pain scale. Quality of pain is described as pressure, squeezing, Pain began 2-3 days ago. Is continuous. EENT: No deficits noted. No signs and/or symptoms were reported regarding the EENT system. Neuro: Level of Consciousness is awake, alert, obeys commands, Oriented to person, place, time, situation, Appropriate for age. Cardiovascular: Capillary refill < 3 seconds Clubbing of nail beds is absent JVD is absent Patient's skin is warm and dry. Respiratory: Airway is patent Trachea midline Respiratory effort is even, unlabored, Respiratory pattern is regular, symmetrical. GI: Abdomen is flat, non-distended, Bowel sounds present X 4 quads. Abd is soft X 4 quads Abdomen is tender to palpation in right upper quadrant and left upper quadrant Reports upper abdominal pain. : No deficits noted. No signs and/or symptoms were reported regarding the genitourinary system. Derm: Skin is intact, is healthy with good turgor, Skin is dry, Skin is normal, Skin temperature is warm. Musculoskeletal: Circulation, motion, and sensation intact. Range of motion: intact in all extremities. Historical: - Allergies: 00:36 No Known Allergies; vc1 - PMHx: 00:36 Pancreatitis; vc1 - PSHx: 00:36 Appendectomy; Cholecystectomy; vc1 - Immunization history:: Client reports having NOT received the Covid vaccine. Flu vaccine is not up to date. - Infectious Disease History:: Denies. - Social history:: Smoking status: Patient reports the use of cigarette tobacco products, smokes one-half pack cigarettes per day. - Family history:: not pertinent. Screenin:37 Abuse screen: Denies threats or abuse. Nutritional screening: No deficits noted. vc1 Tuberculosis screening: No symptoms or risk factors identified. 00:45 [facility] ED Fall Risk Assessment (Adult) History of falling in the last 3 months, jw7 including since admission No falls in past 3 months (0 pts) Confusion or Disorientation No (0 pts) Intoxicated or Sedated No (0 pts) Impaired Gait No (0 pts) Mobility Assist Device Used No (0 pt) Altered Elimination No (0 pt) Score/Fall Risk Level 0 - 2 = Low Risk Oriented to surroundings, Maintained a safe environment, Educated pt \\T\\ family on fall prevention, incl call for assistance when getting out of bed. Assessment: 00:45 General: See Triage Assessment. jw7 02:00 Reassessment: Patient appears in no apparent distress at this time. No changes from jw7 previously documented assessment. Patient and/or family updated on plan of care and expected duration. Pain level reassessed. Patient is alert, oriented x 3, equal unlabored respirations, skin warm/dry/pink. 03:30 Reassessment: Patient and/or family updated on plan of care and expected duration. Pain ha1 level reassessed. Patient is alert, oriented x 3, equal unlabored respirations, skin warm/dry/pink. pain 7/[address] polanco. 05:02 Reassessment: Patient appears in no apparent distress at this time. Patient and/or jw7 family updated on plan of care and expected duration. Pain level reassessed. Patient is alert, oriented x 3, equal unlabored respirations, skin warm/dry/pink. Patient states symptoms have improved. Vital Signs: 00:33 BP 133 / 104; Pulse 88; Resp 18; Temp 97.8; Pulse Ox 100% ; Weight 92.99 kg; Height 5 vc1 ft. 9 in. ; Pain 6/10; 02:00 BP 132 / 83; Pulse 67; Resp 18 S; Pulse Ox 99% on R/A; jw7 03:30 BP 124 / 87; Pulse 65; Resp 18 S; Pulse Ox 99% on R/A; ha1 05:02 BP 124 / 93; Pulse 61; Resp 16 S; Pulse Ox 100% on R/A; jw7 00:33 Body Mass Index 30.27 (92.99 kg, 175.26 cm) vc1 00:33 Pain Scale: Adult vc1 ED Course: 00:11 Patient arrived in ED. jj6 00:17 Prabhakar Young PA is PHCP. cp 00:17 Donis Polanco MD is Attending Physician. cp 00:35 Triage completed. vc1 00:37 Arm band placed on left wrist. vc1 00:45 Patient has correct armband on for positive identification. Bed in low position. Call jw7 light in reach. Side rails up X 1. 01:00 Provided Education on: Use of Call Light. jw7 01:15 Initial lab(s) drawn, by me, sent to lab. Inserted saline lock: 20 gauge in right jw7 antecubital area, using aseptic technique. Blood collected. 02:24 UDS Sent. jw7 02:24 Urinalysis w/ reflexes Sent. jw7 02:38 CT Abd/Pelvis - IV Contrast Only In Process Unspecified. EDMS 04:48 Dewayne Crouch MD is Referral Physician. sp4 05:02 No provider procedures requiring assistance completed. IV discontinued, intact, jw7 bleeding controlled, No redness/swelling at site. Pressure dressing applied. Administered Medications: 01:18 Drug: NS 0.9% IV 1000 ml IV at 1 bolus Per protocol; 1000 mL bolus Route: IV; Rate: 1 jw7 bolus; Site: right antecubital; 05:04 Follow up: Response: No adverse reaction; IV Status: Completed infusion; IV Intake: jw7 1000ml 02:24 Drug: morphine IVP or IV 4 mg IVP once over 4 mins Route: IVP; Infused Over: 4 mins; jw7 Site: right antecubital; 05:03 Follow up: Response: No adverse reaction; Marked relief of symptoms; Pain is decreased jw7 02:24 Drug: Ondansetron IVP 4 mg IVP once; over 2 minutes Route: IVP; Site: right antecubital;jw7 05:03 Follow up: Response: No adverse reaction; Marked relief of symptoms; Nausea is decreasedjw7 02:24 Drug: Famotidine IVP 20 mg IVP once; dilute with 10 mL 0.9% NaCl; give over 2 minutes jw7 Route: IVP; Site: right antecubital; 05:03 Follow up: Response: No adverse reaction; Marked relief of symptoms; Nausea is decreasedjw7 03:35 Drug: morphine IVP or IV 4 mg IVP once over 4 mins Route: IVP; Infused Over: 4 mins; ha1 Site: right antecubital; 05:03 Follow up: Response: No adverse reaction; Marked relief of symptoms; Pain is decreased jw7 Medication: 00:37 VIS not applicable for this client. vc1 Intake: 05:04 IV: 1000ml; Total: 1000ml. jw7 Outcome: 04:49 Discharge ordered by . sp4 05:02 Discharged to home ambulatory, jw7 05:02 Condition: stable 05:02 Discharge instructions given to patient, Instructed on discharge instructions, follow up and referral plans. Demonstrated understanding of instructions, follow-up care, 05:04 Patient left the ED. jw7 Signatures: Dispatcher [employer] EDMS Prabhakar Young PA PA cp Jeffries, Jennifer jj6 Luz Wu RN RN vc1 Rena Izquierdo RN RN jw7 Ct Dixon RN RN ha1 Donis Polanco MD MD sp4
[2023-11-19 05:13] VITALS: BP 124/93; TEMP 97.8; O2SAT 100
--- NOTE | 2023-11-19 17:17 | RAD REPORT ---
EXAM DESCRIPTION: CT - Abdomen Pelvis W Contrast - 11/19/2023 6:35 am CLINICAL HISTORY: The patient is 43 years old and is Male; ABD PAIN TECHNIQUE: Axial computed tomography images of the abdomen and pelvis with intravenous contrast. S agittal and coronal reformatted images were created and reviewed. This CT exam was performed using one or more of the following dose reduction techniques: automated exposure control, adjustment of t he mA and/or kV according to patient size, and/or use of iterative reconstruction technique. COMPARISON: No relevant prior studies available. FINDINGS: Lung bases: Unremarkable. No mass. No consolidation. ABDOMEN: Liver: Hepatomegaly. Gallbladder and bile ducts: Gallbladder is surgically absent. No ductal dilation. Pancreas: Unremarkable. No mass. No ductal dilation. Spleen: Unremarkable. No splenomegaly. Adrenals: Unremarkable. No mass. Kidneys and ureters: Unremarkable. No solid mass. No hydronephrosis. Stomach and bowel: Unremarkable. No obstruction. No mucosal thickening. PELVIS: Appendix: No findings to suggest acute appendicitis. Bladder: Unremarkable. Reproductive: Unremarkable as visualized. ABDOMEN and PELVIS: Intraperitoneal space: Unremarkable. No free air. No significant fluid collection. Bones/joints: No acute fracture. No dislocation. Soft tissues: Unremarkable. Vasculature: Unremarkable. No abdominal aortic aneurysm. Lymph nodes: Unremarkable. No enlarged lymph nodes. IMPRESSION: No acute finding in the abdomen/pelvis. Electronically signed by: Delvis Mendenhall MD 11/19/2023 04:09 AM CDT Due to temporary technical issues with the PACS/Fluency reporting system, reports are being signed by the in house radiologists without review as a courtesy to insure prompt reporting. The interpreting radiologist is fully responsible for the content of the report.
== END 2023-11-19 05:04 | disposition home or self-care (01) ==
LOC: ER 00:07
DX: R10.11 Right upper quadrant pain (principal); F17.210 Nicotine dependence, cigarettes, uncomplicated; Z28.310 Unvaccinated for COVID-19
CPT/HCPCS: 96361; 85025; 81001; 36415; 83690; 80053; 80307; 74177; 96375; 96374; 99284; Q9967; J2405; J7030